=== PATIENT | female | born 1970 | race Caucasian/White ===

== ENCOUNTER 2017-09-28 10:03 | Emergency (ER) | payer OTHER | END 2017-09-28 12:17 | disposition home or self-care (01) | LOC: M ED 10:03 | DX: Z76.0 Encounter for issue of repeat prescription (principal); M17.11 Unilateral primary osteoarthritis, right knee; M17.12 Unilateral primary osteoarthritis, left knee; Z79.899 Other long term (current) drug therapy; Z88.0 Allergy status to penicillin; Z88.5 Allergy status to narcotic agent | CPT/HCPCS: 99283 ==

== ENCOUNTER → 2017-11-06 | Outpatient (REF) | payer OTHER ==
[2017-11-06 19:00] LABS: ESTIMATED AVERAGE GLUCOSE 108 MG/DL (60-110); HEMOGLOBIN A1c 5.4 %; TOTAL 25(OH) VITAMIN D 15.6 NG/ML (30.0-100.0)
[2017-11-06 19:05] LABS: ALBUMIN 3.6 GM/DL (3.2-5.2); ALBUMIN/GLOBULIN RATIO 0.95 (1.00-1.93); ALKALINE PHOSPHATASE 79 U/L (45-117); ALT/SGPT 27 U/L (12-78); ANION GAP 9 MEQ/L (8-16); AST/SGOT 14 U/L (7-37); BILIRUBIN,TOTAL 0.5 MG/DL (0.2-1.0); BLOOD UREA NITROGEN 11 MG/DL (7-18); CALCIUM LEVEL 8.1 MG/DL (8.5-10.1); CARBON DIOXIDE LEVEL 25 MEQ/L (21-32); CHLORIDE LEVEL 103 MEQ/L (98-107); CHOLESTEROL LEVEL 214 MG/DL (<200); CHOLESTEROL RISK RATIO 4.976 (<5); CREATININE FOR GFR 0.64 MG/DL (0.55-1.30); GLOMERULAR FILTRATION RATE > 60.0 (>58); GLUCOSE, FASTING 99 MG/DL (70-100); HDL CHOLESTEROL 43 MG/DL (>40); LDL CHOLESTEROL 125.2 MG/DL (<100); NON-HDL-C 171 MG/DL; SODIUM LEVEL 137 MEQ/L (136-145); TOTAL PROTEIN 7.4 GM/DL (6.4-8.2); TRIGLYCERIDES LEVEL 229 MG/DL (<150)
== END ==
LOC: M LAB REF 17:16
DX: E78.5 Hyperlipidemia, unspecified (principal); Z13.9 Encounter for screening, unspecified
CPT/HCPCS: 84443

== ENCOUNTER → 2017-11-13 | Outpatient (REF) | payer OTHER ==
[2017-11-13 20:11] LABS: LUTEINIZING HORMONE 2.5 mIU/mL
[2017-11-17 08:16] LABS: ESTROGENS TOTAL 107 pg/mL (.)
== END ==
LOC: M LAB REF 18:56
DX: Z13.9 Encounter for screening, unspecified (principal)

== ENCOUNTER → 2018-04-12 | Outpatient (CLI) | payer OTHER | LOC: M PAIN 14:30 | DX: M25.561 Pain in right knee (principal); M25.562 Pain in left knee; M17.0 Bilateral primary osteoarthritis of knee; G89.29 Other chronic pain; E66.01 Morbid (severe) obesity due to excess calories; Z68.43 Body mass index [BMI] 50.0-59.9, adult; Z79.899 Other long term (current) drug therapy; Z88.0 Allergy status to penicillin; Z88.1 Allergy status to other antibiotic agents; Z88.5 Allergy status to narcotic agent; Z87.891 Personal history of nicotine dependence | CPT/HCPCS: G0463 ==

== ENCOUNTER 2018-04-29 11:44 | Emergency (ER) | payer OTHER | END 2018-04-29 12:59 | disposition home or self-care (01) | LOC: M ED 11:44 | DX: M19.90 Unspecified osteoarthritis, unspecified site (principal); M79.606 Pain in leg, unspecified; M06.9 Rheumatoid arthritis, unspecified; F17.200 Nicotine dependence, unspecified, uncomplicated; Z88.8 Allergy status to other drugs, medicaments and biological substances; Z79.899 Other long term (current) drug therapy | CPT/HCPCS: 73590 ==

== ENCOUNTER → 2018-05-17 | Outpatient (CLI) | payer OTHER ==
[~2018-05-17] MED LIST: CBD OIL; GABA-1171 PO; MOBI4TAB PO; OXYC1TAB23 PO; SUPE1POW PO; TRAM50TA2 PO; TURM500C3 PO; ULTR50TA8 PO
--- NOTE | 2018-06-02 23:34 | ECWPNPC ---
PATIENT NAME: ALEXEI BARROS : 1970 GENDER: FEMALE VISIT DATE: 05/17/2018 DISCHARGE DATE: 05/17/18 1608 VISIT LOCKED DATE TIME: PHYSICIAN: TYRELL BARCENAS MD RESOURCE: TYRELL BARCENAS MD REASON FOR APPOINTMENT 1. F/U KNEE PAIN HISTORY OF PRESENT ILLNESS HISTORY OF PRESENT ILLNESS: PAIN THE PATIENT DESCRIBES THE PAIN... 48 YEAR OLD FEMALE PATIENT WITH A HISTORY OF CHRONIC KNEE PAIN. THE PATIENT DESCRIBES THE PAIN ACHING, BURNING, SHARP, SORE, TENDER, STABBING, SHOOTING, AND LASTING ALL DAY WITH A PAIN SCORE OF 10/10. THE PATIENT SAYS SHE HAS HAD THIS PAIN SINCE AROUND 2011 WHEN SHE FOUND OUT SHE HAS ARTHRITIS IN HER KNEES. THE PATIENT SAYS THAT SHE WAS TOLD THAT SHE IS TOO YOUNG FOR SURGERY AND WAS PRESCRIBED TRAMADOL FOR THE PAIN. THE PATIENT WAS USING VOLTAREN GEL, BUT REPORTS THAT IT DID NOT HELP WITH HER PAIN. THE PATIENT IS CURRENTLY USING IBUPROFEN AND BACLOFEN TO AID IN PAIN RELIEF. THE PATIENT SAYS SHE HAS BEEN USING VICODIN TEMPORARILY SINCE THE PAIN HAS BEEN SEVERE. THE PATIENT WENT TO THE EMERGENCY ROOM RECENTLY FOR A PULLED MUSCLE IN HER LEG. PATIENT DENIES UNEXPLAINABLE WEIGHT LOSS, FEVER, CHILLS, NEW CHANGES ON HER URINARY OR BOWEL CONTROL. FALL RISK SCREENING: SCREENING :NO FALLS IN THE PAST YEAR CURRENT MEDICATIONS TAKING IBUPROFEN 800 MG TABLET 1 TABLET WITH FOOD OR MILK NEEDED ORALLY THREE TIMES A DAY TAKING VITAMIN D-3 5000 UNIT TABLET 1 TABLET ORALLY EVERY OTHER DAY TAKING VICODIN _ 7.5/325 MGS 1 TAB ORAL THREE TIMES DAILY NEEDED TAKING BACLOFEN 10 MG TABLET 1 TABLET WITH FOOD OR MILK ORALLY TWICE A DAY NEEDED NOT-TAKING VOLTAREN 1 % GEL 1 STRIP TRANSDERMAL AT EACH KNEE THREE TIMES DAILY NEEDED FOR PAIN DISCONTINUED TRAMADOL HCL ER 300 MG TABLET EXTENDED RELEASE 24 HOUR 1 TABLET ORALLY ONCE A DAY DISCONTINUED VITAMIN D 74368 U TABLET 1 NULL ORALLY , NOTES: EVERY OTHER [facility] MEDICATION LIST REVIEWED AND RECONCILED WITH THE PATIENT PAST MEDICAL HISTORY ARTHRITIS BILATERAL KNEE ANXIETY AND DEPRESSION PULLED MUSCLE RIGHT LOWER LEG ALLERGIES IODINE: RASH: ALLERGY PENICILLIN (FOR ALLERGIES USE ONLY): ANAPHYLAXIS: ALLERGY DEMEROL: HEART RACED: ALLERGY LIDOCAINE: SEVERE HEART RACING FOR DAYS: ALLERGY SURGICAL HISTORY NO SURGICAL HISTORY DOCUMENTED. FAMILY HISTORY FATHER: , DIAGNOSED WITH DIABETES, OTHER MOTHER: , DIAGNOSED WITH CANCER SIBLINGS: ALIVE SON(S): ALIVE DAUGHTER(S): ALIVE 2 SON(S) , 4 DAUGHTER(S) . FATHER- ALCOHOLISMMOM-LUNG CASISTER HAS MS1 DAUGHTER HAS AUTO IMMUNE DISORDER. SOCIAL HISTORY GENERAL: TOBACCO USE ARE YOU A:FORMER SMOKER 21 YEARS AGO ALCOHOL SCREENING DID YOU HAVE A DRINK CONTAINING ALCOHOL IN THE PAST YEAR?NO POINTS0 INTERPRETATIONNEGATIVE RECREATIONAL DRUG USE DRUG USE?NO CAFFEINE CAFFEINE USE?NO RESTORATION RESTORATION NON DEMONIATIONAL LANGUAGE LANGUAGES SPOKEN:FRISIAN PRIMARY LANGUQGE BARBADIAN EDUCATION LEVEL OF EDUCATION:FINISHED COLLEGE LEARNING BARRIERS / SPECIAL NEEDS BARRIERS TO LEARNING?NO HEARING IMPAIRED?NO VISION IMPAIRED?YES :CORRECTIVE LENSES COGNITIVELY IMPAIRED?NO READINESS TO LEARN?YES LEARNING PREFERENCES?YES :TAPES/VIDEOS, DEMONSTRATION/VERBAL INSTRUCTION LEARNING CAPABILITIES PRESENT?YES EMOTIONAL BARRIERS?NO SPECIAL DEVICES?NO SINGER AND UNLOADER NEEDED?NO OCCUPATION: DO YOU FEEL SAFE IN YOUR ENVIRONMENT? YES. MARITAL STATUS: . OTHERS AT HOME: DO YOU FEEL SAFE IN YOUR ENVIRONMENT? 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 IMMUNIZATION PROGRAM DO YOU FEEL SAFE IN YOUR ENVIRONMENT? 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 PAIN CLINIC PFS, CLERGY, PUBLIC HEALTH REFERRALS PFS REFERRAL NEEDED?NO CLERGY REFERRAL NEEDED?NO PUBLIC HEALTH REFERRAL NEEDED?NO WAS THE PROVIDER NOTIFIED OF ANY PERTINENT INFO? N/A HAS THE PATIENT BEEN EDUCATED REGARDING HIS/HER PLAN OF CARE?YES HAS THE PATIENT BEEN EDUCATED REGARDING PAIN, THE RISK FOR PAIN, THE IMPORTANCE OF EFFECTIVE PAIN MANAGEMENT, AND THE PAIN ASSESSMENT PROCESS?YES ADVANCE DIRECTIVE ADVANCE DIRECTIVE DISCUSSED WITH PATIENT:NO 05/17/18 PT DOES NOT HAVE ANY ADVANCED DIRECTIVES AND SHE DECLINES INFORMATION ON HCP AT THIS TIME. AD 05/17/18 REVIEWED WITH PT. AD. HOSPITALIZATION/MAJOR DIAGNOSTIC PROCEDURE CHILDBIRTH X 6 REVIEW OF SYSTEMS REVIEWED BY: PROVIDER: TYRELL BARCENAS MD . CONSTITUTIONAL: ANY CHANGE IN YOUR MEDICAL CONDITION? YES, 2 1/2 WEEKS AGO--PULLED MUSCLE IN RIGHT LOWER LEG--NO KNOWN INJURY. WAS SEEN HERE IN THE ED. . CHILLS NO . FEVER NO . INFECTION: DO YOU HAVE NEW INFECTIONS? NO . DO YOU HAVE HISTORY OF MRSA? NO . MUSCULOSKELETAL: ANY NEW PATTERNS OF PAIN OR NUMBNESS? YES, PAIN HAS INCREASED IN RIGHT LOWER LEG SINCE HAVING THE MUSCLE TEAR. . GASTROENTEROLOGY: ANY NEW CHANGE IN BOWEL CONTROL? NO . GENITOURINARY: ANY NEW CHANGE IN BLADDER CONTROL? NO . IS THERE A CHANCE YOU COULD BE ? NO . HEMATOLOGY/LYMPH: DO YOU TAKE ANY BLOOD THINNERS? (FOR EXAMPLE- COUMADIN, PLAVIX, AGGRENOX, PLATEL, PRADAXA, OR XARELTO) NO . WHEN WAS YOUR LAST DOSE? DATE: TIME: . NEUROLOGY: HAVE YOU FALLEN IN THE PAST 6 MONTHS? NO . ANY NEW EXTREMITY NUMBNESS OR WEAKNESS? NO . CARDIOLOGY: DO YOU HAVE A PACEMAKER OR DEFIBRILLATOR? NO . RESPIRATORY: HAVE YOU BEEN SICK IN THE PAST WEEK? NO . FEVER NO . FLU LIKE SYMPTOMS? NO . COUGH NO . INTEGUMENTARY: DO YOU HAVE ANY RASHES OR OPEN SORES? NO . ALLERGIC/IMMUNO: ARE YOU ALLERGIC TO SHELLFISH OR IV DYE? NO . ANY NEW ALLERGIES? NO . PSYCHIATRIC: DO YOU HAVE THOUGHTS OF HURTING YOURSELF OR SOMEONE ELSE? NO . ARE YOU ABUSED, NEGLECTED, OR IN AN UNSAFE ENVIRONMENT? NO . ENDOCRINOLOGY: ARE YOU DIABETIC? NO . OTHER: DO YOU NEED ANY PRESCRIPTIONS? NO . IF YES, PLEASE LIST: ____ . ANY NEW PROBLEMS WITH YOUR MEDICATIONS? NO . WHEN DID YOU LAST EAT? ____ . WHEN DID YOU LAST DRINK? ____ . WHAT DID YOU LAST DRINK? ____ . NAME OF PERSON DRIVING YOU HOME? ____ . DO YOU HAVE ANY OTHER QUESTIONS OR CONCERNS NO HAD FLU VACCINE 04/2018 PT WOULD LIKE TO DISCUSS CBD OIL. HER COUNSELOR WOULD LIKE TO PUT HER ON AN ANTI-ANXIETY AND IS CAUSTIOUS DO TO MEDS PRESCRIBED HER__ANY RECOMMENDATIONS? . VITAL SIGNS WT 218 LBS, HT 55 IN, BMI 50.66 INDEX, BP 136/79 MM HG, HR 88 /MIN, RR 18 /MIN, TEMP 97.5 F, OXYGEN SAT % 97%, SAFE IN ENV? (Y/N) Y, NA INITIALS AW 1415, REVIEWED BY: AD. EXAMINATION GENERAL EXAMINATION: PATIENT IS ALERT O X 3 AND COOPERATIVE. TENDERNESS OVER BOTH KNEES. ASSESSMENTS OSTEOARTHRITIS OF BOTH KNEES, UNSPECIFIED OSTEOARTHRITIS TYPE - M17.0 (PRIMARY) TREATMENT OSTEOARTHRITIS OF BOTH KNEES, UNSPECIFIED OSTEOARTHRITIS TYPE CLINICAL NOTES: WE DISCUSSED SEVERAL ISSUES WITH MRS. BARROS'S PAIN MANAGEMENT CASE. I WOULD THE PATIENT TO START USING NUCYNTA TO SEE IF THAT HELPS RELIEVE HER PAIN. ISTOP _[id number] WAS REVIEWED. THE PATIENT WILL SIGN A NARCOTIC AGREEMENT AND DO A URINE TOXICOLOGY TODAY. I WILL GET THE PATIENT'S KNEE MRI'S FROM [facility], BUT I WILL ALSO ORDER NEW ONES DUE TO THE SEVERE PAIN AND IT HAS BEEN SEVERAL YEARS SINCE THE PATIENT'S LAST MRI. THE PATIENT WILL FOLLOW UP IN 3 WEEKS. INSTRUCTIONS WERE GIVEN, QUESTIONS WERE ANSWERED, PATIENT REPORTS UNDERSTANDING AND AGREES WITH THE PLAN. I, CAMI NAVA, DOCUMENTED THE ABOVE INFORMATION ACTING A SCRIBE FOR DR. BARCENAS. I HAVE REVIEWED THE ABOVE DOCUMENT, WRITTEN BY CAMI JEFFIBAraceli AND I VERIFY THAT IT IS ACCURATE. OTHERS START NUCYNTA TABLET, 50 MG, 1 TABLET NEEDED, ORALLY FOR PAIN, EVERY 6 HRS MDD3, 21 DAY(S), 55, REFILLS 0 PREVENTIVE MEDICINE PAIN CLINIC TEACHING: MEDICATIONS PRINTED MATERIAL GIVEN FOR NEW MEDICATION NUCYNTA AND DISCUSSED WITH PT. PROCEDURE CODES FA211 ESTABILISHED PATIENT [facility]AC[facility] CHARGE G8427 CURRENT MEDS W/DOSAGES DOCUMENTED G8730 PAIN ASSESS POS TOOL F/U PLAN DOC DISPOSITION & COMMUNICATION FOLLOW UP 3 WEEKS ELECTRONICALLY SIGNED BY TYRELL BARCENAS MD, MD ON 06/02/2018 AT 09:00 PM EST DISCLAIMER : THIS IS A VISIT SUMMARY EXTRACTED FROM THE [employer] CHART. IT IS NOT A COPY OF THE [employer] PROGRESS NOTE. MTDLiyah
== END ==
LOC: M PAIN 14:00
PROVIDERS: ATTEND Anesthesiology
DX: M17.0 Bilateral primary osteoarthritis of knee (principal); G89.29 Other chronic pain; F41.9 Anxiety disorder, unspecified; F32.9 Major depressive disorder, single episode, unspecified; E66.01 Morbid (severe) obesity due to excess calories; Z68.43 Body mass index [BMI] 50.0-59.9, adult; Z79.899 Other long term (current) drug therapy; Z88.0 Allergy status to penicillin; Z88.1 Allergy status to other antibiotic agents; Z88.5 Allergy status to narcotic agent; Z88.8 Allergy status to other drugs, medicaments and biological substances; Z87.891 Personal history of nicotine dependence

== ENCOUNTER → 2018-06-06 | Outpatient (CLI) | payer OTHER ==
--- NOTE | 2018-06-25 00:15 | ECWPNPC ---
PATIENT NAME: ALEXEI BARROS : 1970 GENDER: FEMALE VISIT DATE: 06/06/2018 DISCHARGE DATE: 06/06/18 1253 VISIT LOCKED DATE TIME: PHYSICIAN: TYRELL BARCENAS MD RESOURCE: TYRELL BARCENAS MD REASON FOR APPOINTMENT 1. KNEE PAIN PARKING NOW HISTORY OF PRESENT ILLNESS HISTORY OF PRESENT ILLNESS: PAIN THE PATIENT DESCRIBES THE PAIN... 48 YEAR OLD FEMALE PATIENT WITH A HISTORY OF CHRONIC KNEE PAIN. THE PATIENT DESCRIBES THE PAIN ACHING, BURNING, SORE, TENDER, SHARP, STABBING, SHOOTING, AND LASTING ALL DAY WITH A PAIN SCORE OF 5-9/10 DEPENDING ON PHYSICAL ACTIVITY. THE PATIENT IS CURRENTLY USING NUCYNTA TO AID IN PAIN RELIEF AND SAYS THAT THE USE OF THIS MEDICATION HELPS HER REMAIN MOBILE AND FUNCTIONAL. THE PATIENT SAYS THAT SHE HAS BEEN EXPERIENCING SOME CONSTIPATION SINCE STARTING THE NUCYNTA. PATIENT DENIES UNEXPLAINABLE WEIGHT LOSS, FEVER, CHILLS, NEW CHANGES ON HER URINARY CONTROL. FALL RISK SCREENING: SCREENING :NO FALLS IN THE PAST YEAR CURRENT MEDICATIONS TAKING NUCYNTA 50 MG TABLET 1 TABLET NEEDED ORALLY FOR PAIN EVERY 6 HRS MDD3 TAKING IBUPROFEN 800 MG TABLET 1 TABLET WITH FOOD OR MILK NEEDED ORALLY THREE TIMES A DAY TAKING VITAMIN D-3 5000 UNIT TABLET 1 TABLET ORALLY EVERY OTHER DAY TAKING BACLOFEN 10 MG TABLET 1 TABLET WITH FOOD OR MILK ORALLY TWICE A DAY NEEDED TAKING PRILOSEC 20 MG CAPSULE DELAYED RELEASE 1 CAPSULE ORALLY ONCE A DAY TAKING VOLTAREN 1 % GEL 1 STRIP TRANSDERMAL AT EACH KNEE THREE TIMES DAILY NEEDED FOR PAIN NOT-TAKING VICODIN _ 7.5/325 MGS 1 TAB ORAL THREE TIMES DAILY NEEDED MEDICATION LIST REVIEWED AND RECONCILED WITH THE PATIENT PAST MEDICAL HISTORY ARTHRITIS BILATERAL KNEE ANXIETY AND DEPRESSION PULLED MUSCLE RIGHT LOWER LEG ALLERGIES IODINE: RASH: ALLERGY PENICILLIN (FOR ALLERGIES USE ONLY): ANAPHYLAXIS: ALLERGY DEMEROL: HEART RACED: ALLERGY LIDOCAINE: SEVERE HEART RACING FOR DAYS: ALLERGY SURGICAL HISTORY NO SURGICAL HISTORY DOCUMENTED. FAMILY HISTORY FATHER: , DIAGNOSED WITH DIABETES, OTHER MOTHER: , DIAGNOSED WITH CANCER SIBLINGS: ALIVE SON(S): ALIVE DAUGHTER(S): ALIVE 2 SON(S) , 4 DAUGHTER(S) . FATHER- ALCOHOLISMMOM-LUNG CASISTER HAS MS1 DAUGHTER HAS AUTO IMMUNE DISORDER. SOCIAL HISTORY GENERAL: TOBACCO USE ARE YOU A:FORMER SMOKER 21 YEARS AGO ALCOHOL SCREENING DID YOU HAVE A DRINK CONTAINING ALCOHOL IN THE PAST YEAR?NO POINTS0 INTERPRETATIONNEGATIVE RECREATIONAL DRUG USE DRUG USE?NO CAFFEINE CAFFEINE USE?NO ORIENTAL ORTHODOX ORIENTAL ORTHODOX NON DEMONIATIONAL LANGUAGE LANGUAGES SPOKEN:SLOVENIAN PRIMARY LANGUQGE SWEDISH EDUCATION LEVEL OF EDUCATION:FINISHED COLLEGE LEARNING BARRIERS / SPECIAL NEEDS BARRIERS TO LEARNING?NO HEARING IMPAIRED?NO VISION IMPAIRED?YES :CORRECTIVE LENSES COGNITIVELY IMPAIRED?NO READINESS TO LEARN?YES LEARNING PREFERENCES?YES :TAPES/VIDEOS, DEMONSTRATION/VERBAL INSTRUCTION LEARNING CAPABILITIES PRESENT?YES EMOTIONAL BARRIERS?NO SPECIAL DEVICES?NO SPRING TACKER NEEDED?NO OCCUPATION: DO YOU FEEL SAFE IN YOUR ENVIRONMENT? YES. MARITAL STATUS: . OTHERS AT HOME: DO YOU FEEL SAFE IN YOUR ENVIRONMENT? 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 IMMUNIZATION PROGRAM DO YOU FEEL SAFE IN YOUR ENVIRONMENT? 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 PAIN CLINIC PFS, CLERGY, PUBLIC HEALTH REFERRALS PFS REFERRAL NEEDED?NO CLERGY REFERRAL NEEDED?NO PUBLIC HEALTH REFERRAL NEEDED?NO WAS THE PROVIDER NOTIFIED OF ANY PERTINENT INFO? N/A HAS THE PATIENT BEEN EDUCATED REGARDING HIS/HER PLAN OF CARE?YES HAS THE PATIENT BEEN EDUCATED REGARDING PAIN, THE RISK FOR PAIN, THE IMPORTANCE OF EFFECTIVE PAIN MANAGEMENT, AND THE PAIN ASSESSMENT PROCESS?YES ADVANCE DIRECTIVE ADVANCE DIRECTIVE DISCUSSED WITH PATIENT:NO 05/17/18 PT DOES NOT HAVE ANY ADVANCED DIRECTIVES AND SHE DECLINES INFORMATION ON HCP AT THIS TIME. AD 05/17/18 REVIEWED WITH PT. AD. HOSPITALIZATION/MAJOR DIAGNOSTIC PROCEDURE CHILDBIRTH X 6 REVIEW OF SYSTEMS REVIEWED BY: PROVIDER: TYRELL BARCENAS MD . CONSTITUTIONAL: ANY CHANGE IN YOUR MEDICAL CONDITION? NO . CHILLS NO . FEVER NO . INFECTION: DO YOU HAVE NEW INFECTIONS? NO . DO YOU HAVE HISTORY OF MRSA? NO . MUSCULOSKELETAL: ANY NEW PATTERNS OF PAIN OR NUMBNESS? NO . GASTROENTEROLOGY: ANY NEW CHANGE IN BOWEL CONTROL? NO . GENITOURINARY: ANY NEW CHANGE IN BLADDER CONTROL? NO . IS THERE A CHANCE YOU COULD BE ? NO . HEMATOLOGY/LYMPH: DO YOU TAKE ANY BLOOD THINNERS? (FOR EXAMPLE- COUMADIN, PLAVIX, AGGRENOX, PLATEL, PRADAXA, OR XARELTO) NO . WHEN WAS YOUR LAST DOSE? DATE: TIME: . NEUROLOGY: HAVE YOU FALLEN IN THE PAST 12 MONTHS? NO . ANY NEW EXTREMITY NUMBNESS OR WEAKNESS? NO . CARDIOLOGY: DO YOU HAVE A PACEMAKER OR DEFIBRILLATOR? NO . RESPIRATORY: HAVE YOU BEEN SICK IN THE PAST WEEK? NO . FEVER NO . FLU LIKE SYMPTOMS? NO . COUGH NO . INTEGUMENTARY: DO YOU HAVE ANY RASHES OR OPEN SORES? NO . ALLERGIC/IMMUNO: ARE YOU ALLERGIC TO IV DYE? NO . ANY NEW ALLERGIES? NO . PSYCHIATRIC: DO YOU HAVE THOUGHTS OF HURTING YOURSELF OR SOMEONE ELSE? NO . ARE YOU ABUSED, NEGLECTED, OR IN AN UNSAFE ENVIRONMENT? NO . ENDOCRINOLOGY: ARE YOU DIABETIC? NO . OTHER: DO YOU NEED ANY PRESCRIPTIONS? YES NUCYNTA . IF YES, PLEASE LIST: ____ . ANY NEW PROBLEMS WITH YOUR MEDICATIONS? NO . WHEN DID YOU LAST EAT? ____ . WHEN DID YOU LAST DRINK? ____ . WHAT DID YOU LAST DRINK? ____ . NAME OF PERSON DRIVING YOU HOME? ____ . DO YOU HAVE ANY OTHER QUESTIONS OR CONCERNS NO . VITAL SIGNS WT 218 LBS, HT 55 IN, BMI 50.66 INDEX, BP 141/71 MM HG, HR 104 /MIN, RR 18 /MIN, TEMP 97.2 F, OXYGEN SAT % 99%, NA INITIALS AW 1152, REVIEWED BY: KG. EXAMINATION GENERAL EXAMINATION: PATIENT IS ALERT O X 3 AND COOPERATIVE. ASSESSMENTS OSTEOARTHRITIS OF BOTH KNEES, UNSPECIFIED OSTEOARTHRITIS TYPE - M17.0 (PRIMARY) OTHER CHRONIC PAIN - G89.29 PAIN IN LEFT KNEE - M25.562 PAIN IN RIGHT KNEE - M25.561 TREATMENT OSTEOARTHRITIS OF BOTH KNEES, UNSPECIFIED OSTEOARTHRITIS TYPE CLINICAL NOTES: WE DISCUSSED SEVERAL ISSUES WITH MRS. BARROS'S PAIN MANAGEMENT CASE. THE PATIENT IS HAVING THE MRI OF BOTH KNEES NEXT WEEK AND I WILL REVIEW IT AT HER NEXT APPOINTMENT. THE PATIENT WILL CONTINUE USING THE NUCYNTA. ISTOP _[id number] WAS REVIEWED. THE PATIENT BROUGHT THE MEDICATION WITH HER TO TODAY'S VISIT IN THE ORIGINAL BOTTLE. URINE TOXICOLOGY DONE ON 05/17/2018 SHOWS CONCURRENT RESULTS. I WOULD LIKE THE PATIENT TO START USING MOVANTIK DUE TO THE OPIOID INDUCED CONSTIPATION SHE HAS BEEN EXPERIENCING. THE PATIENT WILL FOLLOW UP IN 3 WEEKS. INSTRUCTIONS WERE GIVEN, QUESTIONS WERE ANSWERED, PATIENT REPORTS UNDERSTANDING AND AGREES WITH THE PLAN. I, CAMI NAVA, DOCUMENTED THE ABOVE INFORMATION ACTING A SCRIBE FOR DR. BARCENAS. I HAVE REVIEWED THE ABOVE DOCUMENT, WRITTEN BY CAMI JEFFIBE AND I VERIFY THAT IT IS ACCURATE. OTHERS REFILL NUCYNTA TABLET, 50 MG, 1 TABLET NEEDED, ORALLY FOR PAIN, EVERY 6 HRS MDD3, 30 DAYS, 90, REFILLS 0 START MOVANTIK TABLET, 12.5 MG, 1 TABLET IN THE MORNING, ORALLY FOR CONSTIPATION, ONCE A DAY, 30 DAY(S), 30, REFILLS 1 PROCEDURE CODES FA211 ESTABILISHED PATIENT [facility] CHARGE G8427 CURRENT MEDS W/DOSAGES DOCUMENTED G8730 PAIN ASSESS POS TOOL F/U PLAN DOC DISPOSITION & COMMUNICATION FOLLOW UP 3 WEEKS (REASON: KNEE PAIN) ELECTRONICALLY SIGNED BY TYRELL BARCENAS MD, ON 06/24/2018 AT 06:20 PM EST DISCLAIMER : THIS IS A VISIT SUMMARY EXTRACTED FROM THE [employer] CHART. IT IS NOT A COPY OF THE [employer] PROGRESS NOTE. MTDD
== END ==
LOC: M PAIN 11:30
PROVIDERS: ATTEND Anesthesiology
DX: M17.0 Bilateral primary osteoarthritis of knee (principal); G89.29 Other chronic pain; F41.9 Anxiety disorder, unspecified; F32.9 Major depressive disorder, single episode, unspecified; E66.01 Morbid (severe) obesity due to excess calories; Z68.43 Body mass index [BMI] 50.0-59.9, adult; Z79.899 Other long term (current) drug therapy; Z88.0 Allergy status to penicillin; Z88.1 Allergy status to other antibiotic agents; Z88.5 Allergy status to narcotic agent; Z88.8 Allergy status to other drugs, medicaments and biological substances; Z87.891 Personal history of nicotine dependence

== ENCOUNTER → 2018-06-11 | Outpatient (CLI) | payer OTHER ==
--- NOTE | 2018-06-12 09:45 | REP ---
MRI BILATERAL KNEES: TECHNIQUE: Axial proton density fat saturation, sagittal proton density T2 STIR, water excitation, coronal proton density, proton density fat saturation. RIGHT KNEE: There is a complex tear of the anterior and posterior horns of the medial meniscus. There is fraying of the central aspect of the posterior horn of the lateral meniscus. The cruciate and collateral ligaments are intact. The extensor mechanism is intact. There is moderate diffuse chondromalacia of the patella with some fissuring of the cartilage of the medial patellar facet. There is moderate spurring of the lateral patellar facet and superior and inferior poles of the patella. There is subchondral marrow edema and cystic change involving the lateral patellar facet with fissuring of the cartilage at that location as well. There is relatively mild diffuse chondromalacia in the lateral joint compartment. There is moderately severe chondromalacia along the medial femoral condyle and tibial plateau with associated subchondral marrow edema at these locations. There is moderate spurring of the femoral condyles and tibial plateaus greatest medially. There is a moderate joint effusion. A small amount of fluid extends into the medial popliteal fossa. IMPRESSION: Extensive complex tear anterior and posterior horns medial meniscus. There is fraying centrally of the posterior horn of the lateral meniscus. Cruciate and collateral ligaments are intact. 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 There is fissuring of the cartilage in both the medial and lateral patellar facets with subchondral marrow edema and cystic change in the lateral patellar facet. There is subchondral marrow edema in the medial femoral condyle and tibial plateau. Moderate joint effusion. LEFT KNEE: There is a complex tear of the anterior and posterior horns of the medial meniscus. There is fraying centrally of the posterior horn of the lateral meniscus. Inferior aspect of the anterior cruciate ligament deviates laterally and appears at least partially torn. Posterior cruciate ligament is intact. The collateral ligaments are intact. Extensor mechanism is intact. There is moderate spurring of the lateral patellar facet as well as the superior and inferior poles of the patella. There is moderate diffuse chondromalacia of the patellar cartilage with subchondral cystic changes and marrow edema centrally extending into the lateral patellar facet. Moderate diffuse spurring is seen of the femoral condyles and tibial plateaus. There is mild diffuse chondromalacia in the lateral joint compartment. There is fairly severe chondromalacia of the medial femoral condyle and tibial plateau with subchondral marrow edema and cystic change at these locations. There is a moderate joint effusion. There are tiny loculated cysts posterior to the posterior cruciate ligament inferior aspect. These span 2 cm transversely with a maximum thickness of about 9 mm. IMPRESSION: Complex tears anterior and posterior horns medial meniscus. There is fraying centrally of the posterior horn of the lateral meniscus. Inferior aspect of the anterior cruciate ligament deviates laterally and appears at least partially torn. Significant diffuse chondromalacia, most severe in the medial joint compartment. There is subchondral marrow edema and cystic change in the patella as well as in the medial femoral condyle and tibial plateau. Moderate joint effusion. Tiny loculated cysts are seen posterior to the inferior aspect of the posterior cruciate ligament. Electronically Signed by Sigifredo Garcia MD 06/12/2018 12:44 P
== END ==
LOC: M RAD 16:33
PROVIDERS: ATTEND Anesthesiology
DX: S83.231A Complex tear of medial meniscus, current injury, right knee, initial encounter (principal); M94.261 Chondromalacia, right knee; M25.641 Stiffness of right hand, not elsewhere classified; S83.232A Complex tear of medial meniscus, current injury, left knee, initial encounter; M94.262 Chondromalacia, left knee; M25.462 Effusion, left knee; X58.XXXA Exposure to other specified factors, initial encounter; Y92.9 Unspecified place or not applicable

== ENCOUNTER → 2018-07-03 | Outpatient (REF) | payer OTHER ==
[2018-07-03 20:09] LABS: APPEARANCE, URINE CLEAR (CLEAR); BACTERIA, URINE AUTO NEGATIVE (NEGATIVE); BILIRUBIN, URINE AUTO NEGATIVE (NEGATIVE); BLOOD, URINE BLOOD 2+ (NEGATIVE); COLOR, URINE YELLOW (YELLOW); GLUCOSE, URINE (UA) AUTO NEGATIVE (NEGATIVE); KETONE, URINE AUTO NEGATIVE (NEGATIVE); LEUKOCYTE ESTERASE, URINE AUTO NEGATIVE (NEGATIVE); NITRITE, URINE AUTO NEGATIVE (NEGATIVE); PROTEIN, URINE AUTO NEGATIVE (NEGATIVE); RBC, URINE AUTO 13 /HPF (0-3); SPECIFIC GRAVITY URINE AUTO 1.013 (1.002-1.035); SQUAMOUS EPITHELIAL CELL UR AU 0 /HPF (0-6); UROBILINOGEN, URINE AUTO 0.2 mg/dL (0.0-2.0); WBC, URINE AUTO 0 /HPF (0-3)
== END ==
LOC: M LAB REF 17:24
PROVIDERS: ATTEND Nurse Practitioner Adult Health
DX: Z01.818 Encounter for other preprocedural examination (principal)

== ENCOUNTER → 2018-07-03 | Outpatient (REF) | payer OTHER ==
[2018-07-03 19:31] LABS: CHOLESTEROL RISK RATIO 4.837 (<5); RHEUMATOID FACTOR QUANT 55.7 IU/ML (<15.0); THYROID STIMULATING HORMONE 2.9 uIU/ML (0.358-3.740)
[2018-07-03 19:32] LABS: INR 0.93; PROTHROMBIN TIME 12.6 SECONDS (12.1-14.4)
[2018-07-03 19:33] LABS: TOTAL 25(OH) VITAMIN D 20.4 NG/ML (30.0-100.0)
[2018-07-03 20:19] LABS: HEMOGLOBIN A1c 6.1 %
[2018-07-05 15:05] LABS: ANTINUCLEAR ANTIBODIES DIRECT Negative (Negative)
== END ==
LOC: M LAB REF 17:06
PROVIDERS: ATTEND Nurse Practitioner Adult Health
DX: Z13.9 Encounter for screening, unspecified (principal)

== ENCOUNTER → 2018-08-10 | Outpatient (CLI) | payer OTHER ==
--- NOTE | 2018-08-10 16:10 | REP ---
Clinical: Left calf pain . Technique: Garcia scale and color Doppler evaluation using linear high frequency transducer. Findings: Ultrasound examination of the left lower extremity deep venous structures from the common femoral vein to the popliteal vein demonstrates normal compressibility flow and wave patterns in response to respiration and augmentation. There is no evidence for deep venous thrombosis. Impression: No evidence for deep venous thrombosis. Electronically Signed by Jerson Sood MD 08/10/2018 04:01 P
== END ==
LOC: M RAD 15:12
DX: M79.662 Pain in left lower leg (principal)

== ENCOUNTER → 2018-08-14 | Outpatient (CLI) | payer OTHER | LOC: M PAIN 13:45 | PROVIDERS: ATTEND Anesthesiology | DX: M25.569 Pain in unspecified knee (principal); Z53.29 Procedure and treatment not carried out because of patient's decision for other reasons ==

== ENCOUNTER → 2018-08-16 | Outpatient (REF) | payer OTHER ==
[2018-08-18 15:33] LABS: Lyme Disease IgG/IgM Antibodie <0.91 ISR (0.00-0.90); Lyme Disease IgM Ab Quantitati <0.80 index (0.00-0.79)
[2018-08-21 00:06] LABS: CYCLIC CITRULLINATED PEPTIDE 7 units (0-19)
== END ==
LOC: M LAB REF 18:34
PROVIDERS: ATTEND Nurse Practitioner Adult Health
DX: M06.9 Rheumatoid arthritis, unspecified (principal)

== ENCOUNTER → 2018-09-11 | Outpatient (RCR) | payer OTHER | LOC: M PT 09-03 14:35 | PROVIDERS: ATTEND Orthopaedic Surgery | DX: M17.12 Unilateral primary osteoarthritis, left knee (principal) ==

== ENCOUNTER 2018-10-09 09:15 | Outpatient (RCR) | payer OTHER | END 2018-10-12 | LOC: M PT 09:15 | PROVIDERS: ATTEND Orthopaedic Surgery | DX: M17.12 Unilateral primary osteoarthritis, left knee (principal) ==

== ENCOUNTER → 2018-11-01 | Outpatient (REF) | payer OTHER ==
[2018-11-01 19:25] LABS: BASO # 0.1 10^3/uL (0.0-0.2); BASO % 0.8 % (0.0-1.0); EOS # 0.1 10^3/uL (0.0-0.50); EOS % 0.8 % (0.0-3.0); HEMATOCRIT 43.9 % (36.0-47.0); HEMOGLOBIN 14.2 g/dl (12.0-15.5); LYMPH # 2.9 10^3/uL (1.5-4.5); LYMPH % 37.9 % (24.0-44.0); MEAN CORPUSCULAR HEMOGLOBIN 28.4 pg (27.0-33.0); MEAN CORPUSCULAR HGB CONC 32.3 g/dl (32.0-36.5); MEAN CORPUSCULAR VOLUME 87.8 fl (80.0-96.0); MONO # 0.7 10^3/uL (0.0-0.8); MONO % 9.7 % (0.0-5.0); NEUTROPHILS # 3.8 10^3/uL (1.8-7.7); NEUTROPHILS % 50.5 % (36.0-66.0); PLATELET COUNT, AUTOMATED 346 10^3/uL (150-450); WHITE BLOOD COUNT 7.6 10^3/uL (4.0-10.0)
[2018-11-01 19:28] LABS: ALBUMIN 3.9 GM/DL (3.2-5.2); ALT/SGPT 41 U/L (12-78); BILIRUBIN,TOTAL 0.4 MG/DL (0.2-1.0); BLOOD UREA NITROGEN 12 MG/DL (7-18); CALCIUM LEVEL 9.2 MG/DL (8.5-10.1); CARBON DIOXIDE LEVEL 26 MEQ/L (21-32); CHLORIDE LEVEL 103 MEQ/L (98-107); CPK CREATINE PHOSPHOKINASE 58 U/L (26-192); CREATININE FOR GFR 0.77 MG/DL (0.55-1.30); GLOMERULAR FILTRATION RATE > 60.0 (>51); GLUCOSE, FASTING 80 MG/DL (70-100); PHOSPHORUS LEVEL 3.9 MG/DL (2.5-4.9); POTASSIUM SERUM 4.2 MEQ/L (3.5-5.1); SODIUM LEVEL 137 MEQ/L (136-145); TOTAL PROTEIN 7.8 GM/DL (6.4-8.2)
[2018-11-01 19:36] LABS: TOTAL 25(OH) VITAMIN D 34.5 NG/ML (30.0-100.0)
== END ==
LOC: M LAB REF 18:36
PROVIDERS: ATTEND Nurse Practitioner Adult Health
DX: R25.2 Cramp and spasm (principal)

== ENCOUNTER → 2018-11-05 | Outpatient (CLI) | payer OTHER ==
--- NOTE | 2018-11-14 00:44 | ECWPNPC ---
PATIENT NAME: ALEXEI BARROS : 1970 GENDER: FEMALE VISIT DATE: 11/05/2018 DISCHARGE DATE: 11/05/18 1428 VISIT LOCKED DATE TIME: PHYSICIAN: TYRELL BARCENAS MD RESOURCE: TYRELL BARCENAS MD REASON FOR APPOINTMENT 1. KNEE PAIN HISTORY OF PRESENT ILLNESS HISTORY OF PRESENT ILLNESS: PAIN THE PATIENT DESCRIBES THE PAIN... 48 YEAR OLD FEMALE PATIENT WITH A HISTORY OF CHRONIC KNEE PAIN. THE PATIENT DESCRIBES THE PAIN ACHING, BURNING, STABBING, SHOOTING, SORE, TENDER, SHARP, AND DAILY WITH A PAIN SCORE OF 6-10/10 DEPENDING ON PHYSICAL ACTIVITY. THE PATIENT HAD A LEFT KNEE OPERATION RECENTLY DONE AND SHE REPORTS FEELING BETTER, BUT STILL EXPERIENCES CRAMPING AT NIGHTS. THE PATIENT SAYS SHE IS NOW EXPERIENCING PAIN IN HER RIGHT KNEE THAT IS BEGINNING TO AFFECT HER HIPS AND BACKS. THE PATIENT STATES SHE PLANS TO HAVE RIGHT KNEE SURGERY WELL. THE PATIENT SAYS SHE IS USING FLEXERIL THAT HELPS WITH PAIN AND SPASMS, HOWEVER IT MAKES HER VERY TIRED. THE PATIENT SAYS SHE IS ALSO USING VICODIN 7.5-325 MG 2-3 TIMES DAILY TO HELP WITH HER PAIN. PATIENT DENIES UNEXPLAINABLE WEIGHT LOSS, FEVER, CHILLS, NEW CHANGES ON HER URINARY OR BOWEL CONTROL. FALL RISK SCREENING: SCREENING :NO FALLS REPORTED IN THE LAST YEAR CURRENT MEDICATIONS TAKING IBUPROFEN 800 MG TABLET 1 TABLET WITH FOOD OR MILK NEEDED ORALLY THREE TIMES A DAY TAKING CYCLOBENZAPRINE HCL 10 MG TABLET 1 TABLET NEEDED ORALLY THREE TIMES A DAY, NOTES: UNSURE OF DOSE TAKING METOPROLOL TARTRATE 50 MG TABLET ER 1 TABLET WITH FOOD ORALLY DAILY TAKING PROTONIX 40 MG TABLET DELAYED RELEASE 1 TABLET ORALLY ONCE A DAY TAKING VICODIN _ 7.5/325 MGS 1 TAB ORAL EVERY 4 HOURS NEEDED TAKING VITAMIN D (ERGOCALCIFEROL) 78601 UNIT CAPSULE 1 CAPSULE ORALLY NOT-TAKING MOVANTIK 12.5 MG TABLET 1 TABLET IN THE MORNING ORALLY FOR CONSTIPATION ONCE A DAY NOT-TAKING SENNOSIDES 15 MG TABLET 1 TABLET AT BEDTIME NEEDED ORALLY FOR CONSTIPATION ONCE A DAY NOT-TAKING SENOKOT 8.6 MG TABLET 2 TABLETS AT BEDTIME NEEDED ORALLY FOR CONSTIPATION ONCE A DAY NOT-TAKING BACLOFEN 10 MG TABLET 1 TABLET WITH FOOD OR MILK ORALLY TWICE A DAY NEEDED NOT-TAKING PRILOSEC 20 MG CAPSULE DELAYED RELEASE 1 CAPSULE ORALLY ONCE A DAY NOT-TAKING VOLTAREN 1 % GEL 1 STRIP TRANSDERMAL AT EACH KNEE THREE TIMES DAILY NEEDED FOR PAIN NOT-TAKING NUCYNTA 50 MG TABLET 1 TABLET NEEDED ORALLY FOR PAIN EVERY 6 HRS MDD3 DISCONTINUED VITAMIN D-3 5000 UNIT TABLET 1 TABLET ORALLY EVERY OTHER DAY MEDICATION LIST REVIEWED AND RECONCILED WITH THE PATIENT PAST MEDICAL HISTORY ARTHRITIS BILATERAL KNEE ANXIETY AND DEPRESSION PULLED MUSCLE RIGHT LOWER LEG HIGH BLOOD PRESSURE / ELEVATED HEART RATE ALLERGIES IODINE: RASH - ALLERGY PENICILLIN (FOR ALLERGIES USE ONLY): ANAPHYLAXIS - ALLERGY DEMEROL: HEART RACED - ALLERGY LIDOCAINE: SEVERE HEART RACING FOR DAYS - ALLERGY SURGICAL HISTORY LEFT KNEE REPLACEMENT 07/24/18 FAMILY HISTORY FATHER: , DIAGNOSED WITH DIABETES, OTHER MOTHER: , CANCER SIBLINGS: ALIVE SON(S): ALIVE DAUGHTER(S): ALIVE 2 SON(S) , 4 DAUGHTER(S) . FATHER- ALCOHOLISMMOM-LUNG CASISTER HAS MS1 DAUGHTER HAS AUTO IMMUNE DISORDER. SOCIAL HISTORY GENERAL: TOBACCO USE ARE YOU A:FORMER SMOKER 21 YEARS AGO IMMUNIZATION PROGRAM DO YOU FEEL SAFE IN YOUR ENVIRONMENT? 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 OTHERS AT HOME: DO YOU FEEL SAFE IN YOUR ENVIRONMENT? 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 EDUCATION LEVEL OF EDUCATION:FINISHED COLLEGE LANGUAGE LANGUAGES SPOKEN:SAMMARINESE PRIMARY LANGUGE AFGHAN RECREATIONAL DRUG USE DRUG USE?NO LEARNING BARRIERS / SPECIAL NEEDS BARRIERS TO LEARNING?NO HEARING IMPAIRED?NO VISION IMPAIRED?YES :CORRECTIVE LENSES COGNITIVELY IMPAIRED?NO READINESS TO LEARN?YES LEARNING PREFERENCES?YES :TAPES/VIDEOS, DEMONSTRATION/VERBAL INSTRUCTION LEARNING CAPABILITIES PRESENT?YES EMOTIONAL BARRIERS?NO SPECIAL DEVICES?NO CANDY ATTENDANT NEEDED?NO PAIN CLINIC PFS, CLERGY, PUBLIC HEALTH REFERRALS PFS REFERRAL NEEDED?NO CLERGY REFERRAL NEEDED?NO PUBLIC HEALTH REFERRAL NEEDED?NO WAS THE PROVIDER NOTIFIED OF ANY PERTINENT INFO? N/A HAS THE PATIENT BEEN EDUCATED REGARDING HIS/HER PLAN OF CARE?YES HAS THE PATIENT BEEN EDUCATED REGARDING PAIN, THE RISK FOR PAIN, THE IMPORTANCE OF EFFECTIVE PAIN MANAGEMENT, AND THE PAIN ASSESSMENT PROCESS?YES LATEX QUESTIONNAIRE LATEX ALLERGY : HAVE YOU EVER DEVELOPED ANY TYPE OF REACTION AFTER HANDLING LATEX PRODUCTS SUCH RUBBER GLOVES, CONDOMS, DIAPHRAGMS, BALLOONS, SOCKS, OR UNDERWEAR?NO LATEX ALLERGY : HAVE YOU EVER DEVELOPED ANY TYPE OF REACTION DURING OR AFTER DENTAL APPOINTMENT, VAGINAL/RECTAL EXAMINATION, SURGICAL PROCEDURE, OR ANY OTHER EXPOSURE?NO LATEX RISK : HAVE YOU EVER HAD ANY DIFFICULTY BREATHING OR HIVES AFTER EATING OR HANDLING ANY FRUITS, OR VEGETABLES; SUCH KIWI, BANANAS, STONE FRUITS, OR CHESTNUTSNO LATEX RISK : DO YOU HAVE A PREVIOUS PERSONAL HISTORY OF MORE THAN NINE SURGERIES, SPINA BIFIDA, OR REPEATED CATHERTIZATIONS? NO LATEX RISK : ARE YOU FREQUENTLY EXPOSED TO LATEX PRODUCTS IN YOUR OCCUPATION?NO DATE ASKED : 08/14/2018 CAFFEINE CAFFEINE USE?NO ADVANCE DIRECTIVE ADVANCE DIRECTIVE DISCUSSED WITH PATIENT:YES PATIENT DECLINED HCP INFORMATION. ANABAPTIST ANABAPTIST NON DEMONIATIONAL MARITAL STATUS: . ALCOHOL SCREENING DID YOU HAVE A DRINK CONTAINING ALCOHOL IN THE PAST YEAR?NO POINTS0 INTERPRETATIONNEGATIVE OCCUPATION: DO YOU FEEL SAFE IN YOUR ENVIRONMENT? YES. 05/17/18 REVIEWED WITH PT. AD. HOSPITALIZATION/MAJOR DIAGNOSTIC PROCEDURE CHILDBIRTH X 6 SURGERY RELATED 07/24/18 REVIEW OF SYSTEMS REVIEWED BY: PROVIDER: TYRELL BARCENAS MD . CONSTITUTIONAL: ANY CHANGE IN YOUR MEDICAL CONDITION? NO . CHILLS NO . FEVER NO . INFECTION: DO YOU HAVE NEW INFECTIONS? NO . DO YOU HAVE HISTORY OF MRSA? NO . MUSCULOSKELETAL: ANY NEW PATTERNS OF PAIN OR NUMBNESS? YES, LEFT LEG PAIN AROUND KNEE . GASTROENTEROLOGY: ANY NEW CHANGE IN BOWEL CONTROL? NO . GENITOURINARY: ANY NEW CHANGE IN BLADDER CONTROL? NO . IS THERE A CHANCE YOU COULD BE ? NO . HEMATOLOGY/LYMPH: DO YOU TAKE ANY BLOOD THINNERS? (FOR EXAMPLE- COUMADIN, PLAVIX, AGGRENOX, PLATEL, PRADAXA, OR XARELTO) NO . WHEN WAS YOUR LAST DOSE? DATE: TIME: . NEUROLOGY: HAVE YOU FALLEN IN THE PAST 12 MONTHS? NO . ANY NEW EXTREMITY NUMBNESS OR WEAKNESS? NO . CARDIOLOGY: DO YOU HAVE A PACEMAKER OR DEFIBRILLATOR? NO . RESPIRATORY: HAVE YOU BEEN SICK IN THE PAST WEEK? NO . FEVER NO . FLU LIKE SYMPTOMS? NO . COUGH NO . INTEGUMENTARY: DO YOU HAVE ANY RASHES OR OPEN SORES? NO . ALLERGIC/IMMUNO: ARE YOU ALLERGIC TO IV DYE? NO . ANY NEW ALLERGIES? NO . PSYCHIATRIC: DO YOU HAVE THOUGHTS OF HURTING YOURSELF OR SOMEONE ELSE? NO . ARE YOU ABUSED, NEGLECTED, OR IN AN UNSAFE ENVIRONMENT? NO . ENDOCRINOLOGY: ARE YOU DIABETIC? NO . OTHER: DO YOU NEED ANY PRESCRIPTIONS? YES, DISCUSS WITH DR . IF YES, PLEASE LIST: ____ . ANY NEW PROBLEMS WITH YOUR MEDICATIONS? YES, ON NEW MEDS SINCE SURGERY. PAIN MANAGEMENT NEEDS TO PRESCRIBE PAIN MEDS . WHEN DID YOU LAST EAT? ____ . WHEN DID YOU LAST DRINK? ____ . WHAT DID YOU LAST DRINK? ____ . NAME OF PERSON DRIVING YOU HOME? ____ . DO YOU HAVE ANY OTHER QUESTIONS OR CONCERNS YES ,PT WOULD LIKE AN INJECTION IN RIGHT LEG . VITAL SIGNS WT 236.2 LBS, HT 55 IN, BMI 54.89 INDEX, BP 133/85 MM HG, HR 99 /MIN, RR 18 /MIN, TEMP 98%, OXYGEN SAT % 98%, NA INITIALS SC 13:21, REVIEWED BY: MEGHAN. EXAMINATION GENERAL EXAMINATION: PATIENT IS ALERT O X 3 AND COOPERATIVE. TENDERNESS OVER THE MEDIAL ASPECT OF THE RIGHT KNEE. MRI OF THE BILATERAL KNEES DONE ON 06/11/2018 SHOWS SEVERAL CHANGES OCCURRING IN BOTH KNEES SUCH , SUBCHONDRAL EDEMA, TEARS OVER MENISCUS, AND EFFUSION. 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 BARROS'S PAIN MANAGEMENT CASE. DUE TO THE KNEE SWELLING AND PAIN, I WOULD LIKE TO MOVE FORWARD WITH A RIGHT KNEE INJECTION AFTER APPROVED BY HER ORTHOPEDIC SURGEON. THE PATIENT WILL CONTINUE WITH HYDROCODONE 7.5-325 MG THAT WAS PRESCRIBED BY HER PRIMARY CARE PHYSICIAN, WHICH I REFILLED FOR HER AT TODAY'S VISIT. I WILL SEEK A NARCOTIC DOCTOR TO DOCTOR AGREEMENT FROM THE PATIENT'S PRIMARY CARE PROVIDER, PRATIMA BECK, TO CONTINUE PRESCRIBING THIS MEDICATION IN THE FUTURE. I WILL START THE PATIENT ON TIZANIDINE 2 MG 1-2 TABLETS PER NIGHT, 50 TOTAL FOR THE MONTH, TO HELP WITH SPASTICITY AND PAIN. UTOX DONE ON 05/19/2018 SHOWS CONCURRENT RESULTS. ISTOP __# [id number] WAS REVIEWED. THE PATIENT WILL FOLLOW UP IN 4 WEEKS. INSTRUCTIONS WERE GIVEN, QUESTIONS WERE ANSWERED, PATIENT REPORTS UNDERSTANDING AND AGREES WITH THE PLAN. I, IRENE HALE, DOCUMENTED THE ABOVE INFORMATION ACTING A SCRIBE FOR DR. BARCENAS. I HAVE REVIEWED THE ABOVE DOCUMENT, WRITTEN BY IRENE JEFFIBAraceli AND I VERIFY THAT IT IS ACCURATE. . OTHERS START TIZANIDINE HCL TABLET, 2 MG, 1 TABLET NEEDED, ORALLY FOR SPASMS AND PAIN, BEFORE BEDTIME MAY REPEAT IN 4 HRS MDD2, 30 DAYS, 50, REFILLS 1 START HYDROCODONE-ACETAMINOPHEN TABLET, 7.5-325 MG, 1 TABLET NEEDED, ORALLY, EVERY 8 HRS PRN FOR PAIN MDD3, 30 DAYS, 90, REFILLS 0 PROCEDURE CODES FA211 ESTABILISHED PATIENT [facility] CHARGE G8427 CURRENT MEDS W/DOSAGES DOCUMENTED G8730 PAIN ASSESS POS TOOL F/U PLAN DOC DISPOSITION & COMMUNICATION FOLLOW UP 4 WEEKS (REASON: RIGHT KNEE INJECTION) ELECTRONICALLY SIGNED BY TYRELL BARCENAS MD, ON 11/13/2018 AT 03:41 PM EDT DISCLAIMER : THIS IS A VISIT SUMMARY EXTRACTED FROM THE [employer] CHART. IT IS NOT A COPY OF THE [employer] PROGRESS NOTE. LOWELL
== END ==
LOC: M PAIN 13:00
PROVIDERS: ATTEND Anesthesiology
DX: G89.29 Other chronic pain (principal); M25.561 Pain in right knee; M25.562 Pain in left knee; M94.261 Chondromalacia, right knee; F41.9 Anxiety disorder, unspecified; F32.9 Major depressive disorder, single episode, unspecified; Z96.652 Presence of left artificial knee joint; Z87.891 Personal history of nicotine dependence; Z79.899 Other long term (current) drug therapy; Z88.0 Allergy status to penicillin; Z88.5 Allergy status to narcotic agent; Z88.8 Allergy status to other drugs, medicaments and biological substances

== ENCOUNTER 2018-11-06 13:00 | Outpatient (RCR) | payer OTHER | END 2018-11-11 | LOC: M PT 13:00 | PROVIDERS: ATTEND Orthopaedic Surgery | DX: M17.12 Unilateral primary osteoarthritis, left knee (principal) ==

== ENCOUNTER 2018-11-13 12:20 | Outpatient (RCR) | payer OTHER | END 2018-11-13 13:45 | disposition home or self-care (01) | LOC: M PT 12:20 | PROVIDERS: ATTEND Orthopaedic Surgery | DX: Z47.1 Aftercare following joint replacement surgery (principal); Z96.652 Presence of left artificial knee joint ==

== ENCOUNTER 2018-12-06 13:45 | Outpatient (RCR) | payer OTHER | END 2018-12-12 | LOC: M PT 13:45 | PROVIDERS: ATTEND Orthopaedic Surgery | DX: Z47.89 Encounter for other orthopedic aftercare (principal); M17.11 Unilateral primary osteoarthritis, right knee ==

== ENCOUNTER → 2018-12-11 | Outpatient (REF) | payer OTHER ==
[2018-12-11 19:48] LABS: BASO % 0.4 % (0.0-1.0); EOS # 0.1 10^3/uL (0.0-0.50); EOS % 0.7 % (0.0-3.0); HEMATOCRIT 42.7 % (36.0-47.0); HEMOGLOBIN 13.6 g/dl (12.0-15.5); LYMPH # 2.7 10^3/uL (1.5-4.5); LYMPH % 30.2 % (24.0-44.0); MEAN CORPUSCULAR HEMOGLOBIN 28.3 pg (27.0-33.0); MEAN CORPUSCULAR HGB CONC 31.9 g/dl (32.0-36.5); MONO # 0.8 10^3/uL (0.0-0.8); MONO % 9.1 % (0.0-5.0); NEUTROPHILS # 5.3 10^3/uL (1.8-7.7); NEUTROPHILS % 59.4 % (36.0-66.0); PLATELET COUNT, AUTOMATED 311 10^3/uL (150-450)
[2018-12-11 19:55] LABS: ALBUMIN 3.9 GM/DL (3.2-5.2); ALT/SGPT 34 U/L (12-78); BILIRUBIN,TOTAL 0.3 MG/DL (0.2-1.0); BLOOD UREA NITROGEN 15 MG/DL (7-18); CARBON DIOXIDE LEVEL 27 MEQ/L (21-32); CHLORIDE LEVEL 105 MEQ/L (98-107); CREATININE FOR GFR 1.01 MG/DL (0.55-1.30); GLOMERULAR FILTRATION RATE > 60.0 (>51); GLUCOSE, FASTING 89 MG/DL (70-100); POTASSIUM SERUM 4.3 MEQ/L (3.5-5.1); SODIUM LEVEL 139 MEQ/L (136-145); TOTAL PROTEIN 7.8 GM/DL (6.4-8.2)
[2018-12-11 20:06] LABS: APPEARANCE, URINE CLEAR (CLEAR); BACTERIA, URINE AUTO NEGATIVE (NEGATIVE); BILIRUBIN, URINE AUTO NEGATIVE (NEGATIVE); BLOOD, URINE BLOOD 2+ (NEGATIVE); COLOR, URINE YELLOW (YELLOW); GLUCOSE, URINE (UA) AUTO NEGATIVE (NEGATIVE); KETONE, URINE AUTO NEGATIVE (NEGATIVE); LEUKOCYTE ESTERASE, URINE AUTO NEGATIVE (NEGATIVE); NITRITE, URINE AUTO NEGATIVE (NEGATIVE); PROTEIN, URINE AUTO NEGATIVE (NEGATIVE); RBC, URINE AUTO 6 /HPF (0-3); SPECIFIC GRAVITY URINE AUTO 1.013 (1.002-1.035); SQUAMOUS EPITHELIAL CELL UR AU 0 /HPF (0-6); UROBILINOGEN, URINE AUTO 0.2 mg/dL (0.0-2.0); WBC, URINE AUTO 0 /HPF (0-3)
[2018-12-11 20:07] LABS: INR 0.93; PROTHROMBIN TIME 12.2 SECONDS (11.8-14.0)
== END ==
LOC: M LAB REF 19:00
PROVIDERS: ATTEND Nurse Practitioner Adult Health
DX: Z01.818 Encounter for other preprocedural examination (principal)

== ENCOUNTER 2018-12-13 14:02 | Outpatient (RCR) | payer OTHER | END 2019-01-12 | LOC: M PT 14:02 | PROVIDERS: ATTEND Orthopaedic Surgery | DX: Z47.1 Aftercare following joint replacement surgery (principal); Z96.652 Presence of left artificial knee joint ==

== ENCOUNTER → 2018-12-21 | Outpatient (CLI) | payer OTHER ==
--- NOTE | 2019-01-02 00:13 | ECWPNPC ---
PATIENT NAME: ALEXEI BARROS : 1970 GENDER: FEMALE VISIT DATE: 12/21/2018 DISCHARGE DATE: 12/21/18 1130 VISIT LOCKED DATE TIME: PHYSICIAN: TYRELL BARCENAS MD RESOURCE: TYRELL BARCENAS MD REASON FOR APPOINTMENT 1. BILATERAL KNEE PAIN HISTORY OF PRESENT ILLNESS HISTORY OF PRESENT ILLNESS: PAIN THE PATIENT DESCRIBES THE PAIN... 48 YEAR OLD FEMALE PATIENT WITH A HISTORY OF CHRONIC KNEE PAIN. THE PATIENT DESCRIBES THE PAIN ACHING, BURNING, SORE, TENDER, SHARP, STABBING AND SHOOTING THROUGHOUT THE DAY WITH A PAIN SCORE OF 5-10/10 DEPENDING ON PHYSICAL ACTIVITY. THE PATIENT HAS A HISTORY OF LEFT KNEE REPLACEMENT SURGERY WHICH HAS HELPED, BUT STATES SHE STILL EXPERIENCES CRAMPING AT NIGHT. THE PATIENT SAYS SHE IS CONSIDERING GETTING RIGHT KNEE SURGERY SOON WELL. THE PATIENT SAYS SHE IS USING TIZANIDINE AND HYDROCODONE AT NIGHT TO HELP WITH THE KNEE PAIN. THE PATIENT STATES SHE IS DOING PHYSICAL THERAPY BUT HAS DISCOMFORT WITH DAILY ACTIVITIES SUCH CLEANING, COOKING, AND WALKING. PATIENT DENIES UNEXPLAINABLE WEIGHT LOSS, FEVER, CHILLS, NEW CHANGES ON HER URINARY OR BOWEL CONTROL. FALL RISK SCREENING: SCREENING :NO FALLS REPORTED IN THE LAST YEAR CURRENT MEDICATIONS TAKING TIZANIDINE HCL 2 MG TABLET 1 TABLET NEEDED ORALLY FOR SPASMS AND PAIN BEFORE BEDTIME MAY REPEAT IN 4 HRS MDD2 TAKING METOPROLOL TARTRATE 50 MG TABLET ER 1 TABLET WITH FOOD ORALLY DAILY TAKING PROTONIX 20 MG TABLET DELAYED RELEASE 1 TABLET ORALLY ONCE A DAY TAKING VICODIN _ 7.5/325 MGS 1 TAB ORAL EVERY 4 HOURS NEEDED TAKING LEXAPRO 10 MG TABLET 1 TABLET ORALLY ONCE A DAY TAKING SINGULAIR 5 MG TABLET CHEWABLE 1 TABLETS ORALLY ONCE A DAY DISCONTINUED IBUPROFEN 800 MG TABLET 1 TABLET WITH FOOD OR MILK NEEDED ORALLY THREE TIMES A DAY DISCONTINUED CYCLOBENZAPRINE HCL 10 MG TABLET 1 TABLET NEEDED ORALLY THREE TIMES A DAY, NOTES: UNSURE OF DOSE DISCONTINUED VITAMIN D (ERGOCALCIFEROL) 05697 UNIT CAPSULE 1 CAPSULE ORALLY DISCONTINUED HYDROCODONE-ACETAMINOPHEN 7.5-325 MG TABLET 1 TABLET NEEDED ORALLY EVERY 8 HRS PRN FOR PAIN MDD3 DISCONTINUED MOVANTIK 12.5 MG TABLET 1 TABLET IN THE MORNING ORALLY FOR CONSTIPATION ONCE A DAY DISCONTINUED SENNOSIDES 15 MG TABLET 1 TABLET AT BEDTIME NEEDED ORALLY FOR CONSTIPATION ONCE A DAY DISCONTINUED SENOKOT 8.6 MG TABLET 2 TABLETS AT BEDTIME NEEDED ORALLY FOR CONSTIPATION ONCE A DAY DISCONTINUED BACLOFEN 10 MG TABLET 1 TABLET WITH FOOD OR MILK ORALLY TWICE A DAY NEEDED DISCONTINUED PRILOSEC 20 MG CAPSULE DELAYED RELEASE 1 CAPSULE ORALLY ONCE A DAY DISCONTINUED VOLTAREN 1 % GEL 1 STRIP TRANSDERMAL AT EACH KNEE THREE TIMES DAILY NEEDED FOR PAIN DISCONTINUED NUCYNTA 50 MG TABLET 1 TABLET NEEDED ORALLY FOR PAIN EVERY 6 HRS MDD3 MEDICATION LIST REVIEWED AND RECONCILED WITH THE PATIENT PAST MEDICAL HISTORY ARTHRITIS BILATERAL KNEE ANXIETY AND DEPRESSION PULLED MUSCLE RIGHT LOWER LEG HIGH BLOOD PRESSURE / ELEVATED HEART RATE PTSD ALLERGIES IODINE: RASH - ALLERGY PENICILLIN (FOR ALLERGIES USE ONLY): ANAPHYLAXIS - ALLERGY DEMEROL: HEART RACED - ALLERGY LIDOCAINE: SEVERE HEART RACING FOR DAYS - ALLERGY SURGICAL HISTORY LEFT KNEE REPLACEMENT 07/24/18 FAMILY HISTORY FATHER: , DIAGNOSED WITH DIABETES, OTHER MOTHER: , CANCER SIBLINGS: ALIVE SON(S): ALIVE DAUGHTER(S): ALIVE 2 SON(S) , 4 DAUGHTER(S) . FATHER- ALCOHOLISMMOM-LUNG CASISTER HAS MS1 DAUGHTER HAS AUTO IMMUNE DISORDER. SOCIAL HISTORY GENERAL: TOBACCO USE ARE YOU A:FORMER SMOKER 21 YEARS AGO IMMUNIZATION PROGRAM DO YOU FEEL SAFE IN YOUR ENVIRONMENT? 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 OTHERS AT HOME: DO YOU FEEL SAFE IN YOUR ENVIRONMENT? 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 EDUCATION LEVEL OF EDUCATION:FINISHED COLLEGE DIET: DISABLED. LANGUAGE LANGUAGES SPOKEN:MONEGASQUE PRIMARY LANGUGE ROMANIAN RECREATIONAL DRUG USE DRUG USE?NO EXERCISE: BIKES. LEARNING BARRIERS / SPECIAL NEEDS BARRIERS TO LEARNING?NO HEARING IMPAIRED?NO VISION IMPAIRED?YES :CORRECTIVE LENSES COGNITIVELY IMPAIRED?NO READINESS TO LEARN?YES LEARNING PREFERENCES?YES :TAPES/VIDEOS, DEMONSTRATION/VERBAL INSTRUCTION LEARNING CAPABILITIES PRESENT?YES EMOTIONAL BARRIERS?NO SPECIAL DEVICES?NO CRYSTAL SYRUP MAKER NEEDED?NO PAIN CLINIC PFS, CLERGY, PUBLIC HEALTH REFERRALS PFS REFERRAL NEEDED?NO CLERGY REFERRAL NEEDED?NO PUBLIC HEALTH REFERRAL NEEDED?NO WAS THE PROVIDER NOTIFIED OF ANY PERTINENT INFO? N/A HAS THE PATIENT BEEN EDUCATED REGARDING HIS/HER PLAN OF CARE?YES HAS THE PATIENT BEEN EDUCATED REGARDING PAIN, THE RISK FOR PAIN, THE IMPORTANCE OF EFFECTIVE PAIN MANAGEMENT, AND THE PAIN ASSESSMENT PROCESS?NO LATEX QUESTIONNAIRE LATEX ALLERGY : HAVE YOU EVER DEVELOPED ANY TYPE OF REACTION AFTER HANDLING LATEX PRODUCTS SUCH RUBBER GLOVES, CONDOMS, DIAPHRAGMS, BALLOONS, SOCKS, OR UNDERWEAR?NO LATEX ALLERGY : HAVE YOU EVER DEVELOPED ANY TYPE OF REACTION DURING OR AFTER DENTAL APPOINTMENT, VAGINAL/RECTAL EXAMINATION, SURGICAL PROCEDURE, OR ANY OTHER EXPOSURE?NO LATEX RISK : HAVE YOU EVER HAD ANY DIFFICULTY BREATHING OR HIVES AFTER EATING OR HANDLING ANY FRUITS, OR VEGETABLES; SUCH KIWI, BANANAS, STONE FRUITS, OR CHESTNUTSNO LATEX RISK : DO YOU HAVE A PREVIOUS PERSONAL HISTORY OF MORE THAN NINE SURGERIES, SPINA BIFIDA, OR REPEATED CATHERIZATIONS? NO LATEX RISK : ARE YOU FREQUENTLY EXPOSED TO LATEX PRODUCTS IN YOUR OCCUPATION?NO DATE ASKED : 12/21/2018 CAFFEINE CAFFEINE USE?NO ADVANCE DIRECTIVE ADVANCE DIRECTIVE DISCUSSED WITH PATIENT:YES PATIENT DECLINED HCP INFORMATION. PENTECOSTAL PENTECOSTAL NON DEMONIATIONAL MARITAL STATUS: . ALCOHOL SCREENING DID YOU HAVE A DRINK CONTAINING ALCOHOL IN THE PAST YEAR?NO POINTS0 INTERPRETATIONNEGATIVE OCCUPATION: DO YOU FEEL SAFE IN YOUR ENVIRONMENT? YES. 05/17/18 REVIEWED WITH PT. AD. HOSPITALIZATION/MAJOR DIAGNOSTIC PROCEDURE CHILDBIRTH X 6 SURGERY RELATED 07/24/18 REVIEW OF SYSTEMS REVIEWED BY: PROVIDER: TYRELL BARCENAS MD . CONSTITUTIONAL: ANY CHANGE IN YOUR MEDICAL CONDITION? YES . CHILLS NO . FEVER NO . INFECTION: DO YOU HAVE NEW INFECTIONS? NO . DO YOU HAVE HISTORY OF MRSA? NO . MUSCULOSKELETAL: ANY NEW PATTERNS OF PAIN OR NUMBNESS? NO . GASTROENTEROLOGY: ANY NEW CHANGE IN BOWEL CONTROL? NO . GENITOURINARY: ANY NEW CHANGE IN BLADDER CONTROL? NO . IS THERE A CHANCE YOU COULD BE ? NO . HEMATOLOGY/LYMPH: DO YOU TAKE ANY BLOOD THINNERS? (FOR EXAMPLE- COUMADIN, PLAVIX, AGGRENOX, PLATEL, PRADAXA, OR XARELTO) NO . WHEN WAS YOUR LAST DOSE? DATE: TIME: . NEUROLOGY: HAVE YOU FALLEN IN THE PAST 12 MONTHS? NO . ANY NEW EXTREMITY NUMBNESS OR WEAKNESS? NO . CARDIOLOGY: DO YOU HAVE A PACEMAKER OR DEFIBRILLATOR? NO . RESPIRATORY: HAVE YOU BEEN SICK IN THE PAST WEEK? NO . FEVER NO . FLU LIKE SYMPTOMS? NO . COUGH NO . INTEGUMENTARY: DO YOU HAVE ANY RASHES OR OPEN SORES? NO . ALLERGIC/IMMUNO: ARE YOU ALLERGIC TO IV DYE? NO . ANY NEW ALLERGIES? NO . PSYCHIATRIC: DO YOU HAVE THOUGHTS OF HURTING YOURSELF OR SOMEONE ELSE? NO . ARE YOU ABUSED, NEGLECTED, OR IN AN UNSAFE ENVIRONMENT? NO . ENDOCRINOLOGY: ARE YOU DIABETIC? NO . OTHER: DO YOU NEED ANY PRESCRIPTIONS? NO . IF YES, PLEASE LIST: ____ . ANY NEW PROBLEMS WITH YOUR MEDICATIONS? NO . WHEN DID YOU LAST EAT? ____ . WHEN DID YOU LAST DRINK? ____ . WHAT DID YOU LAST DRINK? ____ . NAME OF PERSON DRIVING YOU HOME? ____ . DO YOU HAVE ANY OTHER QUESTIONS OR CONCERNS NO . VITAL SIGNS WT 236.8 LBS, HT 55 IN, BMI 55.03 INDEX, BP 131/75 MM HG, HR 70 /MIN, RR 18 /MIN, TEMP 96.4 F, OXYGEN SAT % 96%, SAFE IN ENV? (Y/N) YES, NA INITIALS SC 10:05, REVIEWED BY: VD. EXAMINATION GENERAL EXAMINATION: PATIENT IS ALERT O X 3 AND COOPERATIVE. LEFT LEG IS WEAKER AT EXTENSION AND FLEXION. TENDERNESS AND CREPITUS OVER THE MEDIAL ASPECT OF THE RIGHT KNEE. MRI OF THE BILATERAL KNEES DONE ON 06/11/2018 SHOWS SEVERAL CHANGES OCCURRING IN BOTH KNEES SUCH SUBCHONDRAL EDEMA, TEARS OVER MENISCUS AND EFFUSION. 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 CHEYANNE LEON'S PAIN MANAGEMENT CASE. DUE TO THE KNEE PAIN, I WOULD LIKE TO MOVE FORWARD WITH A RIGHT KNEE INJECTION WITH STEROIDS. THE PATIENT WILL CONTINUE WITH MEDICATION MANAGEMENT OF TIZANIDINE AND HYDROCODONE TO HELP WITH PAIN RELIEF, WHICH I REFILLED AT TODAY'S VISIT. PATIENT REMINDED TO BRING ALL MEDICATIONS TO FUTURE APPOINTMENTS. URINE TOXICOLOGY DONE ON 05/17/2018 SHOWS CONCURRENT RESULTS. ANOTHER UTOX WILL BE PERFORMED TODAY. ISTOP ___#[id number] WAS REVIEWED. THE ORTHOPEDIC SURGEON AGREED WITH THE PLAN TO GO AHEAD WITH KNEE INJECTIONS. THE PATIENT WILL FOLLOW UP WITH NURSE PRACTITIONER AFTER INJECTION. INSTRUCTIONS WERE GIVEN, QUESTIONS WERE ANSWERED, PATIENT REPORTS UNDERSTANDING AND AGREES WITH THE PLAN. I, JARRED WHALEY, DOCUMENTED THE ABOVE INFORMATION ACTING A SCRIBE FOR DR. BARCENAS. I HAVE REVIEWED THE ABOVE DOCUMENT, WRITTEN BY JARRED GIL AND I VERIFY THAT IT IS ACCURATE.. OTHERS REFILL TIZANIDINE HCL TABLET, 2 MG, 1 TABLET NEEDED, ORALLY FOR SPASMS AND PAIN, BEFORE BEDTIME MAY REPEAT IN 4 HRS MDD2, 30 DAYS, 50, REFILLS 1 START HYDROCODONE-ACETAMINOPHEN TABLET, 7.5-325 MG, 1 TABLET NEEDED, ORALLY, EVERY 6 HRS MDD3, 30 DAYS, 90, REFILLS 0 NOTES: 12/21/18 KNEE INJECTION INFORMATION REVIEWED WITH PT. PT. VERBALIZED AN UNDERSTANDING. HANNAH MONTEIRO. PROCEDURE CODES FA211 ESTABILISHED PATIENT [facility] CHARGE G8427 CURRENT MEDS W/DOSAGES DOCUMENTED G8730 PAIN ASSESS POS TOOL F/U PLAN DOC DISPOSITION & COMMUNICATION FOLLOW UP 3 WEEKS (REASON: BOOK RIGHT KNEE INJECTION/AUTH WAS APPROVED. F/U WITH NURSE MONITORING AFTER) ELECTRONICALLY SIGNED BY TYRELL BARCENAS MD, ON 01/01/2019 AT 12:28 PM EDT DISCLAIMER : THIS IS A VISIT SUMMARY EXTRACTED FROM THE [employer] CHART. IT IS NOT A COPY OF THE [employer] PROGRESS NOTE. MTDD
== END ==
LOC: M PAIN 09:45
PROVIDERS: ATTEND Anesthesiology
DX: M25.561 Pain in right knee (principal); M25.562 Pain in left knee; G89.29 Other chronic pain; M94.261 Chondromalacia, right knee; M17.0 Bilateral primary osteoarthritis of knee; Z86.59 Personal history of other mental and behavioral disorders; I10 Essential (primary) hypertension; Z96.652 Presence of left artificial knee joint; Z87.891 Personal history of nicotine dependence; Z88.0 Allergy status to penicillin; Z88.3 Allergy status to other anti-infective agents; Z88.4 Allergy status to anesthetic agent; Z88.6 Allergy status to analgesic agent; E66.01 Morbid (severe) obesity due to excess calories; Z68.43 Body mass index [BMI] 50.0-59.9, adult; Z79.899 Other long term (current) drug therapy

== ENCOUNTER → 2019-02-06 | Outpatient (CLI) | payer OTHER ==
[~2019-02-06] MED LIST changes: +BUPIVACAINE HCL 0.25% 30 ML VIAL As Ordered ONE; +ISOVUE-M 300 61% 15ML VIAL (Q9967) As Ordered ONE; +TRIAMCINOLONE ACETONIDE SUSP 40 MG/ML VIAL (J3301) As Ordered ONE; +diazePAM 5 MG TAB As Ordered ONE; +diphenhydrAMINE 25 MG CAP As Ordered ONE; +oxyCODONE 5MG TAB As Ordered ONE
--- NOTE | 2019-02-06 13:37 | REP ---
C-ARM VIEWS RIGHT KNEE: Four C-arm views right knee performed during injection by Dr. Corrales. Needle is seen overlying the suprapatellar region. Contrast is injected. 10 seconds fluoroscopy time utilized. Electronically Signed by Sigifredo Garcia MD 02/06/2019 03:21 P
--- NOTE | 2019-02-18 | ECWPNPC ---
PATIENT NAME: ALEXEI BARROS : 1970 GENDER: FEMALE VISIT DATE: 02/06/2019 DISCHARGE DATE: 02/06/19 1324 VISIT LOCKED DATE TIME: PHYSICIAN: TYRELL BARCENAS MD RESOURCE: TYRELL BARCENAS MD REASON FOR APPOINTMENT 1. RIGHT KNEE INJECTION HISTORY OF PRESENT ILLNESS HISTORY OF PRESENT ILLNESS: PAIN THE PATIENT DESCRIBES THE PAIN... FALL RISK SCREENING: SCREENING :NO FALLS REPORTED IN THE LAST YEAR CURRENT MEDICATIONS TAKING TIZANIDINE HCL 2 MG TABLET 1 TABLET NEEDED ORALLY FOR SPASMS AND PAIN BEFORE BEDTIME MAY REPEAT IN 4 HRS MDD2 TAKING METOPROLOL TARTRATE 50 MG TABLET ER 1 TABLET WITH FOOD ORALLY DAILY TAKING PROTONIX 20 MG TABLET DELAYED RELEASE 1 TABLET ORALLY ONCE A DAY TAKING LEXAPRO 20 MG TABLET 1 TABLET ORALLY ONCE A DAY TAKING SINGULAIR 5 MG TABLET CHEWABLE 1 TABLETS ORALLY ONCE A DAY TAKING HYDROCODONE-ACETAMINOPHEN 7.5-325 MG TABLET 1 TABLET NEEDED ORALLY EVERY 6 HRS MDD3, NOTES: 0830 DISCONTINUED VICODIN _ 7.5/325 MGS 1 TAB ORAL EVERY 4 HOURS NEEDED, NOTES: 0830 MEDICATION LIST REVIEWED AND RECONCILED WITH THE PATIENT PAST MEDICAL HISTORY ARTHRITIS BILATERAL KNEE ANXIETY AND DEPRESSION PULLED MUSCLE RIGHT LOWER LEG HIGH BLOOD PRESSURE / ELEVATED HEART RATE PTSD ALLERGIES IODINE: RASH - ALLERGY PENICILLIN (FOR ALLERGIES USE ONLY): ANAPHYLAXIS - ALLERGY DEMEROL: HEART RACED - ALLERGY LIDOCAINE: SEVERE HEART RACING FOR DAYS - ALLERGY SURGICAL HISTORY LEFT KNEE REPLACEMENT 07/24/18 FAMILY HISTORY FATHER: , DIAGNOSED WITH DIABETES, OTHER SPECIFIED CONDITIONS INFLUENCING HEALTH STATUS MOTHER: , OTHER MALIGNANT NEOPLASM OF UNSPECIFIED SITE SIBLINGS: ALIVE SON(S): ALIVE DAUGHTER(S): ALIVE 2 SON(S) , 4 DAUGHTER(S) . FATHER- ALCOHOLISMMOM-LUNG CASISTER HAS MS1 DAUGHTER HAS AUTO IMMUNE DISORDERDAUGHTER IS A CARRIER OF SANIYA'S DIEASE. SOCIAL HISTORY GENERAL: TOBACCO USE ARE YOU A:FORMER SMOKER 21 YEARS AGO IMMUNIZATION PROGRAM DO YOU FEEL SAFE IN YOUR ENVIRONMENT? 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 OTHERS AT HOME: DO YOU FEEL SAFE IN YOUR ENVIRONMENT? 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 EDUCATION LEVEL OF EDUCATION:FINISHED COLLEGE DIET: DISABLED. LANGUAGE LANGUAGES SPOKEN:ARABIC PRIMARY LANGUQGE URUGUAYAN RECREATIONAL DRUG USE DRUG USE?NO EXERCISE: BIKES. LEARNING BARRIERS / SPECIAL NEEDS BARRIERS TO LEARNING?NO HEARING IMPAIRED?NO VISION IMPAIRED?YES COGNITIVELY IMPAIRED?NO :CORRECTIVE LENSES READINESS TO LEARN?YES LEARNING PREFERENCES?YES :TAPES/VIDEOS, DEMONSTRATION/VERBAL INSTRUCTION LEARNING CAPABILITIES PRESENT?YES EMOTIONAL BARRIERS?NO SPECIAL DEVICES?NO SHIRT MAKER NEEDED?NO PAIN CLINIC PFS, CLERGY, PUBLIC HEALTH REFERRALS PFS REFERRAL NEEDED?NO CLERGY REFERRAL NEEDED?NO PUBLIC HEALTH REFERRAL NEEDED?NO WAS THE PROVIDER NOTIFIED OF ANY PERTINENT INFO? N/A HAS THE PATIENT BEEN EDUCATED REGARDING HIS/HER PLAN OF CARE?YES HAS THE PATIENT BEEN EDUCATED REGARDING PAIN, THE RISK FOR PAIN, THE IMPORTANCE OF EFFECTIVE PAIN MANAGEMENT, AND THE PAIN ASSESSMENT PROCESS?YES LATEX QUESTIONNAIRE LATEX ALLERGY : HAVE YOU EVER DEVELOPED ANY TYPE OF REACTION AFTER HANDLING LATEX PRODUCTS SUCH RUBBER GLOVES, CONDOMS, DIAPHRAGMS, BALLOONS, SOCKS, OR UNDERWEAR?NO LATEX ALLERGY : HAVE YOU EVER DEVELOPED ANY TYPE OF REACTION DURING OR AFTER DENTAL APPOINTMENT, VAGINAL/RECTAL EXAMINATION, SURGICAL PROCEDURE, OR ANY OTHER EXPOSURE?NO LATEX RISK : HAVE YOU EVER HAD ANY DIFFICULTY BREATHING OR HIVES AFTER EATING OR HANDLING ANY FRUITS, OR VEGETABLES; SUCH KIWI, BANANAS, STONE FRUITS, OR CHESTNUTSNO LATEX RISK : DO YOU HAVE A PREVIOUS PERSONAL HISTORY OF MORE THAN NINE SURGERIES, SPINA BIFIDA, OR REPEATED CATHERIZATIONS? NO LATEX RISK : ARE YOU FREQUENTLY EXPOSED TO LATEX PRODUCTS IN YOUR OCCUPATION?NO DATE ASKED : 02/06/2019 CAFFEINE CAFFEINE USE?NO ADVANCE DIRECTIVE ADVANCE DIRECTIVE DISCUSSED WITH PATIENT:YES PATIENT DECLINED HCP INFORMATION. NONDENOMINATIONAL NONDENOMINATIONAL NON DEMONIATIONAL MARITAL STATUS: . ALCOHOL SCREENING DID YOU HAVE A DRINK CONTAINING ALCOHOL IN THE PAST YEAR?NO POINTS0 INTERPRETATIONNEGATIVE OCCUPATION: DO YOU FEEL SAFE IN YOUR ENVIRONMENT? YES. 05/17/18 REVIEWED WITH PT. AD. HOSPITALIZATION/MAJOR DIAGNOSTIC PROCEDURE CHILDBIRTH X 6 SURGERY RELATED 07/24/18 REVIEW OF SYSTEMS REVIEWED BY: PROVIDER: . CONSTITUTIONAL: ANY CHANGE IN YOUR MEDICAL CONDITION? NO . CHILLS NO . FEVER NO . INFECTION: DO YOU HAVE NEW INFECTIONS? NO . DO YOU HAVE HISTORY OF MRSA? NO . MUSCULOSKELETAL: ANY NEW PATTERNS OF PAIN OR NUMBNESS? NO . GASTROENTEROLOGY: ANY NEW CHANGE IN BOWEL CONTROL? NO . GENITOURINARY: ANY NEW CHANGE IN BLADDER CONTROL? NO . IS THERE A CHANCE YOU COULD BE ? NO . HEMATOLOGY/LYMPH: DO YOU TAKE ANY BLOOD THINNERS? (FOR EXAMPLE- COUMADIN, PLAVIX, AGGRENOX, PLATEL, PRADAXA, OR XARELTO) NO . WHEN WAS YOUR LAST DOSE? DATE: TIME: . NEUROLOGY: HAVE YOU FALLEN IN THE PAST 12 MONTHS? NO . ANY NEW EXTREMITY NUMBNESS OR WEAKNESS? NO . CARDIOLOGY: DO YOU HAVE A PACEMAKER OR DEFIBRILLATOR? NO . RESPIRATORY: HAVE YOU BEEN SICK IN THE PAST WEEK? NO . FEVER NO . FLU LIKE SYMPTOMS? NO . COUGH NO . INTEGUMENTARY: DO YOU HAVE ANY RASHES OR OPEN SORES? NO . ALLERGIC/IMMUNO: ARE YOU ALLERGIC TO IV DYE? NO . ANY NEW ALLERGIES? NO . PSYCHIATRIC: DO YOU HAVE THOUGHTS OF HURTING YOURSELF OR SOMEONE ELSE? NO . ARE YOU ABUSED, NEGLECTED, OR IN AN UNSAFE ENVIRONMENT? NO . ENDOCRINOLOGY: ARE YOU DIABETIC? NO . OTHER: DO YOU NEED ANY PRESCRIPTIONS? NO . IF YES, PLEASE LIST: ____ . ANY NEW PROBLEMS WITH YOUR MEDICATIONS? NO . WHEN DID YOU LAST EAT? ____02/05/19 . WHEN DID YOU LAST DRINK? ____829 . WHAT DID YOU LAST DRINK? ____WATER . NAME OF PERSON DRIVING YOU HOME? ____LASHAWN CROWDERVALDEMAR . DO YOU HAVE ANY OTHER QUESTIONS OR CONCERNS NO . VITAL SIGNS WT 242.4 LBS, HT 55 IN, BMI 56.33 INDEX, BP 145/82 MM HG, HR 69 /MIN, RR 18 /MIN, TEMP 97.8 F, OXYGEN SAT % 99%, SAFE IN ENV? (Y/N) YES, NA INITIALS GA 10:38, REVIEWED BY: KALLIE. ASSESSMENTS OSTEOARTHRITIS OF RIGHT KNEE, UNSPECIFIED OSTEOARTHRITIS TYPE - M17.11 (PRIMARY) PAIN IN RIGHT KNEE - M25.561 TREATMENT PAIN IN RIGHT KNEE [facility] FLUORO GUIDANCE (PAIN)[id number] PROCEDURES PRE-PROCEDURE DIAGNOSIS: RIGHT KNEE OSTEOARTHRITISPOST-PROCEDURE DIAGNOSIS: RIGHT KNEE OSTEOARTHRITISPROCEDURE: INJECTION OF STEROIDS AT THE RIGHT KNEE WITH FLUOROSCOPIC GUIDANCESURGEON: TYRELL BARCENAS MDANESTHESIA: LOCALCOMPLICATIONS: NONEPRE-PROCEDURE NOTE: THE PATIENT IS SUFFERING OF SEVERE RIGHT KNEE PAIN. THE PATIENT HAS BEEN USING MULTIPLE MEDICATIONS TO CONTROL THIS PAIN. I HAVE DISCUSSED ALTERNATIVES WITH HER. THE PATIENT INDICATES THAT SHE CANNOT FUNCTION WITH THIS PAIN. AFTER DISCUSSING ALTERNATIVES SHE WANTS TO MOVE FORWARD WITH A RIGHT KNEE INJECTION OF STEROIDS. I WENT THROUGH THE RISKS ALTERNATIVES AND BENEFITS ASSOCIATED WITH THIS PROCEDURE AND THE PATIENT EXPRESSED THAT SHE WOULD LIKE TO PROCEED. DUE TO THE PATIENT BODY HABITUS AND FOR CERTAINTY THE PROCEDURE WAS DONE UNDER FLUOROSCOPIC GUIDANCE. PROCEDURE NOTE: THE PATIENT WAS TAKEN TO THE PROCEDURE ROOM AND PLACED IN THE SUPINE POSITION. THE RIGHT KNEE WAS CLEANED WITH BETHADINE SOLUTION AND DRAPED ASEPTICALLY. THE PROCEDURE WAS DONE WITH FLUOROSCOPIC GUIDANCE. ENTRY POINT WAS SELECTED AT THE SUPERIOR AND LATERAL MARGIN OF RIGHT KNEE. UNDER FLUOROSCOPIC GUIDANCE A 22 GAUGE SPINAL NEEDLE WAS ADVANCE SMOOTHLY UNTIL THE LATERAL THIRD OF THE KNEE JOINT WAS REACHED SEEN WITH AN AP VIEW. AFTER PROPER POSITION OF THE NEEDLE WAS REACHED ISOVUE DYE 30% .25CC WAS INJECTED SLOWLY SHOWING ADEQUATE SPREAD OF THE DYE OVER THE RESPECTIVE KNEE JOINT. THEN A SOLUTION OF 4 CC OF BUPIVACAINE 0.125% AND KENALOG 20 MG WAS INJECTED IN EACH JOINT. INJECTION WAS DONE SMOOTHLY AND WITHOUT RESISTANCE. THERE WAS NO EVIDENCE OF PARESTHESIA OR BLOOD. FLUOROSCOPY TIME WAS 10 SECONDS. THE PATIENT WAS SEND TO THE RECOVERY ROOM FOR OBSERVATION. POST-PROCEDURE NOTE: I DISCUSSED ALTERNATIVES WITH THE PATIENT. I WILL SEE HER IN A FOLLOW UP IN THE NEXT FEW WEEKS. THERE WERE NO COMPLICATIONS DURING THE PROCEDURE. INSTRUCTIONS WERE GIVEN, QUESTIONS WERE ANSWERED AND THE PATIENT REPORTS UNDERSTANDING. I, IRENE HALE, DOCUMENTED THE ABOVE INFORMATION ACTING A SCRIBE FOR DR. BARCENAS. I HAVE REVIEWED THE ABOVE DOCUMENT, WRITTEN BY IRENE HALE SCRIBAraceli AND I VERIFY THAT IT IS ACCURATE. PROCEDURE CODES 54322 DRAIN/INJ JOINT/BURSA W/O US, MODIFIERS: RT 6045F RADXPS IN END [id number] PXD [id number] NEEDLE LOCALIZATION BY XRAY, MODIFIERS: 26 DISPOSITION & COMMUNICATION FOLLOW UP 3 WEEKS ELECTRONICALLY SIGNED BY TYRELL BARCENAS MD, MD ON 02/17/2019 AT 12:06 PM EDT DISCLAIMER : THIS IS A VISIT SUMMARY EXTRACTED FROM THE [employer] CHART. IT IS NOT A COPY OF THE [employer] PROGRESS NOTE. MTDD
== END ==
LOC: M PAIN 10:30
PROVIDERS: ATTEND Anesthesiology
DX: M17.11 Unilateral primary osteoarthritis, right knee (principal); M25.561 Pain in right knee; F41.9 Anxiety disorder, unspecified; F32.9 Major depressive disorder, single episode, unspecified; F43.10 Post-traumatic stress disorder, unspecified; R03.0 Elevated blood-pressure reading, without diagnosis of hypertension; Z96.652 Presence of left artificial knee joint; Z87.891 Personal history of nicotine dependence; Z79.891 Long term (current) use of opiate analgesic; Z79.899 Other long term (current) drug therapy; Z88.0 Allergy status to penicillin; Z88.4 Allergy status to anesthetic agent; Z88.8 Allergy status to other drugs, medicaments and biological substances
CPT/HCPCS: 20610; 77002; J3301; Q9967

== ENCOUNTER → 2019-04-05 | Outpatient (CLI) | payer OTHER ==
[~2019-04-05] MED LIST changes: -BUPIVACAINE HCL 0.25% 30 ML VIAL As Ordered ONE; -ISOVUE-M 300 61% 15ML VIAL (Q9967) As Ordered ONE; -TRIAMCINOLONE ACETONIDE SUSP 40 MG/ML VIAL (J3301) As Ordered ONE; -diazePAM 5 MG TAB As Ordered ONE; -diphenhydrAMINE 25 MG CAP As Ordered ONE; -oxyCODONE 5MG TAB As Ordered ONE
--- NOTE | 2019-04-09 02:59 | ECWPNPC ---
PATIENT NAME: ALEXEI BARROS : 1970 GENDER: FEMALE VISIT DATE: 04/05/2019 DISCHARGE DATE: 04/05/19 1503 VISIT LOCKED DATE TIME: PHYSICIAN: KEVIN KOTHARI RESOURCE: KEVIN KOTHARI REASON FOR APPOINTMENT 1. POST KNEE INJ HISTORY OF PRESENT ILLNESS HISTORY OF PRESENT ILLNESS: PAIN THE PATIENT DESCRIBES THE PAIN... 49-YEAR-OLD FEMALE IN FOR POST INJECTION FOLLOW-UP. SHE FEELS THE PROCEDURE WAS INEFFECTIVE. SHE RATES HER PAIN CURRENTLY AT A 5 OUT OF 10 AND DESCRIBES IT ACHING, STABBING, AND SORE. SHE DOES FEELS THE MEDICATIONS ARE HELPFUL AND DENIES MED SIDE EFFECTS THIS TIME. FALL RISK SCREENING: SCREENING :NO FALLS REPORTED IN THE LAST YEAR CURRENT MEDICATIONS TAKING TIZANIDINE HCL 2 MG TABLET 1 TABLET NEEDED ORALLY FOR SPASMS AND PAIN BEFORE BEDTIME MAY REPEAT IN 4 HRS MDD2 TAKING METOPROLOL TARTRATE 50 MG TABLET ER 1 TABLET WITH FOOD ORALLY DAILY TAKING PROTONIX 20 MG TABLET DELAYED RELEASE 1 TABLET ORALLY ONCE A DAY, NOTES: ONLY NEEDS TAKING LEXAPRO 20 MG TABLET 1 TABLET ORALLY ONCE A DAY TAKING SINGULAIR 5 MG TABLET CHEWABLE 1 TABLETS ORALLY ONCE A DAY TAKING HYDROCODONE-ACETAMINOPHEN 7.5-325 MG TABLET 1 TABLET NEEDED ORALLY EVERY 6 HRS MDD3, NOTES: 0830 TAKING WELLBUTRIN 100 MG TABLET ORALLY NOT-TAKING BUSPIRONE HCL MEDICATION LIST REVIEWED AND RECONCILED WITH THE PATIENT PAST MEDICAL HISTORY ARTHRITIS BILATERAL KNEE ANXIETY AND DEPRESSION PULLED MUSCLE RIGHT LOWER LEG HIGH BLOOD PRESSURE / ELEVATED HEART RATE PTSD ALLERGIES IODINE: RASH - ALLERGY PENICILLIN (FOR ALLERGIES USE ONLY): ANAPHYLAXIS - ALLERGY DEMEROL: HEART RACED - ALLERGY LIDOCAINE: SEVERE HEART RACING FOR DAYS - ALLERGY SURGICAL HISTORY LEFT KNEE REPLACEMENT 07/24/18 FAMILY HISTORY FATHER: , DIAGNOSED WITH DIABETES, OTHER SPECIFIED CONDITIONS INFLUENCING HEALTH STATUS MOTHER: , OTHER MALIGNANT NEOPLASM OF UNSPECIFIED SITE SIBLINGS: ALIVE SON(S): ALIVE DAUGHTER(S): ALIVE 2 SON(S) , 4 DAUGHTER(S) . FATHER- ALCOHOLISMMOM-LUNG CASISTER HAS MS1 DAUGHTER HAS AUTO IMMUNE DISORDERDAUGHTER IS A CARRIER OF SANIYA'S DIEASE. HOSPITALIZATION/MAJOR DIAGNOSTIC PROCEDURE CHILDBIRTH X 6 SURGERY RELATED 07/24/18 REVIEW OF SYSTEMS REVIEWED BY: PROVIDER: BINU KOTHARI GEAR MACHINE OPERATOR-C . CONSTITUTIONAL: ANY CHANGE IN YOUR MEDICAL CONDITION? NO . CHILLS NO . FEVER NO . INFECTION: DO YOU HAVE NEW INFECTIONS? NO . DO YOU HAVE HISTORY OF MRSA? NO . MUSCULOSKELETAL: ANY NEW PATTERNS OF PAIN OR NUMBNESS? NO . GASTROENTEROLOGY: ANY NEW CHANGE IN BOWEL CONTROL? NO . GENITOURINARY: ANY NEW CHANGE IN BLADDER CONTROL? NO . IS THERE A CHANCE YOU COULD BE ? NO . HEMATOLOGY/LYMPH: DO YOU TAKE ANY BLOOD THINNERS? (FOR EXAMPLE- COUMADIN, PLAVIX, AGGRENOX, PLATEL, PRADAXA, OR XARELTO) NO . WHEN WAS YOUR LAST DOSE? DATE: TIME: . NEUROLOGY: HAVE YOU FALLEN IN THE PAST 12 MONTHS? NO . ANY NEW EXTREMITY NUMBNESS OR WEAKNESS? NO . CARDIOLOGY: DO YOU HAVE A PACEMAKER OR DEFIBRILLATOR? NO . RESPIRATORY: HAVE YOU BEEN SICK IN THE PAST WEEK? NO . FEVER NO . FLU LIKE SYMPTOMS? NO . COUGH NO . INTEGUMENTARY: DO YOU HAVE ANY RASHES OR OPEN SORES? NO . ALLERGIC/IMMUNO: ARE YOU ALLERGIC TO IV DYE? NO . ANY NEW ALLERGIES? NO . PSYCHIATRIC: DO YOU HAVE THOUGHTS OF HURTING YOURSELF OR SOMEONE ELSE? NO . ARE YOU ABUSED, NEGLECTED, OR IN AN UNSAFE ENVIRONMENT? NO . ENDOCRINOLOGY: ARE YOU DIABETIC? NO . OTHER: DO YOU NEED ANY PRESCRIPTIONS? TIZANDINE AND VICODIN . IF YES, PLEASE LIST: ____ . ANY NEW PROBLEMS WITH YOUR MEDICATIONS? NO . WHEN DID YOU LAST EAT? ____ . WHEN DID YOU LAST DRINK? ____ . WHAT DID YOU LAST DRINK? ____ . NAME OF PERSON DRIVING YOU HOME? ____ . DO YOU HAVE ANY OTHER QUESTIONS OR CONCERNS NO . VITAL SIGNS WT 235.0 LBS, HT 55 IN, BMI 54.61 INDEX, BP 141/68 MM HG, HR 71 /MIN, RR 18 /MIN, TEMP 96.0 F, OXYGEN SAT % 99%, NA INITIALS AW 1447. EXAMINATION GENERAL EXAMINATION: GENERALNO ACUTE DISTRESS, WELL NOURISHED AND HYDRATED. PSYCHAPPROPRIATE MOOD AND AFFECT . LUNGS:CLEAR TO AUSCULTATION BILATERALLY, NO WHEEZES, RHONCHI, RALES. HEART:NO MURMURS, REGULAR RATE AND RHYTHM. ASSESSMENTS PAIN IN RIGHT KNEE - M25.561 (PRIMARY) TREATMENT PAIN IN RIGHT KNEE REFILL TIZANIDINE HCL TABLET, 4 MG, 1 TABLET NEEDED, ORALLY, BEFORE BEDTIME, 30 DAYS, 30, REFILLS 1 REFILL HYDROCODONE-ACETAMINOPHEN TABLET, 7.5-325 MG, 1 TABLET NEEDED, ORALLY, EVERY 6 HRS MDD3, 30 DAYS, 90, NOTES: 0830 CLINICAL NOTES: 49-YEAR-OLD FEMALE IN FOR POST RIGHT KNEE INJECTION FOLLOW-UP. GIVEN PRESENTING SYMPTOMS AND RESULTS OF PHYSICAL EXAMINATION RECOMMENDED CONTINUATION OF CURRENT MEDICATION REGIMEN WITH FOLLOW-UP IN 2 MONTHS. PATIENT HAS EXPRESSED UNDERSTANDING OF AND WAS IN AGREEMENT WITH TREATMENT PLAN. GIVEN TIME TO ASK QUESTIONS AND EXPRESS CONCERNS., ISTOP REGISTRY REVIEWED AND DEMONSTRATES COMPLLIANCE. (REF # [id number] ) BRINGS IN MEDICATIONS WHICH IS APPROPRIATE FOR WHAT WAS DISPENSED. RECENT URINE TOXICOLOGY REVIEWED. NO UNAUTHORIZED MEDICATIONS. NO ILLICIT SUBSTANCES AND PRESCRIBED MEDICATIONS WERE PRESENT. PROCEDURE CODES FA211 ESTABILISHED PATIENT [facility] CHARGE DISPOSITION & COMMUNICATION FOLLOW UP 2 MONTHS (REASON: KNEE PAIN) ELECTRONICALLY SIGNED BY BLAINE GRANGER ON 04/08/2019 AT 09:13 AM EST DISCLAIMER : THIS IS A VISIT SUMMARY EXTRACTED FROM THE [email or web address] CHART. IT IS NOT A COPY OF THE [employer] PROGRESS NOTE. LOWELL
== END ==
LOC: M PAIN 14:45
PROVIDERS: ATTEND Family Medicine
DX: M25.561 Pain in right knee (principal)

== ENCOUNTER → 2019-08-13 | Outpatient (CLI) | payer OTHER ==
--- NOTE | 2019-08-14 23:10 | ECWPNPC ---
PATIENT NAME: ALEXEI BARROS : 1970 GENDER: FEMALE VISIT DATE: 08/13/2019 DISCHARGE DATE: 08/13/19 1110 VISIT LOCKED DATE TIME: PHYSICIAN: KEVIN KOTHARI RESOURCE: KEVIN KOTHARI REASON FOR APPOINTMENT 1. MEDICATION-PATIENT RUNNING 5-7 MINUTES LATE HISTORY OF PRESENT ILLNESS HISTORY OF PRESENT ILLNESS: PAIN THE PATIENT DESCRIBES THE PAINDURING THE LAST MONTH SEVERITY - PAIN SCORE OF5/10 LOCATIONS LEFT KNEE QUALITYACHING , BURNING, SHARP, STABBING, TENDER, SORE DURATIONCONTINUOUS, CONSTANT, ALL DAY PAIN IS INCREASED BY:ACTIVITIES, PROLONGED STANDING PAIN IS DECREASED BY: LAY DOWN AND STRAIGHTEN KNEE OUT 49-YEAR-OLD FEMALE IN FOR CHRONIC PAIN FOLLOW-UP. SHE RATES HER PAIN CURRENTLY AT A 5 OUT OF 10 AND DESCRIBES IT ACHING, BURNING, SHARP, STABBING, TENDER, AND SORE. SHE FEELS MEDICATIONS ARE WORKING WELL AND DENIES MED SIDE EFFECTS AT THIS TIME. SHE WOULD LIKE TO DISCUSS REPEAT INJECTIONS. FALL RISK SCREENING: SCREENING :NO FALLS REPORTED IN THE LAST YEAR CURRENT MEDICATIONS TAKING METOPROLOL TARTRATE 50 MG TABLET ER 1 TABLET WITH FOOD ORALLY DAILY TAKING PROTONIX 20 MG TABLET DELAYED RELEASE 1 TABLET ORALLY ONCE A DAY, NOTES: ONLY NEEDS TAKING LEXAPRO 20 MG TABLET 1 TABLET ORALLY ONCE A DAY TAKING SINGULAIR 5 MG TABLET CHEWABLE 1 TABLETS ORALLY ONCE A DAY TAKING TIZANIDINE HCL 4 MG TABLET 1 TABLET NEEDED ORALLY BEFORE BEDTIME TAKING NORCO 7.5-325 MG TABLET 1 TABLET NEEDED ORALLY Q8H PRN MDD3 TAKING WELLBUTRIN SR 150 MG TABLET EXTENDED RELEASE 12 HOUR 1 TABLET IN THE MORNING ORALLY BID NOT-TAKING WELLBUTRIN 100 MG TABLET ORALLY , NOTES: DOSAGE CHANGE NOT-TAKING HYDROCODONE-ACETAMINOPHEN 7.5-325 MG TABLET 1 TABLET NEEDED ORALLY EVERY 6 HRS MDD3, NOTES: 0830 DUPLICATE NOT-TAKING BUSPIRONE HCL MEDICATION LIST REVIEWED AND RECONCILED WITH THE PATIENT PAST MEDICAL HISTORY ARTHRITIS BILATERAL KNEE ANXIETY AND DEPRESSION PULLED MUSCLE RIGHT LOWER LEG HIGH BLOOD PRESSURE / ELEVATED HEART RATE PTSD ALLERGIES IODINE: RASH - ALLERGY PENICILLIN (FOR ALLERGIES USE ONLY): ANAPHYLAXIS - ALLERGY DEMEROL: HEART RACED - ALLERGY LIDOCAINE: SEVERE HEART RACING FOR DAYS - ALLERGY SURGICAL HISTORY LEFT KNEE REPLACEMENT 07/24/18 FAMILY HISTORY FATHER: , DIAGNOSED WITH DIABETES, OTHER SPECIFIED CONDITIONS INFLUENCING HEALTH STATUS MOTHER: , OTHER MALIGNANT NEOPLASM OF UNSPECIFIED SITE SIBLINGS: ALIVE SON(S): ALIVE DAUGHTER(S): ALIVE 2 SON(S) , 4 DAUGHTER(S) . FATHER- ALCOHOLISMMOM-LUNG CASISTER HAS MS1 DAUGHTER HAS AUTO IMMUNE DISORDERDAUGHTER IS A CARRIER OF SANIYA'S DIEASE. SOCIAL HISTORY GENERAL: TOBACCO USE ARE YOU A:FORMER SMOKER 21 YEARS AGO IMMUNIZATION PROGRAM DO YOU FEEL SAFE IN YOUR ENVIRONMENT? 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 OTHERS AT HOME: DO YOU FEEL SAFE IN YOUR ENVIRONMENT? 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 EDUCATION LEVEL OF EDUCATION:FINISHED COLLEGE DIET: DISABLED. LANGUAGE LANGUAGES SPOKEN:TAMAZIGHT PRIMARY LANGUQGE FILIPINO RECREATIONAL DRUG USE DRUG USE?NO EXERCISE: BIKES. LEARNING BARRIERS / SPECIAL NEEDS BARRIERS TO LEARNING?NO HEARING IMPAIRED?NO VISION IMPAIRED?YES COGNITIVELY IMPAIRED?NO :CORRECTIVE LENSES READINESS TO LEARN?YES LEARNING PREFERENCES?YES :TAPES/VIDEOS, DEMONSTRATION/VERBAL INSTRUCTION LEARNING CAPABILITIES PRESENT?YES EMOTIONAL BARRIERS?NO SPECIAL DEVICES?NO STRUCTURAL BIOLOGIST NEEDED?NO PAIN CLINIC PFS, CLERGY, PUBLIC HEALTH REFERRALS PFS REFERRAL NEEDED?NO CLERGY REFERRAL NEEDED?NO PUBLIC HEALTH REFERRAL NEEDED?NO WAS THE PROVIDER NOTIFIED OF ANY PERTINENT INFO? N/A HAS THE PATIENT BEEN EDUCATED REGARDING HIS/HER PLAN OF CARE?YES HAS THE PATIENT BEEN EDUCATED REGARDING PAIN, THE RISK FOR PAIN, THE IMPORTANCE OF EFFECTIVE PAIN MANAGEMENT, AND THE PAIN ASSESSMENT PROCESS?YES LATEX QUESTIONNAIRE LATEX ALLERGY : HAVE YOU EVER DEVELOPED ANY TYPE OF REACTION AFTER HANDLING LATEX PRODUCTS SUCH RUBBER GLOVES, CONDOMS, DIAPHRAGMS, BALLOONS, SOCKS, OR UNDERWEAR?NO LATEX ALLERGY : HAVE YOU EVER DEVELOPED ANY TYPE OF REACTION DURING OR AFTER DENTAL APPOINTMENT, VAGINAL/RECTAL EXAMINATION, SURGICAL PROCEDURE, OR ANY OTHER EXPOSURE?NO DATE ASKED : 02/06/2019 LATEX RISK : HAVE YOU EVER HAD ANY DIFFICULTY BREATHING OR HIVES AFTER EATING OR HANDLING ANY FRUITS, OR VEGETABLES; SUCH KIWI, BANANAS, STONE FRUITS, OR CHESTNUTSNO LATEX RISK : DO YOU HAVE A PREVIOUS PERSONAL HISTORY OF MORE THAN NINE SURGERIES, SPINA BIFIDA, OR REPEATED CATHERIZATIONS? NO LATEX RISK : ARE YOU FREQUENTLY EXPOSED TO LATEX PRODUCTS IN YOUR OCCUPATION?NO CAFFEINE CAFFEINE USE?NO ADVANCE DIRECTIVE ADVANCE DIRECTIVE DISCUSSED WITH PATIENT:YES PATIENT DECLINED HCP INFORMATION. CHEONDOISM CHEONDOISM NON DEMONIATIONAL MARITAL STATUS: . ALCOHOL SCREENING DID YOU HAVE A DRINK CONTAINING ALCOHOL IN THE PAST YEAR?NO POINTS0 INTERPRETATIONNEGATIVE OCCUPATION: DO YOU FEEL SAFE IN YOUR ENVIRONMENT? YES. 05/17/18 REVIEWED WITH PT. AD. HOSPITALIZATION/MAJOR DIAGNOSTIC PROCEDURE CHILDBIRTH X 6 SURGERY RELATED 07/24/18 REVIEW OF SYSTEMS REVIEWED BY: PROVIDER: BINU VALLADARES-Isai . CONSTITUTIONAL: ANY CHANGE IN YOUR MEDICAL CONDITION? NO . CHILLS NO . FEVER NO . INFECTION: DO YOU HAVE NEW INFECTIONS? NO . DO YOU HAVE HISTORY OF MRSA? NO . MUSCULOSKELETAL: ANY NEW PATTERNS OF PAIN OR NUMBNESS? YES, BOTH SHOULDERS FEELS TIRED WITH MOST ACTIVITIES . GASTROENTEROLOGY: ANY NEW CHANGE IN BOWEL CONTROL? NO . GENITOURINARY: ANY NEW CHANGE IN BLADDER CONTROL? NO . IS THERE A CHANCE YOU COULD BE ? NO . HEMATOLOGY/LYMPH: DO YOU TAKE ANY BLOOD THINNERS? (FOR EXAMPLE- COUMADIN, PLAVIX, AGGRENOX, PLATEL, PRADAXA, OR XARELTO) NO . WHEN WAS YOUR LAST DOSE? DATE: TIME: . NEUROLOGY: HAVE YOU FALLEN IN THE PAST 12 MONTHS? NO . ANY NEW EXTREMITY NUMBNESS OR WEAKNESS? NO . CARDIOLOGY: DO YOU HAVE A PACEMAKER OR DEFIBRILLATOR? NO . RESPIRATORY: HAVE YOU BEEN SICK IN THE PAST WEEK? NO . FEVER NO . FLU LIKE SYMPTOMS? NO . COUGH NO . INTEGUMENTARY: DO YOU HAVE ANY RASHES OR OPEN SORES? NO . ALLERGIC/IMMUNO: ARE YOU ALLERGIC TO IV DYE? NO . ANY NEW ALLERGIES? NO . PSYCHIATRIC: DO YOU HAVE THOUGHTS OF HURTING YOURSELF OR SOMEONE ELSE? NO . ARE YOU ABUSED, NEGLECTED, OR IN AN UNSAFE ENVIRONMENT? NO . ENDOCRINOLOGY: ARE YOU DIABETIC? NO . OTHER: DO YOU NEED ANY PRESCRIPTIONS? YES, TIZANIDINE AND NORCO . IF YES, PLEASE LIST: ____ . ANY NEW PROBLEMS WITH YOUR MEDICATIONS? NO . WHEN DID YOU LAST EAT? ____ . WHEN DID YOU LAST DRINK? ____ . WHAT DID YOU LAST DRINK? ____ . NAME OF PERSON DRIVING YOU HOME? ____ . DO YOU HAVE ANY OTHER QUESTIONS OR CONCERNS NO . VITAL SIGNS WT 254.0 LBS, HT 55 IN, BMI 59.03 INDEX, BP 129/75 MM HG, HR 82 /MIN, RR 18 /MIN, TEMP 97.0 F, OXYGEN SAT % 98%, NA INITIALS AW 1010. EXAMINATION GENERAL EXAMINATION: GENERALNO ACUTE DISTRESS, WELL NOURISHED AND HYDRATED. PSYCHAPPROPRIATE MOOD AND AFFECT . LUNGS:CLEAR TO AUSCULTATION BILATERALLY, NO WHEEZES, RHONCHI, RALES. HEART:NO MURMURS, REGULAR RATE AND RHYTHM. ASSESSMENTS PAIN IN LEFT KNEE - M25.562 (PRIMARY) CHRONIC USE OF OPIATE DRUG FOR THERAPEUTIC PURPOSE - Z79.891 TREATMENT PAIN IN LEFT KNEE REFILL TIZANIDINE HCL TABLET, 4 MG, 1 TABLET NEEDED, ORALLY, BEFORE BEDTIME, 30 DAYS, 30, REFILLS 1 REFILL NORCO TABLET, 7.5-325 MG, 1 TABLET NEEDED, ORALLY, Q8H PRN MDD3, 30 DAYS, 90, REFILLS 0 CLINICAL NOTES: 49-YEAR-OLD FEMALE IN FOR CHRONIC PAIN FOLLOW-UP. GIVEN PRESENTING SYMPTOMS AND RESULTS OF PHYSICAL EXAMINATION RECOMMENDED CONTINUATION OF CURRENT MEDICATION REGIMEN WITH FOLLOW-UP IN 3 MONTHS. THE IMPORTANCE OF THREE-MONTH FOLLOW-UP WAS DISCUSSED WITH PATIENT AND SHE WAS INFORMED THAT SHE WOULD NEED TO MAKE HER 3 MONTH FOLLOW-UPS IF NOT THIS MANAGER GOLF COULD NOT CONTINUE TO PRESCRIBE HER NARCOTICS. PATIENT HAS EXPRESSED UNDERSTANDING OF AND WAS IN AGREEMENT WITH TREATMENT PLAN. GIVEN TIME TO ASK QUESTIONS AND EXPRESS CONCERNS., [employer] REGISTRY REVIEWED AND DEMONSTRATES COMPLLIANCE. (REF # [id number] ) BRINGS IN MEDICATIONS WHICH IS APPROPRIATE FOR WHAT WAS DISPENSED. RECENT URINE TOXICOLOGY REVIEWED. NO UNAUTHORIZED MEDICATIONS. NO ILLICIT SUBSTANCES AND PRESCRIBED MEDICATIONS WERE PRESENT. PROCEDURE CODES FA211 ESTABILISHED PATIENT [facility] CHARGE DISPOSITION & COMMUNICATION FOLLOW UP 3 MONTHS (REASON: LEFT KNEE PAIN) ELECTRONICALLY SIGNED BY BLAINE GRANGER ON 08/14/2019 AT 09:16 AM EDT DISCLAIMER : THIS IS A VISIT SUMMARY EXTRACTED FROM THE [employer] CHART. IT IS NOT A COPY OF THE [employer] PROGRESS NOTE. LOWELL
== END ==
LOC: M PAIN 10:00
PROVIDERS: ATTEND Family Medicine
DX: M25.562 Pain in left knee (principal); G89.29 Other chronic pain; Z86.59 Personal history of other mental and behavioral disorders; I10 Essential (primary) hypertension; Z96.652 Presence of left artificial knee joint; Z87.891 Personal history of nicotine dependence; Z88.0 Allergy status to penicillin; Z88.3 Allergy status to other anti-infective agents; Z88.4 Allergy status to anesthetic agent; Z88.5 Allergy status to narcotic agent; E66.01 Morbid (severe) obesity due to excess calories; Z68.43 Body mass index [BMI] 50.0-59.9, adult; Z79.899 Other long term (current) drug therapy

== ENCOUNTER → 2019-09-26 | Outpatient (CLI) | payer OTHER ==
--- NOTE | 2019-09-27 23:10 | ECWPNPC ---
PATIENT NAME: ALEXEI BARROS : 1970 GENDER: FEMALE VISIT DATE: 09/26/2019 DISCHARGE DATE: 09/26/19 1343 VISIT LOCKED DATE TIME: PHYSICIAN: KEVIN KOTHARI RESOURCE: KEVIN KOTHARI REASON FOR APPOINTMENT 1. INCREASED PAIN HISTORY OF PRESENT ILLNESS HISTORY OF PRESENT ILLNESS: PAIN THE PATIENT DESCRIBES THE PAIN... 49-YEAR-OLD FEMALE IN WITH COMPLAINTS OF INCREASED RIGHT KNEE PAIN. SHE RATES HER PAIN CURRENTLY AT A 10 OUT OF 10 AND DESCRIBES IT ACHING, BURNING, AND STABBING. SHE DENIES HISTORY OF RECENT TRAUMA. FALL RISK SCREENING: SCREENING :NO FALLS REPORTED IN THE LAST YEAR CURRENT MEDICATIONS TAKING METOPROLOL TARTRATE 50 MG TABLET ER 1 TABLET WITH FOOD ORALLY DAILY TAKING PROTONIX 20 MG TABLET DELAYED RELEASE 1 TABLET ORALLY ONCE A DAY, NOTES: ONLY NEEDS TAKING LEXAPRO 10 MG TABLET 1 TABLET ORALLY ONCE A DAY TAKING SINGULAIR 10 MG TABLET 1 TABLETS ORALLY ONCE A DAY TAKING WELLBUTRIN SR 150 MG TABLET EXTENDED RELEASE 12 HOUR 1 TABLET IN THE MORNING ORALLY BID TAKING NORCO 7.5-325 MG TABLET 1 TABLET NEEDED ORALLY Q8H PRN MDD3 TAKING TIZANIDINE HCL 4 MG TABLET 1 TABLET NEEDED ORALLY BEFORE BEDTIME TAKING VYVANSE 20 MG CAPSULE 1 CAPSULE IN THE MORNING ORALLY ONCE A DAY NOT-TAKING WELLBUTRIN 100 MG TABLET ORALLY , NOTES: DOSAGE CHANGE NOT-TAKING HYDROCODONE-ACETAMINOPHEN 7.5-325 MG TABLET 1 TABLET NEEDED ORALLY EVERY 6 HRS MDD3, NOTES: 0830 DUPLICATE NOT-TAKING BUSPIRONE HCL MEDICATION LIST REVIEWED AND RECONCILED WITH THE PATIENT PAST MEDICAL HISTORY ARTHRITIS BILATERAL KNEE ANXIETY AND DEPRESSION PULLED MUSCLE RIGHT LOWER LEG HIGH BLOOD PRESSURE / ELEVATED HEART RATE PTSD ALLERGIES IODINE: RASH - ALLERGY PENICILLIN (FOR ALLERGIES USE ONLY): ANAPHYLAXIS - ALLERGY DEMEROL: HEART RACED - ALLERGY LIDOCAINE: SEVERE HEART RACING FOR DAYS - ALLERGY SURGICAL HISTORY LEFT KNEE REPLACEMENT 07/24/18 FAMILY HISTORY FATHER: , DIAGNOSED WITH DIABETES, OTHER SPECIFIED CONDITIONS INFLUENCING HEALTH STATUS MOTHER: , OTHER MALIGNANT NEOPLASM OF UNSPECIFIED SITE SIBLINGS: ALIVE SON(S): ALIVE DAUGHTER(S): ALIVE 2 SON(S) , 4 DAUGHTER(S) . FATHER- ALCOHOLISMMOM-LUNG CASISTER HAS MS1 DAUGHTER HAS AUTO IMMUNE DISORDERDAUGHTER IS A CARRIER OF SANIYA'S DIEASE. SOCIAL HISTORY GENERAL: TOBACCO USE ARE YOU A:FORMER SMOKER 21 YEARS AGO LATEX QUESTIONNAIRE LATEX ALLERGY : HAVE YOU EVER DEVELOPED ANY TYPE OF REACTION AFTER HANDLING LATEX PRODUCTS SUCH RUBBER GLOVES, CONDOMS, DIAPHRAGMS, BALLOONS, SOCKS, OR UNDERWEAR?NO LATEX ALLERGY : HAVE YOU EVER DEVELOPED ANY TYPE OF REACTION DURING OR AFTER DENTAL APPOINTMENT, VAGINAL/RECTAL EXAMINATION, SURGICAL PROCEDURE, OR ANY OTHER EXPOSURE?NO DATE ASKED : 02/06/2019 LATEX RISK : HAVE YOU EVER HAD ANY DIFFICULTY BREATHING OR HIVES AFTER EATING OR HANDLING ANY FRUITS, OR VEGETABLES; SUCH KIWI, BANANAS, STONE FRUITS, OR CHESTNUTSNO LATEX RISK : DO YOU HAVE A PREVIOUS PERSONAL HISTORY OF MORE THAN NINE SURGERIES, SPINA BIFIDA, OR REPEATED CATHERIZATIONS? NO LATEX RISK : ARE YOU FREQUENTLY EXPOSED TO LATEX PRODUCTS IN YOUR OCCUPATION?NO ALCOHOL SCREENING DID YOU HAVE A DRINK CONTAINING ALCOHOL IN THE PAST YEAR?NO POINTS0 INTERPRETATIONNEGATIVE RECREATIONAL DRUG USE DRUG USE?NO CAFFEINE CAFFEINE USE?NO YAZIDI YAZIDI NON DEMONIATIONAL LANGUAGE LANGUAGES SPOKEN:[employer] [facility] BENINESE EDUCATION LEVEL OF EDUCATION:FINISHED COLLEGE LEARNING BARRIERS / SPECIAL NEEDS BARRIERS TO LEARNING?NO HEARING IMPAIRED?NO VISION IMPAIRED?YES COGNITIVELY IMPAIRED?NO :CORRECTIVE LENSES READINESS TO LEARN?YES LEARNING PREFERENCES?YES :TAPES/VIDEOS, DEMONSTRATION/VERBAL INSTRUCTION LEARNING CAPABILITIES PRESENT?YES EMOTIONAL BARRIERS?NO SPECIAL DEVICES?NO SPECIAL FORCES SPECIALIST NEEDED?NO OCCUPATION: DO YOU FEEL SAFE IN YOUR ENVIRONMENT? YES. DIET: DISABLED. EXERCISE: BIKES. MARITAL STATUS: . OTHERS AT HOME: DO YOU FEEL SAFE IN YOUR ENVIRONMENT? 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 IMMUNIZATION PROGRAM DO YOU FEEL SAFE IN YOUR ENVIRONMENT? 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 NEW PATIENT PAIN DIARY TODAY'S VISIT 09/26/2019 PATIENT DESCRIBES PAIN :ACHING, BURNING, HAVE IT ALL THE TIME, STABBING FROM 0-10, WHAT LEVEL IS YOUR PAIN TODAY?10 PRECIPITATING FACTORS WAKES FROM SLEEP, CAN'T STRAIGHTEN IT OUT ALLEVIATING FACTORS ICE, PAIN CLINIC PFS, CLERGY, PUBLIC HEALTH REFERRALS PFS REFERRAL NEEDED?NO CLERGY REFERRAL NEEDED?NO PUBLIC HEALTH REFERRAL NEEDED?NO WAS THE PROVIDER NOTIFIED OF ANY PERTINENT INFO? N/A HAS THE PATIENT BEEN EDUCATED REGARDING HIS/HER PLAN OF CARE?YES HAS THE PATIENT BEEN EDUCATED REGARDING PAIN, THE RISK FOR PAIN, THE IMPORTANCE OF EFFECTIVE PAIN MANAGEMENT, AND THE PAIN ASSESSMENT PROCESS?YES ADVANCE DIRECTIVE ADVANCE DIRECTIVE DISCUSSED WITH PATIENT:YES PATIENT DECLINED HCP INFORMATION. HOSPITALIZATION/MAJOR DIAGNOSTIC PROCEDURE CHILDBIRTH X 6 SURGERY RELATED 07/24/18 REVIEW OF SYSTEMS REVIEWED BY: PROVIDER: BINU KOTHARI SUPERINTENDENT CEMETERY-Isai . CONSTITUTIONAL: ANY CHANGE IN YOUR MEDICAL CONDITION? NO . CHILLS NO . FEVER NO . INFECTION: DO YOU HAVE NEW INFECTIONS? NO . DO YOU HAVE HISTORY OF MRSA? NO . MUSCULOSKELETAL: ANY NEW PATTERNS OF PAIN OR NUMBNESS? YES PT REPORTS INCREASED PAIN IN RIGHT KNEE, HAPPENING OVER THE PAST 4-5 DAYS. NO PRECIPITATING EVENT. . GASTROENTEROLOGY: ANY NEW CHANGE IN BOWEL CONTROL? NO . GENITOURINARY: ANY NEW CHANGE IN BLADDER CONTROL? NO . IS THERE A CHANCE YOU COULD BE ? NO . HEMATOLOGY/LYMPH: DO YOU TAKE ANY BLOOD THINNERS? (FOR EXAMPLE- COUMADIN, PLAVIX, AGGRENOX, PLATEL, PRADAXA, OR XARELTO) NO . WHEN WAS YOUR LAST DOSE? DATE: TIME: . NEUROLOGY: HAVE YOU FALLEN IN THE PAST 12 MONTHS? NO . ANY NEW EXTREMITY NUMBNESS OR WEAKNESS? NO . CARDIOLOGY: DO YOU HAVE A PACEMAKER OR DEFIBRILLATOR? NO . RESPIRATORY: HAVE YOU BEEN SICK IN THE PAST WEEK? NO . FEVER NO . FLU LIKE SYMPTOMS? NO . COUGH NO . INTEGUMENTARY: DO YOU HAVE ANY RASHES OR OPEN SORES? NO . ALLERGIC/IMMUNO: ARE YOU ALLERGIC TO IV DYE? NO . ANY NEW ALLERGIES? NO . PSYCHIATRIC: DO YOU HAVE THOUGHTS OF HURTING YOURSELF OR SOMEONE ELSE? NO . ARE YOU ABUSED, NEGLECTED, OR IN AN UNSAFE ENVIRONMENT? NO . ENDOCRINOLOGY: ARE YOU DIABETIC? NO . OTHER: DO YOU NEED ANY PRESCRIPTIONS? NO . IF YES, PLEASE LIST: ____ . ANY NEW PROBLEMS WITH YOUR MEDICATIONS? NO . WHEN DID YOU LAST EAT? ____ . WHEN DID YOU LAST DRINK? ____ . WHAT DID YOU LAST DRINK? ____ . NAME OF PERSON DRIVING YOU HOME? ____ . DO YOU HAVE ANY OTHER QUESTIONS OR CONCERNS NO . VITAL SIGNS WT 254.0 LBS, HT 55 IN, BMI 59.03 INDEX, BP 141/77 MM HG, HR 84 /MIN, RR 18 /MIN, TEMP 97.0 F, OXYGEN SAT % 98%, NA INITIALS AW 1306. EXAMINATION GENERAL EXAMINATION: GENERALNO ACUTE DISTRESS, WELL NOURISHED AND HYDRATED. PSYCHAPPROPRIATE MOOD AND AFFECT . LUNGS:CLEAR TO AUSCULTATION BILATERALLY, NO WHEEZES, RHONCHI, RALES. HEART:NO MURMURS, REGULAR RATE AND RHYTHM. MUSCULOSKELETAL:INCREASED PAIN WITH FLEXION AND EXTENSION OF RIGHT KNEE, PATIENT ENDORSES EXQUISITE TENDERNESS TO MEDIAL ASPECT OF RIGHT KNEE SURROUNDING SKIN SHOWS NO ERYTHEMA, ECCHYMOSIS, INCREASED WARMTH, AND/OR SKIN ERUPTIONS NOTED. . ASSESSMENTS PAIN IN RIGHT KNEE - M25.561 (PRIMARY) TREATMENT PAIN IN RIGHT KNEE START MELOXICAM TABLET, 15 MG, 1 TABLET, ORALLY, ONCE A DAY, 30 DAY(S), 30 SMC MRI KNEE WITHOUT [id number] CLINICAL NOTES: 49-YEAR-OLD FEMALE IN WITH COMPLAINT OF INCREASED RIGHT KNEE PAIN. GIVEN PRESENTING SYMPTOMS AND RESULTS OF PHYSICAL EXAMINATION RECOMMENDED MRI OF THE RIGHT KNEE WITH FOLLOW-UP AFTER IMAGING. FURTHER RECOMMENDED MELOXICAM 15MG DAILY NEEDED FOR PAIN. PATIENT ENCOURAGED NOT TO TAKE OTHER NSAIDS WHILE ON MELOXICAM AND TO ALSO TAKE IT WITH FOOD. PATIENT HAS EXPRESSED UNDERSTANDING OF AND WAS IN AGREEMENT WITH TREATMENT PLAN. GIVEN TIME TO ASK QUESTIONS AND EXPRESS CONCERNS. , ISTOP REGISTRY REVIEWED AND DEMONSTRATES COMPLLIANCE. (REF # [id number] ) BRINGS IN MEDICATIONS WHICH IS APPROPRIATE FOR WHAT WAS DISPENSED. RECENT URINE TOXICOLOGY REVIEWED. NO UNAUTHORIZED MEDICATIONS. NO ILLICIT SUBSTANCES AND PRESCRIBED MEDICATIONS WERE PRESENT. PREVENTIVE MEDICINE PAIN CLINIC TEACHING: MEDICATIONS MEDICATION TEACHING FOR MELOXICAM PRINTED AND REVIEWED WITH PATIENT. . PROCEDURE CODES FA211 ESTABILISHED PATIENT [facility] CHARGE DISPOSITION & COMMUNICATION FOLLOW UP POST IMAGING (REASON: RIGHT KNEE MRI ) ELECTRONICALLY SIGNED BY BLAINE GRANGER ON 09/27/2019 AT 08:40 AM EDT DISCLAIMER : THIS IS A VISIT SUMMARY EXTRACTED FROM THE XL Video CHART. IT IS NOT A COPY OF THE [employer] Video PROGRESS NOTE. MTDD
== END ==
LOC: M PAIN 13:00
PROVIDERS: ATTEND Family Medicine
DX: M25.561 Pain in right knee (principal); Z86.59 Personal history of other mental and behavioral disorders; I10 Essential (primary) hypertension; Z96.652 Presence of left artificial knee joint; Z87.891 Personal history of nicotine dependence; Z88.0 Allergy status to penicillin; Z88.3 Allergy status to other anti-infective agents; Z88.4 Allergy status to anesthetic agent; Z88.5 Allergy status to narcotic agent; E66.01 Morbid (severe) obesity due to excess calories; Z68.43 Body mass index [BMI] 50.0-59.9, adult; Z79.899 Other long term (current) drug therapy

== ENCOUNTER → 2019-11-26 | Outpatient (CLI) | payer OTHER ==
--- NOTE | 2019-11-27 04:44 | REP ---
MRI RIGHT KNEE: TECHNIQUE: Axial proton density fat saturation, sagittal proton density T2 STIR, water excitation, coronal proton density, proton density fat saturation. COMPARISON: 06/11/2018 Once again, there are complex tears of the anterior and posterior horns of the medial meniscus. These have increased in severity compared to the prior study. There is again fraying noted of the central aspect of the posterior horn of the lateral meniscus, as seen on prior study. Cruciate and collateral ligaments are intact. Extensor mechanism is intact. There is moderate diffuse spurring again noted. There is moderate diffuse chondromalacia of the patella with some fissuring in the medial patellar facet, unchanged. There is mild subchondral cystic change centrally in the patella. There is moderate chondromalacia of the adjacent anterior intercondylar notch. Mild chondromalacia throughout the lateral compartment appears stable. Moderately severe diffuse chondromalacia along the medial femoral condyle and tibial plateau appears similar to the prior study with subchondral marrow edema again seen in the medial femoral condyle and tibial plateau. There is a mild joint effusion. The amount of joint fluid has mildly decreased since the prior study. A small amount of fluid is again seen extending into the medial popliteal fossa, as on prior study. IMPRESSION: Complex tear anterior and posterior horns medial meniscus appears to have increased in severity somewhat compared to the prior study of 06/11/2018. There is fraying again seen of the central aspect of the posterior horn of the lateral meniscus. Chondromalacia and areas of subchondral marrow edema appear stable. Small joint effusion appears to have mildly decreased since the prior study. Electronically Signed by Sigifredo Garcia MD 11/27/2019 11:09 P
== END ==
LOC: M RAD 16:00
PROVIDERS: ATTEND Family Medicine
DX: M94.261 Chondromalacia, right knee (principal); S83.231S Complex tear of medial meniscus, current injury, right knee, sequela; X58.XXXS Exposure to other specified factors, sequela; Y92.9 Unspecified place or not applicable

== ENCOUNTER → 2020-01-02 | Outpatient (POV) | payer OTHER | LOC: M PAIN 09:00 | PROVIDERS: ATTEND Family Medicine | DX: M25.569 Pain in unspecified knee (principal) ==

== ENCOUNTER → 2020-01-30 | Outpatient (CLI) | payer SELFPAY | LOC: M LABSMTC 14:10 | PROVIDERS: ATTEND Pediatrics | DX: Z20.828 Contact with and (suspected) exposure to other viral communicable diseases (principal) ==

== ENCOUNTER → 2020-02-20 | Outpatient (CLI) | payer OTHER ==
--- NOTE | 2020-02-21 12:57 | ECWPNPC ---
PATIENT NAME: ALEXEI BARROS : 1970 GENDER: FEMALE VISIT DATE: 02/20/2020 DISCHARGE DATE: 02/20/20 1422 VISIT LOCKED DATE TIME: PHYSICIAN: KEVIN KOTHARI RESOURCE: KEVIN KOTHARI REASON FOR APPOINTMENT 1. KRIS KNEES HISTORY OF PRESENT ILLNESS DEPRESSION SCREENING: PHQ-2 (2015 EDITION) LITTLE INTEREST OR PLEASURE IN DOING THINGS?NOT AT ALL FEELING DOWN, DEPRESSED, OR HOPELESS?NOT AT ALL TOTAL SCORE0 50-YEAR-OLD FEMALE IN FOR CHRONIC PAIN FOLLOW-UP. SHE RATES HER PAIN CURRENTLY AT A 5 OUT OF 10 AND DESCRIBES IT ACHING, BURNING, SHARP, STABBING, TENDER, THROBBING, AND SHOOTING. SHE FEELS THE MEDICATIONS ARE HELPFUL AND DENIES MED SIDE EFFECTS AT THIS TIME. SHE DOES ADMIT TO INCREASED PAIN WITH ACTIVITY. GENERAL: -. FALL RISK SCREENING: SCREENING :NO FALLS REPORTED IN THE LAST YEAR PAIN SCREENING: PATIENT HAS A COMPLAINT OF ACUTE OR CHRONIC PAIN :YES LOCATION OF PAIN:KNEES INTENSITY OF PAIN (SCALE OF 1 TO 10):5 WHAT DOES YOUR PAIN FEEL LIKE:ACHING, BURNING, SHARP, STABBING, TENDER, THROBBING, SHOOTING DURATION:INTERMITTENT PAIN IS INCREASED BY:ACTIVITIES PAIN IS DECREASED BY:USE OF PAIN MEDICATIONS NORCO, AND IBUPROFEN HELPS TO REDUCE PAIN NURSING NOTE: -. PAIN CENTER INTAKE QUESTIONS: DO YOU HAVE A HISTORY OF MRSA? :NO DO YOU TAKE A BLOOD THINNERS? :NO DO YOU HAVE ANY BLEEDING DISORDERS? :NO ANY NEW NUMBNESS OR WEAKNESS IN YOUR LEGS OR ARMS? :YES PATIENT HAS NEW WEAKNESS IN ARMS AND HANDS. PATIENT STATES HER HANDS WILL TINGLE. PATIENT HAS AN APPOINTMENT WITH HER PRIMARY FOR THIS MATTER. ANY PACEMAKER,DEFIBRILLATOR, OR DORSAL COLUMN STIMULATOR? :NO DO YOU HAVE ANY RASHES OR OPEN SORES? :NO ARE YOU ALLERGIC TO IV DYE? :NO ARE YOU DIABETIC? :NO ANY NEW PROBLEMS WITH YOUR MEDICATIONS? :YES PATIENT TOOK THE MELOXICAM MEDICATION A FEW TIMES. PATIENT STATES IT WAS NOT WORKING FOR HER AND GAVE HER A STOMACH ACHE. PATIENT SAYS THE IBPROFEN WAS WORKING A LOT MORE FOR HER. HAVE YOU RECEIVED A VACCINE IN THE PAST 30 DAYS? :NO DO YOU PLAN TO RECEIVE A VACCINE IN THE NEXT 21 DAYS? :NO DO YOU NEED ANY PRESCRIPTION? :NO DO YOU TAKE ANY IMMUNOSUPPRESSIVE MEDICATIONS? :NO IS THERE A CHANCE YOU COULD BE ? :NO ARE YOU BREAST FEEDING? :NO CURRENT MEDICATIONS TAKING METOPROLOL TARTRATE 50 MG TABLET ER 1 TABLET WITH FOOD ORALLY DAILY TAKING PROTONIX 20 MG TABLET DELAYED RELEASE 1 TABLET ORALLY ONCE A DAY, NOTES: ONLY NEEDS TAKING LEXAPRO 10 MG TABLET 1 TABLET ORALLY ONCE A DAY TAKING SINGULAIR 10 MG TABLET 1 TABLETS ORALLY ONCE A DAY TAKING WELLBUTRIN SR 150 MG TABLET EXTENDED RELEASE 12 HOUR 1 TABLET IN THE MORNING ORALLY BID TAKING TIZANIDINE HCL 4 MG TABLET 1 TABLET NEEDED ORALLY BEFORE BEDTIME TAKING NORCO 10MG TABLET ER 1 ORALLY TWICE A DAY TAKING IBUPROFEN 800MG 1 TAB ORAL THREE TIMES A DAY NOT-TAKING VYVANSE 20 MG CAPSULE 1 CAPSULE IN THE MORNING ORALLY ONCE A DAY NOT-TAKING MELOXICAM 15 MG TABLET 1 TABLET ORALLY ONCE A DAY NOT-TAKING NORCO 7.5-325 MG TABLET 1 TABLET NEEDED ORALLY Q8H PRN MDD3 NOT-TAKING WELLBUTRIN 100 MG TABLET ORALLY , NOTES: DOSAGE CHANGE NOT-TAKING HYDROCODONE-ACETAMINOPHEN 7.5-325 MG TABLET 1 TABLET NEEDED ORALLY EVERY 6 HRS MDD3, NOTES: 0830 DUPLICATE NOT-TAKING BUSPIRONE HCL MEDICATION LIST REVIEWED AND RECONCILED WITH THE PATIENT PAST MEDICAL HISTORY ARTHRITIS BILATERAL KNEE ANXIETY AND DEPRESSION PULLED MUSCLE RIGHT LOWER LEG HIGH BLOOD PRESSURE / ELEVATED HEART RATE PTSD ALLERGIES IODINE: RASH - ALLERGY PENICILLIN (FOR ALLERGIES USE ONLY): ANAPHYLAXIS - ALLERGY DEMEROL: HEART RACED - ALLERGY LIDOCAINE: SEVERE HEART RACING FOR DAYS - ALLERGY SURGICAL HISTORY LEFT KNEE REPLACEMENT 07/24/18 FAMILY HISTORY FATHER: , DIAGNOSED WITH DIABETES, OTHER SPECIFIED CONDITIONS INFLUENCING HEALTH STATUS MOTHER: , OTHER MALIGNANT NEOPLASM OF UNSPECIFIED SITE SIBLINGS: ALIVE SON(S): ALIVE DAUGHTER(S): ALIVE 2 SON(S) , 4 DAUGHTER(S) . FATHER- ALCOHOLISMMOM-LUNG CASISTER HAS MS1 DAUGHTER HAS AUTO IMMUNE DISORDERDAUGHTER IS A CARRIER OF SANIYA'S DIEASE. SOCIAL HISTORY GENERAL: TOBACCO USE ARE YOU A:FORMER SMOKER 21 YEARS AGO LATEX QUESTIONNAIRE LATEX ALLERGY : HAVE YOU EVER DEVELOPED ANY TYPE OF REACTION AFTER HANDLING LATEX PRODUCTS SUCH RUBBER GLOVES, CONDOMS, DIAPHRAGMS, BALLOONS, SOCKS, OR UNDERWEAR?NO LATEX ALLERGY : HAVE YOU EVER DEVELOPED ANY TYPE OF REACTION DURING OR AFTER DENTAL APPOINTMENT, VAGINAL/RECTAL EXAMINATION, SURGICAL PROCEDURE, OR ANY OTHER EXPOSURE?NO LATEX RISK : HAVE YOU EVER HAD ANY DIFFICULTY BREATHING OR HIVES AFTER EATING OR HANDLING ANY FRUITS, OR VEGETABLES; SUCH KIWI, BANANAS, STONE FRUITS, OR CHESTNUTSNO LATEX RISK : DO YOU HAVE A PREVIOUS PERSONAL HISTORY OF MORE THAN NINE SURGERIES, SPINA BIFIDA, OR REPEATED CATHERIZATIONS? NO LATEX RISK : ARE YOU FREQUENTLY EXPOSED TO LATEX PRODUCTS IN YOUR OCCUPATION?NO DATE ASKED : 02/20/2020 ALCOHOL SCREENING DID YOU HAVE A DRINK CONTAINING ALCOHOL IN THE PAST YEAR?NO POINTS0 INTERPRETATIONNEGATIVE RECREATIONAL DRUG USE DRUG USE?NO CAFFEINE CAFFEINE USE?NO RESTORATIONISM RESTORATIONISM NON DEMONIATIONAL LANGUAGE LANGUAGES SPOKEN:LEBANESE PRIMARY LANGUQGE BULGARIAN EDUCATION LEVEL OF EDUCATION:FINISHED COLLEGE LEARNING BARRIERS / SPECIAL NEEDS BARRIERS TO LEARNING?NO HEARING IMPAIRED?NO VISION IMPAIRED?YES COGNITIVELY IMPAIRED?NO :CORRECTIVE LENSES READINESS TO LEARN?YES LEARNING PREFERENCES?YES :TAPES/VIDEOS, DEMONSTRATION/VERBAL INSTRUCTION LEARNING CAPABILITIES PRESENT?YES EMOTIONAL BARRIERS?NO SPECIAL DEVICES?NO PRINTING PLATE CLERK NEEDED?NO OCCUPATION: DO YOU FEEL SAFE IN YOUR ENVIRONMENT? YES. DIET: DISABLED. EXERCISE: BIKES. MARITAL STATUS: . OTHERS AT HOME: DO YOU FEEL SAFE IN YOUR ENVIRONMENT? 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 IMMUNIZATION PROGRAM DO YOU FEEL SAFE IN YOUR ENVIRONMENT? 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 NEW PATIENT PAIN DIARY TODAY'S VISIT 09/26/2019 PATIENT DESCRIBES PAIN :ACHING, BURNING, HAVE IT ALL THE TIME, STABBING FROM 0-10, WHAT LEVEL IS YOUR PAIN TODAY?10 PRECIPITATING FACTORS WAKES FROM SLEEP, CAN'T STRAIGHTEN IT OUT ALLEVIATING FACTORS ICE, PAIN CLINIC PFS, CLERGY, PUBLIC HEALTH REFERRALS PFS REFERRAL NEEDED?NO CLERGY REFERRAL NEEDED?NO PUBLIC HEALTH REFERRAL NEEDED?NO WAS THE PROVIDER NOTIFIED OF ANY PERTINENT INFO? N/A HAS THE PATIENT BEEN EDUCATED REGARDING HIS/HER PLAN OF CARE?YES HAS THE PATIENT BEEN EDUCATED REGARDING PAIN, THE RISK FOR PAIN, THE IMPORTANCE OF EFFECTIVE PAIN MANAGEMENT, AND THE PAIN ASSESSMENT PROCESS?YES ADVANCE DIRECTIVE ADVANCE DIRECTIVE DISCUSSED WITH PATIENT:YES PATIENT DECLINED HCP INFORMATION. HOSPITALIZATION/MAJOR DIAGNOSTIC PROCEDURE CHILDBIRTH X 6 SURGERY RELATED 07/24/18 REVIEW OF SYSTEMS CONSTITUTIONAL: ANY RECENT FEVER NO . CHILLS NO . WEIGHT CHANGE OF UNKNOWN REASONS NO . GASTROENTEROLOGY: NEW UNEXPLAINABLE CHANGES IN BOWEL CONTROL NO . CONSTIPATION NO . GENITOURINARY: ANY NEW CHANGE IN BLADDER CONTROL? NO . NEUROLOGY: NEW ONSET DIZZINESS OR NEUROLOGICAL CHANGES NOT MENTIONED NO . NEW NUMBNESS OR PAIN PATTERNS NOT MENTIONED AND PERTINENT TO TODAY'S VISIT NO . CARDIOLOGY: NEW CHEST PRESSURE NO . NEW CHEST PAIN NO . RESPIRATORY: UNEXPLAINABLE COUGH NO . NEW SHORTNESS OF BREATH NO . VITAL SIGNS WT 268.2 LBS, HT 55 IN, BMI 62.33 INDEX, BP 145/69 MM HG, HR 78 /MIN, RR 18 /MIN, TEMP 97.1 F, OXYGEN SAT % 97%, NA INITIALS AW 1329. EXAMINATION GENERAL EXAMINATION: GENERALNO ACUTE DISTRESS, WELL NOURISHED AND HYDRATED. PSYCHAPPROPRIATE MOOD AND AFFECT . LUNGS:CLEAR TO AUSCULTATION BILATERALLY, NO WHEEZES, RHONCHI, RALES. HEART:NO MURMURS, REGULAR RATE AND RHYTHM. ASSESSMENTS OSTEOARTHRITIS OF BOTH KNEES, UNSPECIFIED OSTEOARTHRITIS TYPE - M17.0 (PRIMARY) TREATMENT OSTEOARTHRITIS OF BOTH KNEES, UNSPECIFIED OSTEOARTHRITIS TYPE CLINICAL NOTES: 50-YEAR-OLD FEMALE IN FOR CHRONIC PAIN FOLLOW-UP. GIVEN PRESENTING SYMPTOMS RECOMMEND FOLLOW-UP WITH DR. BARCENAS TO DISCUSS COOL RF PROCEDURE FOR KNEES. PATIENT HAS EXPRESSED UNDERSTANDING OF AND WAS IN AGREEMENT WITH TREATMENT PLAN. GIVEN TIME TO ASK QUESTIONS AND EXPRESS CONCERNS. , ISTOP REGISTRY REVIEWED AND DEMONSTRATES COMPLLIANCE. (REF # [id number]) BRINGS IN MEDICATIONS WHICH IS APPROPRIATE FOR WHAT WAS DISPENSED. RECENT URINE TOXICOLOGY REVIEWED. NO UNAUTHORIZED MEDICATIONS. NO ILLICIT SUBSTANCES AND PRESCRIBED MEDICATIONS WERE PRESENT. PROCEDURE CODES FA211 ESTABILISHED PATIENT [facility] CHARGE DISPOSITION & COMMUNICATION FOLLOW UP WITH DR. BARCENAS (REASON: BILATERAL KNEE PAIN) ELECTRONICALLY SIGNED BY BLAINE GRANGER ON 02/21/2020 AT 12:53 PM EDT DISCLAIMER : THIS IS A VISIT SUMMARY EXTRACTED FROM THE [employer] CHART. IT IS NOT A COPY OF THE [employer] PROGRESS NOTE. [place]ELL
--- NOTE | 2020-02-21 12:58 | ECWPNPC ---
PATIENT NAME: ALEXEI BARROS : 1970 GENDER: FEMALE VISIT DATE: 02/20/2020 DISCHARGE DATE: 02/20/20 1422 VISIT LOCKED DATE TIME: PHYSICIAN: KEVIN KOTHARI RESOURCE: KEVIN KOTHARI REASON FOR APPOINTMENT 1. KRIS KNEES HISTORY OF PRESENT ILLNESS DEPRESSION SCREENING: PHQ-2 (2015 EDITION) LITTLE INTEREST OR PLEASURE IN DOING THINGS?NOT AT ALL FEELING DOWN, DEPRESSED, OR HOPELESS?NOT AT ALL TOTAL SCORE0 50-YEAR-OLD FEMALE IN FOR CHRONIC PAIN FOLLOW-UP. SHE RATES HER PAIN CURRENTLY AT A 5 OUT OF 10 AND DESCRIBES IT ACHING, BURNING, SHARP, STABBING, TENDER, THROBBING, AND SHOOTING. SHE FEELS THE MEDICATIONS ARE HELPFUL AND DENIES MED SIDE EFFECTS AT THIS TIME. SHE DOES ADMIT TO INCREASED PAIN WITH ACTIVITY. GENERAL: -. FALL RISK SCREENING: SCREENING :NO FALLS REPORTED IN THE LAST YEAR PAIN SCREENING: PATIENT HAS A COMPLAINT OF ACUTE OR CHRONIC PAIN :YES LOCATION OF PAIN:KNEES INTENSITY OF PAIN (SCALE OF 1 TO 10):5 WHAT DOES YOUR PAIN FEEL LIKE:ACHING, BURNING, SHARP, STABBING, TENDER, THROBBING, SHOOTING DURATION:INTERMITTENT PAIN IS INCREASED BY:ACTIVITIES PAIN IS DECREASED BY:USE OF PAIN MEDICATIONS NORCO, AND IBUPROFEN HELPS TO REDUCE PAIN NURSING NOTE: -. PAIN CENTER INTAKE QUESTIONS: DO YOU HAVE A HISTORY OF MRSA? :NO DO YOU TAKE A BLOOD THINNERS? :NO DO YOU HAVE ANY BLEEDING DISORDERS? :NO ANY NEW NUMBNESS OR WEAKNESS IN YOUR LEGS OR ARMS? :YES PATIENT HAS NEW WEAKNESS IN ARMS AND HANDS. PATIENT STATES HER HANDS WILL TINGLE. PATIENT HAS AN APPOINTMENT WITH HER PRIMARY FOR THIS MATTER. ANY PACEMAKER,DEFIBRILLATOR, OR DORSAL COLUMN STIMULATOR? :NO DO YOU HAVE ANY RASHES OR OPEN SORES? :NO ARE YOU ALLERGIC TO IV DYE? :NO ARE YOU DIABETIC? :NO ANY NEW PROBLEMS WITH YOUR MEDICATIONS? :YES PATIENT TOOK THE MELOXICAM MEDICATION A FEW TIMES. PATIENT STATES IT WAS NOT WORKING FOR HER AND GAVE HER A STOMACH ACHE. PATIENT SAYS THE IBPROFEN WAS WORKING A LOT MORE FOR HER. HAVE YOU RECEIVED A VACCINE IN THE PAST 30 DAYS? :NO DO YOU PLAN TO RECEIVE A VACCINE IN THE NEXT 21 DAYS? :NO DO YOU NEED ANY PRESCRIPTION? :NO DO YOU TAKE ANY IMMUNOSUPPRESSIVE MEDICATIONS? :NO IS THERE A CHANCE YOU COULD BE ? :NO ARE YOU BREAST FEEDING? :NO CURRENT MEDICATIONS TAKING METOPROLOL TARTRATE 50 MG TABLET ER 1 TABLET WITH FOOD ORALLY DAILY TAKING PROTONIX 20 MG TABLET DELAYED RELEASE 1 TABLET ORALLY ONCE A DAY, NOTES: ONLY NEEDS TAKING LEXAPRO 10 MG TABLET 1 TABLET ORALLY ONCE A DAY TAKING SINGULAIR 10 MG TABLET 1 TABLETS ORALLY ONCE A DAY TAKING WELLBUTRIN SR 150 MG TABLET EXTENDED RELEASE 12 HOUR 1 TABLET IN THE MORNING ORALLY BID TAKING TIZANIDINE HCL 4 MG TABLET 1 TABLET NEEDED ORALLY BEFORE BEDTIME TAKING NORCO 10MG TABLET ER 1 ORALLY TWICE A DAY TAKING IBUPROFEN 800MG 1 TAB ORAL THREE TIMES A DAY NOT-TAKING VYVANSE 20 MG CAPSULE 1 CAPSULE IN THE MORNING ORALLY ONCE A DAY NOT-TAKING MELOXICAM 15 MG TABLET 1 TABLET ORALLY ONCE A DAY NOT-TAKING NORCO 7.5-325 MG TABLET 1 TABLET NEEDED ORALLY Q8H PRN MDD3 NOT-TAKING WELLBUTRIN 100 MG TABLET ORALLY , NOTES: DOSAGE CHANGE NOT-TAKING HYDROCODONE-ACETAMINOPHEN 7.5-325 MG TABLET 1 TABLET NEEDED ORALLY EVERY 6 HRS MDD3, NOTES: 0830 DUPLICATE NOT-TAKING BUSPIRONE HCL MEDICATION LIST REVIEWED AND RECONCILED WITH THE PATIENT PAST MEDICAL HISTORY ARTHRITIS BILATERAL KNEE ANXIETY AND DEPRESSION PULLED MUSCLE RIGHT LOWER LEG HIGH BLOOD PRESSURE / ELEVATED HEART RATE PTSD ALLERGIES IODINE: RASH - ALLERGY PENICILLIN (FOR ALLERGIES USE ONLY): ANAPHYLAXIS - ALLERGY DEMEROL: HEART RACED - ALLERGY LIDOCAINE: SEVERE HEART RACING FOR DAYS - ALLERGY SURGICAL HISTORY LEFT KNEE REPLACEMENT 07/24/18 FAMILY HISTORY FATHER: , DIAGNOSED WITH DIABETES, OTHER SPECIFIED CONDITIONS INFLUENCING HEALTH STATUS MOTHER: , OTHER MALIGNANT NEOPLASM OF UNSPECIFIED SITE SIBLINGS: ALIVE SON(S): ALIVE DAUGHTER(S): ALIVE 2 SON(S) , 4 DAUGHTER(S) . FATHER- ALCOHOLISMMOM-LUNG CASISTER HAS MS1 DAUGHTER HAS AUTO IMMUNE DISORDERDAUGHTER IS A CARRIER OF SANIYA'S DIEASE. SOCIAL HISTORY GENERAL: TOBACCO USE ARE YOU A:FORMER SMOKER 21 YEARS AGO LATEX QUESTIONNAIRE LATEX ALLERGY : HAVE YOU EVER DEVELOPED ANY TYPE OF REACTION AFTER HANDLING LATEX PRODUCTS SUCH RUBBER GLOVES, CONDOMS, DIAPHRAGMS, BALLOONS, SOCKS, OR UNDERWEAR?NO LATEX ALLERGY : HAVE YOU EVER DEVELOPED ANY TYPE OF REACTION DURING OR AFTER DENTAL APPOINTMENT, VAGINAL/RECTAL EXAMINATION, SURGICAL PROCEDURE, OR ANY OTHER EXPOSURE?NO LATEX RISK : HAVE YOU EVER HAD ANY DIFFICULTY BREATHING OR HIVES AFTER EATING OR HANDLING ANY FRUITS, OR VEGETABLES; SUCH KIWI, BANANAS, STONE FRUITS, OR CHESTNUTSNO LATEX RISK : DO YOU HAVE A PREVIOUS PERSONAL HISTORY OF MORE THAN NINE SURGERIES, SPINA BIFIDA, OR REPEATED CATHERIZATIONS? NO LATEX RISK : ARE YOU FREQUENTLY EXPOSED TO LATEX PRODUCTS IN YOUR OCCUPATION?NO DATE ASKED : 02/20/2020 ALCOHOL SCREENING DID YOU HAVE A DRINK CONTAINING ALCOHOL IN THE PAST YEAR?NO POINTS0 INTERPRETATIONNEGATIVE RECREATIONAL DRUG USE DRUG USE?NO CAFFEINE CAFFEINE USE?NO YAZDANISM YAZDANISM NON DEMONIATIONAL LANGUAGE LANGUAGES SPOKEN:CITIZEN OF [place] PRIMARY LANGUQGE [place]BIAN EDUCATION LEVEL OF EDUCATION:FINISHED COLLEGE LEARNING BARRIERS / SPECIAL NEEDS BARRIERS TO LEARNING?NO HEARING IMPAIRED?NO VISION IMPAIRED?YES COGNITIVELY IMPAIRED?NO :CORRECTIVE LENSES READINESS TO LEARN?YES LEARNING PREFERENCES?YES :TAPES/VIDEOS, DEMONSTRATION/VERBAL INSTRUCTION LEARNING CAPABILITIES PRESENT?YES EMOTIONAL BARRIERS?NO SPECIAL DEVICES?NO VRT MECHANIC NEEDED?NO OCCUPATION: DO YOU FEEL SAFE IN YOUR ENVIRONMENT? YES. DIET: DISABLED. EXERCISE: BIKES. MARITAL STATUS: . OTHERS AT HOME: DO YOU FEEL SAFE IN YOUR ENVIRONMENT? 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 IMMUNIZATION PROGRAM DO YOU FEEL SAFE IN YOUR ENVIRONMENT? 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 NEW PATIENT PAIN DIARY TODAY'S VISIT 09/26/2019 PATIENT DESCRIBES PAIN :ACHING, BURNING, HAVE IT ALL THE TIME, STABBING FROM 0-10, WHAT LEVEL IS YOUR PAIN TODAY?10 PRECIPITATING FACTORS WAKES FROM SLEEP, CAN'T STRAIGHTEN IT OUT ALLEVIATING FACTORS ICE, PAIN CLINIC PFS, CLERGY, PUBLIC HEALTH REFERRALS PFS REFERRAL NEEDED?NO CLERGY REFERRAL NEEDED?NO PUBLIC HEALTH REFERRAL NEEDED?NO WAS THE PROVIDER NOTIFIED OF ANY PERTINENT INFO? N/A HAS THE PATIENT BEEN EDUCATED REGARDING HIS/HER PLAN OF CARE?YES HAS THE PATIENT BEEN EDUCATED REGARDING PAIN, THE RISK FOR PAIN, THE IMPORTANCE OF EFFECTIVE PAIN MANAGEMENT, AND THE PAIN ASSESSMENT PROCESS?YES ADVANCE DIRECTIVE ADVANCE DIRECTIVE DISCUSSED WITH PATIENT:YES PATIENT DECLINED HCP INFORMATION. HOSPITALIZATION/MAJOR DIAGNOSTIC PROCEDURE CHILDBIRTH X 6 SURGERY RELATED 07/24/18 REVIEW OF SYSTEMS CONSTITUTIONAL: ANY RECENT FEVER NO . CHILLS NO . WEIGHT CHANGE OF UNKNOWN REASONS NO . GASTROENTEROLOGY: NEW UNEXPLAINABLE CHANGES IN BOWEL CONTROL NO . CONSTIPATION NO . GENITOURINARY: ANY NEW CHANGE IN BLADDER CONTROL? NO . NEUROLOGY: NEW ONSET DIZZINESS OR NEUROLOGICAL CHANGES NOT MENTIONED NO . NEW NUMBNESS OR PAIN PATTERNS NOT MENTIONED AND PERTINENT TO TODAY'S VISIT NO . CARDIOLOGY: NEW CHEST PRESSURE NO . NEW CHEST PAIN NO . RESPIRATORY: UNEXPLAINABLE COUGH NO . NEW SHORTNESS OF BREATH NO . VITAL SIGNS WT 268.2 LBS, HT 55 IN, BMI 62.33 INDEX, BP 145/69 MM HG, HR 78 /MIN, RR 18 /MIN, TEMP 97.1 F, OXYGEN SAT % 97%, NA INITIALS AW 1329. EXAMINATION GENERAL EXAMINATION: GENERALNO ACUTE DISTRESS, WELL NOURISHED AND HYDRATED. PSYCHAPPROPRIATE MOOD AND AFFECT . LUNGS:CLEAR TO AUSCULTATION BILATERALLY, NO WHEEZES, RHONCHI, RALES. HEART:NO MURMURS, REGULAR RATE AND RHYTHM. ASSESSMENTS OSTEOARTHRITIS OF BOTH KNEES, UNSPECIFIED OSTEOARTHRITIS TYPE - M17.0 (PRIMARY) TREATMENT OSTEOARTHRITIS OF BOTH KNEES, UNSPECIFIED OSTEOARTHRITIS TYPE CLINICAL NOTES: 50-YEAR-OLD FEMALE IN FOR CHRONIC PAIN FOLLOW-UP. GIVEN PRESENTING SYMPTOMS RECOMMEND FOLLOW-UP WITH DR. BARCENAS TO DISCUSS COOL RF PROCEDURE FOR KNEES. PATIENT HAS EXPRESSED UNDERSTANDING OF AND WAS IN AGREEMENT WITH TREATMENT PLAN. GIVEN TIME TO ASK QUESTIONS AND EXPRESS CONCERNS. , ISTOP REGISTRY REVIEWED AND DEMONSTRATES COMPLLIANCE. (REF # [id number]) BRINGS IN MEDICATIONS WHICH IS APPROPRIATE FOR WHAT WAS DISPENSED. RECENT URINE TOXICOLOGY REVIEWED. NO UNAUTHORIZED MEDICATIONS. NO ILLICIT SUBSTANCES AND PRESCRIBED MEDICATIONS WERE PRESENT. PROCEDURE CODES FA211 ESTABILISHED PATIENT [facility] CHARGE DISPOSITION & COMMUNICATION FOLLOW UP WITH DR. BARCENAS (REASON: BILATERAL KNEE PAIN) ELECTRONICALLY SIGNED BY BLAINE GRANGER ON 02/21/2020 AT 12:53 PM EDT DISCLAIMER : THIS IS A VISIT SUMMARY EXTRACTED FROM THE [employer] CHART. IT IS NOT A COPY OF THE [employer] PROGRESS NOTE. LOWELL
== END ==
LOC: M PAIN 13:30
PROVIDERS: ATTEND Family Medicine
DX: M17.0 Bilateral primary osteoarthritis of knee (principal); G89.29 Other chronic pain; Z86.59 Personal history of other mental and behavioral disorders; Z96.652 Presence of left artificial knee joint; Z87.891 Personal history of nicotine dependence; Z88.0 Allergy status to penicillin; Z88.3 Allergy status to other anti-infective agents; Z88.4 Allergy status to anesthetic agent; Z88.5 Allergy status to narcotic agent; E66.01 Morbid (severe) obesity due to excess calories; Z68.44 Body mass index [BMI] 60.0-69.9, adult; Z79.891 Long term (current) use of opiate analgesic; Z79.899 Other long term (current) drug therapy

== ENCOUNTER → 2020-03-30 | Outpatient (CLI) | payer OTHER ==
--- NOTE | 2020-04-01 06:27 | ECWPNPC ---
PATIENT NAME: ALEXEI BARROS : 1970 GENDER: FEMALE VISIT DATE: 03/30/2020 DISCHARGE DATE: 03/30/20 1605 VISIT LOCKED DATE TIME: PHYSICIAN: TYRELL BARCENAS MD RESOURCE: TYRELL BARCENAS MD REASON FOR APPOINTMENT 1. BILATERAL KNEE PAIN- SEE ONIEL LEIVA HISTORY OF PRESENT ILLNESS GENERAL: 50-YEAR-OLD FEMALE PATIENT WITH A HISTORY OF CHRONIC RIGHT KNEE PAIN. THE PATIENT DESCRIBES THE PAIN ACHING, STABBING, SHOOTING AND THROBBING WITH A PAIN SCORE RANGING FROM 7-10/10 DEPENDING ON PHYSICAL ACTIVITY. THE PATIENT IS WAITING FOR RIGHT KNEE SURGERY. SHE HAS HAD INJECTION THERAPY IN THE RIGHT KNEE IN THE PAST. PATIENT DENIES UNEXPLAINABLE WEIGHT LOSS, FEVER, CHILLS, NEW CHANGES ON URINARY OR BOWEL CONTROL. -. FALL RISK SCREENING: SCREENING :NO FALLS REPORTED IN THE LAST YEAR PAIN SCREENING: PATIENT HAS A COMPLAINT OF ACUTE OR CHRONIC PAIN :YES LOCATION OF PAIN:KNEES RIGHT KNEE INTENSITY OF PAIN (SCALE OF 1 TO 10):6 AVERAGE 10+ WHAT DOES YOUR PAIN FEEL LIKE:ACHING, BURNING, CONTINOUS, SHARP, STABBING, TENDER, SORE, SHOOTING DURATION:CONTINOUS, CONSTANT, AWAKENS FROM SLEEP PAIN IS INCREASED BY: EVERYTHING, STANDING BEING THE WORSE, WEATHER PAIN IS DECREASED BY: ICE, REST(SOMETIMES) NURSING NOTE: -. PAIN CENTER INTAKE QUESTIONS: DO YOU HAVE A HISTORY OF MRSA? :NO DO YOU TAKE A BLOOD THINNERS? :NO DO YOU HAVE ANY BLEEDING DISORDERS? :NO ANY NEW NUMBNESS OR WEAKNESS IN YOUR LEGS OR ARMS? :NO ANY PACEMAKER,DEFIBRILLATOR, OR DORSAL COLUMN STIMULATOR? :NO DO YOU HAVE ANY RASHES OR OPEN SORES? :NO ARE YOU ALLERGIC TO IV DYE? :NO ARE YOU DIABETIC? :NO ANY NEW PROBLEMS WITH YOUR MEDICATIONS? :NO HAVE YOU RECEIVED A VACCINE IN THE PAST 30 DAYS? :NO DO YOU PLAN TO RECEIVE A VACCINE IN THE NEXT 21 DAYS? :NO DO YOU NEED ANY PRESCRIPTION? :YES TIZANIDINE, HYDROCODONE ER DO YOU TAKE ANY IMMUNOSUPPRESSIVE MEDICATIONS? :NO IS THERE A CHANCE YOU COULD BE ? :NO ARE YOU BREAST FEEDING? :NO CURRENT MEDICATIONS TAKING METOPROLOL TARTRATE 50 MG TABLET ER 1 TABLET WITH FOOD ORALLY DAILY TAKING PROTONIX 20 MG TABLET DELAYED RELEASE 1 TABLET ORALLY TWICE DAILY TAKING LEXAPRO 10 MG TABLET 1 TABLET ORALLY ONCE A DAY TAKING SINGULAIR 10 MG TABLET 1 TABLETS ORALLY ONCE A DAY TAKING WELLBUTRIN SR 150 MG TABLET EXTENDED RELEASE 12 HOUR 1 TABLET IN THE MORNING ORALLY BID TAKING TIZANIDINE HCL 4 MG TABLET 1 TABLET NEEDED ORALLY BEFORE BEDTIME TAKING HYDROCODONE BITARTRATE ER 10 MG CAPSULE ER 12 HOUR ABUSE-DETERRENT 1 CAPSULE ORALLY EVERY 12 HRS TAKING IBUPROFEN 800MG 1 TAB ORAL THREE TIMES A DAY TAKING BIOFLEX - TABLET 3 TABS ORALLY DAILY TAKING VITAMIN B-12 3000 MCG/ML LIQUID DIRECTED SUBLINGUAL NOT-TAKING NORCO 10MG TABLET ER 1 ORALLY TWICE A DAY NOT-TAKING VYVANSE 20 MG CAPSULE 1 CAPSULE IN THE MORNING ORALLY ONCE A DAY NOT-TAKING MELOXICAM 15 MG TABLET 1 TABLET ORALLY ONCE A DAY NOT-TAKING NORCO 7.5-325 MG TABLET 1 TABLET NEEDED ORALLY Q8H PRN MDD3 NOT-TAKING WELLBUTRIN 100 MG TABLET ORALLY , NOTES: DOSAGE CHANGE NOT-TAKING HYDROCODONE-ACETAMINOPHEN 7.5-325 MG TABLET 1 TABLET NEEDED ORALLY EVERY 6 HRS MDD3, NOTES: 0830 DUPLICATE NOT-TAKING BUSPIRONE HCL MEDICATION LIST REVIEWED AND RECONCILED WITH THE PATIENT PAST MEDICAL HISTORY ARTHRITIS BILATERAL KNEE ANXIETY AND DEPRESSION PULLED MUSCLE RIGHT LOWER LEG HIGH BLOOD PRESSURE / ELEVATED HEART RATE PTSD CHRONIC PAIN ALLERGIES IODINE: RASH - ALLERGY PENICILLIN (FOR ALLERGIES USE ONLY): ANAPHYLAXIS - ALLERGY DEMEROL: HEART RACED - ALLERGY LIDOCAINE: SEVERE HEART RACING FOR DAYS - ALLERGY SURGICAL HISTORY LEFT KNEE REPLACEMENT 07/24/18 D&C FAMILY HISTORY FATHER: , DIAGNOSED WITH DIABETES, OTHER SPECIFIED CONDITIONS INFLUENCING HEALTH STATUS MOTHER: , OTHER MALIGNANT NEOPLASM OF UNSPECIFIED SITE SIBLINGS: ALIVE SON(S): ALIVE DAUGHTER(S): ALIVE 2 SON(S) , 4 DAUGHTER(S) . FATHER- ALCOHOLISMMOM-LUNG CASISTER HAS MS1 DAUGHTER HAS AUTO IMMUNE DISORDERDAUGHTER IS A CARRIER OF SANIYA'S DIEASE. SOCIAL HISTORY GENERAL: TOBACCO USE ARE YOU A:FORMER SMOKER 21 YEARS AGO LATEX QUESTIONNAIRE LATEX ALLERGY : HAVE YOU EVER DEVELOPED ANY TYPE OF REACTION AFTER HANDLING LATEX PRODUCTS SUCH RUBBER GLOVES, CONDOMS, DIAPHRAGMS, BALLOONS, SOCKS, OR UNDERWEAR?NO LATEX ALLERGY : HAVE YOU EVER DEVELOPED ANY TYPE OF REACTION DURING OR AFTER DENTAL APPOINTMENT, VAGINAL/RECTAL EXAMINATION, SURGICAL PROCEDURE, OR ANY OTHER EXPOSURE?NO LATEX RISK : HAVE YOU EVER HAD ANY DIFFICULTY BREATHING OR HIVES AFTER EATING OR HANDLING ANY FRUITS, OR VEGETABLES; SUCH KIWI, BANANAS, STONE FRUITS, OR CHESTNUTSNO LATEX RISK : DO YOU HAVE A PREVIOUS PERSONAL HISTORY OF MORE THAN NINE SURGERIES, SPINA BIFIDA, OR REPEATED CATHERIZATIONS? NO LATEX RISK : ARE YOU FREQUENTLY EXPOSED TO LATEX PRODUCTS IN YOUR OCCUPATION?NO DATE ASKED : 03/30/2020 ALCOHOL SCREENING DID YOU HAVE A DRINK CONTAINING ALCOHOL IN THE PAST YEAR?NO POINTS0 INTERPRETATIONNEGATIVE RECREATIONAL DRUG USE DRUG USE?NO CAFFEINE CAFFEINE USE?NO FAITH FAITH NON DEMONIATIONAL LANGUAGE LANGUAGES SPOKEN:SYRIAN PRIMARY LANGUQGE FRENCH EDUCATION LEVEL OF EDUCATION:FINISHED COLLEGE LEARNING BARRIERS / SPECIAL NEEDS BARRIERS TO LEARNING?NO HEARING IMPAIRED?NO VISION IMPAIRED?YES :CORRECTIVE LENSES COGNITIVELY IMPAIRED?NO READINESS TO LEARN?YES LEARNING PREFERENCES?YES :TAPES/VIDEOS, DEMONSTRATION/VERBAL INSTRUCTION LEARNING CAPABILITIES PRESENT?YES EMOTIONAL BARRIERS?NO SPECIAL DEVICES?NO FABRIC PATTERN GRADER NEEDED?NO DOMESTIC VIOLENCE DO YOU FEEL SAFE IN YOUR ENVIRONMENT?YES DIET: DISABLED. EXERCISE: BIKES. MARITAL STATUS: . OTHERS AT HOME: DO YOU FEEL SAFE IN YOUR ENVIRONMENT? 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 IMMUNIZATION PROGRAM DO YOU FEEL SAFE IN YOUR ENVIRONMENT? 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 PAIN CLINIC PFS, CLERGY, PUBLIC HEALTH REFERRALS PFS REFERRAL NEEDED?NO CLERGY REFERRAL NEEDED?NO PUBLIC HEALTH REFERRAL NEEDED?NO WAS THE PROVIDER NOTIFIED OF ANY PERTINENT INFO? N/A HAS THE PATIENT BEEN EDUCATED REGARDING HIS/HER PLAN OF CARE?YES HAS THE PATIENT BEEN EDUCATED REGARDING PAIN, THE RISK FOR PAIN, THE IMPORTANCE OF EFFECTIVE PAIN MANAGEMENT, AND THE PAIN ASSESSMENT PROCESS?YES ADVANCE DIRECTIVE ADVANCE DIRECTIVE DISCUSSED WITH PATIENT:YES 03/30/2020 PT DOES NOT HAVE ANY ADVANCED DIRECTIVES AND SHE DECLINED HCP INFORMATION AT THIS TIME. AD HOSPITALIZATION/MAJOR DIAGNOSTIC PROCEDURE CHILDBIRTH X 6 SURGERY RELATED 07/24/18 REVIEW OF SYSTEMS CONSTITUTIONAL: ANY RECENT FEVER NO . CHILLS NO . WEIGHT CHANGE OF UNKNOWN REASONS NO . GASTROENTEROLOGY: NEW UNEXPLAINABLE CHANGES IN BOWEL CONTROL NO . CONSTIPATION NO . GENITOURINARY: ANY NEW CHANGE IN BLADDER CONTROL? NO . NEUROLOGY: NEW ONSET DIZZINESS OR NEUROLOGICAL CHANGES NOT MENTIONED NO . NEW NUMBNESS OR PAIN PATTERNS NOT MENTIONED AND PERTINENT TO TODAY'S VISIT NO . CARDIOLOGY: NEW CHEST PRESSURE NO . NEW CHEST PAIN NO . RESPIRATORY: UNEXPLAINABLE COUGH NO . NEW SHORTNESS OF BREATH NO . VITAL SIGNS WT 272 LBS, HT 55 IN, BMI 63.21 INDEX, BP 149/74 MM HG, HR 75 /MIN, RR 18 /MIN, TEMP 96.8 F, OXYGEN SAT % 96%, SAFE IN ENV? (Y/N) Y, NA INITIALS CA 15:15, REVIEWED BY: Jose WARREN RN [id number]. EXAMINATION GENERAL EXAMINATION: THE PATIENT IS ALERT, ORIENTED TIMES THREE AND COOPERATIVE. HEART SHOWS REGULAR RHYTHM, NO MURMURS AND NO GALLOPS. LUNGS ARE CLEAR TO AUSCULTATION. THE PATIENT HAS PAIN MOSTLY OVER THE MEDIAL ASPECT OF THE RIGHT KNEE. THE RIGHT LEG IS WEAKER THAN THE LEFT ON FLEXION AND EXTENSION. THERE IS SOME TENDERNESS OVER THE RIGHT KNEE ESPECIALLY OVER THE MEDIAL ASPECT. MRI OF THE RIGHT KNEE DATED 11/26/2019 SHOWS SOME CHONDROMALACIA, EFFUSION AND SOME TEARS. 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 BARROS. I AM GOING TO REQUEST AUTHORIZATION FOR A RIGHT KNEE DIAGNOSTIC NERVE BLOCK NUMBER 1. I WOULD LIKE TO SEND A NOTE TO THE PATIENT'S SURGEON SO HE KNOW WHAT I AM DOING AND MAKE SURE THAT IT IS OKAY WITH HIM THAT I CONSIDER RADIOFREQUENCY BEFORE THE KNEE SURGERY. I WILL REFILL THE PATIENT'S HYDROCODONE AND HER TIZANIDINE AND I WILL INCREASE IT TO 2 A DAY. ISTOP NUMBER [id number] CHECKED. I REMINDED THE PATIENT NOT TO DRINK ALCOHOL WITH NARCOTICS. I DISCUSSED WITH THE PATIENT TO KEEP HER MEDICATIONS IN A SAFE PLACE. I DISCUSSED WITH HER THE POSSIBILITY OF RESPIRATORY DEPRESSION. THE PATIENT UNDERSTANDS AND AGREES WITH THE PLAN. I, SHAKA GANDARA, DOCUMENTED THE ABOVE INFORMATION ACTING A SCRIBE FOR DR. BARCENAS. I HAVE REVIEWED THE ABOVE DOCUMENT, WRITTEN BY SHAKA GANDARA, JEWELRY ESTIMATOR, AND I VERIFY THAT IT IS ACCURATE. PREVENTIVE MEDICINE PAIN CLINIC TEACHING: PROCEDURE TEACHING PT DECLINED INFORMATION ON RADIOFREQUENCY STATING DR. BARCENAS EXPLAINED IT WELL FOR HER AND SHE DIDN'T HAVE ANY QUESTIONS ON IT. PRINTED PRE-PROCEDURE INSTRUCTIONS GIVEN TO AND REVIEWED WITH PT AND SHE VERBALIZED UNDERSTANDING. AD. PROCEDURE CODES FA211 ESTABILISHED PATIENT [facility] CHARGE [id number] OFFICE/OUTPATIENT VISIT EST DISPOSITION & COMMUNICATION FOLLOW UP REQUEST AUTH FOR RIGHT KNEE DIAGNOSTIC NERVE BLOCK #1 (REASON: REQUEST AUTH FOR RIGHT KNEE DIAGNOSTIC NERVE BLOCK #1) ELECTRONICALLY SIGNED BY TYRELL BARCENAS MD, MD ON 03/31/2020 AT 11:39 AM EST DISCLAIMER : THIS IS A VISIT SUMMARY EXTRACTED FROM THE [employer] CHART. IT IS NOT A COPY OF THE [employer] PROGRESS NOTE. LOWELL
== END ==
LOC: M PAIN 15:00
PROVIDERS: ATTEND Anesthesiology
DX: M94.261 Chondromalacia, right knee (principal); M25.561 Pain in right knee; M17.0 Bilateral primary osteoarthritis of knee; F41.9 Anxiety disorder, unspecified; F32.9 Major depressive disorder, single episode, unspecified; F43.10 Post-traumatic stress disorder, unspecified; G89.29 Other chronic pain; Z79.899 Other long term (current) drug therapy; Z88.0 Allergy status to penicillin; Z88.4 Allergy status to anesthetic agent; Z88.5 Allergy status to narcotic agent; Z88.8 Allergy status to other drugs, medicaments and biological substances

== ENCOUNTER → 2020-08-20 | Outpatient (CLI) | payer OTHER ==
--- NOTE | 2020-08-22 05:28 | ECWPNPC ---
PATIENT NAME: ALEXEI BARROS : 1970 GENDER: FEMALE VISIT DATE: 08/20/2020 DISCHARGE DATE: 08/20/20 1503 VISIT LOCKED DATE TIME: PHYSICIAN: KEVIN KOTHARI RESOURCE: KEVIN KOTHARI REASON FOR APPOINTMENT 1. F/U HISTORY OF PRESENT ILLNESS DEPRESSION SCREENING: PHQ-2 (2015 EDITION) LITTLE INTEREST OR PLEASURE IN DOING THINGS?NOT AT ALL FEELING DOWN, DEPRESSED, OR HOPELESS?SEVERAL DAYS TOTAL SCORE1 50-YEAR-OLD FEMALE IN FOR CHRONIC PAIN FOLLOW-UP. PATIENT FEELS HER MEDICATIONS ARE HELPFUL AND DENIES MED SIDE EFFECTS AT THIS TIME. SHE RATES HER PAIN CURRENTLY AT A 4/10 AND DESCRIBES IT ACHING, BURNING, SHARP, STABBING, THROBBING, SORE, AND SHOOTING. GENERAL: -. FALL RISK SCREENING: SCREENING : NO FALLS REPORTED IN THE LAST YEAR. PAIN SCREENING: PATIENT HAS A COMPLAINT OF ACUTE OR CHRONIC PAIN :YES LOCATION OF PAIN:LOW BACK, KNEES INTENSITY OF PAIN (SCALE OF 1 TO 10):4 WHAT DOES YOUR PAIN FEEL LIKE:ACHING, BURNING, SHARP, STABBING, THROBBING, SORE, SHOOTING DURATION:CONTINOUS, CONSTANT PAIN IS INCREASED BY:ACTIVITIES PAIN IS DECREASED BY:USE OF PAIN MEDICATIONS NURSING NOTE: -. PAIN CENTER INTAKE QUESTIONS: DO YOU HAVE A HISTORY OF MRSA? :NO DO YOU TAKE A BLOOD THINNERS? :NO DO YOU HAVE ANY BLEEDING DISORDERS? :NO ANY NEW NUMBNESS OR WEAKNESS IN YOUR LEGS OR ARMS? :NO ANY PACEMAKER,DEFIBRILLATOR, OR DORSAL COLUMN STIMULATOR? :NO DO YOU HAVE ANY RASHES OR OPEN SORES? :NO ARE YOU ALLERGIC TO IV DYE? :NO ARE YOU DIABETIC? :NO ANY NEW PROBLEMS WITH YOUR MEDICATIONS? :NO HAVE YOU RECEIVED A VACCINE IN THE PAST 30 DAYS? :NO DO YOU PLAN TO RECEIVE A VACCINE IN THE NEXT 21 DAYS? :NO DO YOU NEED ANY PRESCRIPTION? :YES NEEDS PAPER SCRIPT FOR HYDROCODONE DO YOU TAKE ANY IMMUNOSUPPRESSIVE MEDICATIONS? :NO DO YOU HAVE ANY KIDNEY OR LIVER DISEASE? :NO IS THERE A CHANCE YOU COULD BE ? :NO ARE YOU BREAST FEEDING? :NO CURRENT MEDICATIONS TAKING METOPROLOL TARTRATE 50 MG TABLET ER 1 TABLET WITH FOOD ORALLY DAILY TAKING PROTONIX 20 MG TABLET DELAYED RELEASE 1 TABLET ORALLY TWICE DAILY TAKING LEXAPRO 10 MG TABLET 1 TABLET ORALLY ONCE A DAY TAKING SINGULAIR 10 MG TABLET 1 TABLETS ORALLY ONCE A DAY TAKING WELLBUTRIN SR 150 MG TABLET EXTENDED RELEASE 12 HOUR 1 TABLET IN THE MORNING ORALLY BID TAKING IBUPROFEN 800MG 1 TAB ORAL THREE TIMES A DAY TAKING BIOFLEX - TABLET 3 TABS ORALLY DAILY TAKING VITAMIN B-12 3000 MCG/ML LIQUID DIRECTED SUBLINGUAL TAKING TIZANIDINE HCL 4 MG TABLET 1 TABLET NEEDED ORALLY BEFORE BEDTIME MAY REPEAT IN 5 HRS MDD2 TAKING NORCO 7.5-325 MG TABLET 1 TABLET NEEDED ORALLY Q8H PRN MDD3 TAKING HYDROCODONE-ACETAMINOPHEN 7.5-325 MG TABLET 1 TABLET NEEDED ORALLY EVERY 6 HRS MDD3, NOTES: 0830 DUPLICATE NOT-TAKING NORCO 10MG TABLET ER 1 ORALLY TWICE A DAY NOT-TAKING VYVANSE 20 MG CAPSULE 1 CAPSULE IN THE MORNING ORALLY ONCE A DAY NOT-TAKING MELOXICAM 15 MG TABLET 1 TABLET ORALLY ONCE A DAY NOT-TAKING WELLBUTRIN 100 MG TABLET ORALLY , NOTES: DOSAGE CHANGE NOT-TAKING BUSPIRONE HCL MEDICATION LIST REVIEWED AND RECONCILED WITH THE PATIENT PAST MEDICAL HISTORY ARTHRITIS BILATERAL KNEE ANXIETY AND DEPRESSION PULLED MUSCLE RIGHT LOWER LEG HIGH BLOOD PRESSURE / ELEVATED HEART RATE PTSD CHRONIC PAIN ALLERGIES IODINE: RASH - ALLERGY PENICILLIN (FOR ALLERGIES USE ONLY): ANAPHYLAXIS - ALLERGY DEMEROL: HEART RACED - ALLERGY LIDOCAINE: SEVERE HEART RACING FOR DAYS - ALLERGY SOCIAL HISTORY GENERAL: TOBACCO USE ARE YOU A:FORMER SMOKER 21 YEARS AGO LATEX QUESTIONNAIRE LATEX ALLERGY : HAVE YOU EVER DEVELOPED ANY TYPE OF REACTION AFTER HANDLING LATEX PRODUCTS SUCH RUBBER GLOVES, CONDOMS, DIAPHRAGMS, BALLOONS, SOCKS, OR UNDERWEAR?NO LATEX ALLERGY : HAVE YOU EVER DEVELOPED ANY TYPE OF REACTION DURING OR AFTER DENTAL APPOINTMENT, VAGINAL/RECTAL EXAMINATION, SURGICAL PROCEDURE, OR ANY OTHER EXPOSURE?NO DATE ASKED : 03/30/2020 LATEX RISK : HAVE YOU EVER HAD ANY DIFFICULTY BREATHING OR HIVES AFTER EATING OR HANDLING ANY FRUITS, OR VEGETABLES; SUCH KIWI, BANANAS, STONE FRUITS, OR CHESTNUTSNO LATEX RISK : DO YOU HAVE A PREVIOUS PERSONAL HISTORY OF MORE THAN NINE SURGERIES, SPINA BIFIDA, OR REPEATED CATHERIZATIONS? NO LATEX RISK : ARE YOU FREQUENTLY EXPOSED TO LATEX PRODUCTS IN YOUR OCCUPATION?NO ALCOHOL SCREENING DID YOU HAVE A DRINK CONTAINING ALCOHOL IN THE PAST YEAR?NO POINTS0 INTERPRETATIONNEGATIVE RECREATIONAL DRUG USE DRUG USE?NO CAFFEINE CAFFEINE USE?NO RESTORATION RESTORATION NON DEMONIATIONAL LANGUAGE LANGUAGES SPOKEN:HUNGARIAN PRIMARY LANGUQGE WELSH EDUCATION LEVEL OF EDUCATION:FINISHED COLLEGE LEARNING BARRIERS / SPECIAL NEEDS BARRIERS TO LEARNING?NO HEARING IMPAIRED?NO VISION IMPAIRED?YES COGNITIVELY IMPAIRED?NO :CORRECTIVE LENSES READINESS TO LEARN?YES LEARNING PREFERENCES?YES :TAPES/VIDEOS, DEMONSTRATION/VERBAL INSTRUCTION LEARNING CAPABILITIES PRESENT?YES EMOTIONAL BARRIERS?NO SPECIAL DEVICES?NO REPORTING ANALYST NEEDED?NO DOMESTIC VIOLENCE DO YOU FEEL SAFE IN YOUR ENVIRONMENT?YES DIET: DISABLED. EXERCISE: BIKES. MARITAL STATUS: . OTHERS AT HOME: DO YOU FEEL SAFE IN YOUR ENVIRONMENT? 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 IMMUNIZATION PROGRAM DO YOU FEEL SAFE IN YOUR ENVIRONMENT? 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 - PFS REFERRAL NEEDED?NO CLERGY REFERRAL NEEDED?NO PUBLIC HEALTH REFERRAL NEEDED?NO WAS THE PROVIDER NOTIFIED OF ANY PERTINENT INFO? N/A HAS THE PATIENT BEEN EDUCATED REGARDING HIS/HER PLAN OF CARE?YES HAS THE PATIENT BEEN EDUCATED REGARDING PAIN, THE RISK FOR PAIN, THE IMPORTANCE OF EFFECTIVE PAIN MANAGEMENT, AND THE PAIN ASSESSMENT PROCESS?YES ADVANCE DIRECTIVE ADVANCE DIRECTIVE DISCUSSED WITH PATIENT:YES 03/30/2020 PT DOES NOT HAVE ANY ADVANCED DIRECTIVES AND SHE DECLINED HCP INFORMATION AT THIS TIME. AD REVIEW OF SYSTEMS CONSTITUTIONAL: ANY RECENT FEVER NO . CHILLS NO . WEIGHT CHANGE OF UNKNOWN REASONS NO . GASTROENTEROLOGY: NEW UNEXPLAINABLE CHANGES IN BOWEL CONTROL NO . CONSTIPATION NO . GENITOURINARY: ANY NEW CHANGE IN BLADDER CONTROL? NO . NEUROLOGY: NEW ONSET DIZZINESS OR NEUROLOGICAL CHANGES NOT MENTIONED NO . NEW NUMBNESS OR PAIN PATTERNS NOT MENTIONED AND PERTINENT TO TODAY'S VISIT NO . CARDIOLOGY: NEW CHEST PRESSURE NO . PATIENT DENIES NO . RESPIRATORY: UNEXPLAINABLE COUGH NO . NEW SHORTNESS OF BREATH NO . VITAL SIGNS WT 281.4 LBS, HT 55 IN, BMI 65.40 INDEX, BP 169/80 MM HG, REPEAT BP 148/98 MM HG, HR 82 /MIN, RR 18 /MIN, TEMP 96.5 F, OXYGEN SAT % 96%, SAFE IN ENV? (Y/N) Y, NA INITIALS IN 14:05, REVIEWED BY: AYDEN B/P WAS MANUAL, KEVIN IS AWARE. Araceli RUSSO SMALL ENGINE TECHNICIAN. EXAMINATION GENERAL EXAMINATION: GENERALNO ACUTE DISTRESS, WELL NOURISHED AND HYDRATED. PSYCHAPPROPRIATE MOOD AND AFFECT . LUNGS:CLEAR TO AUSCULTATION BILATERALLY, NO WHEEZES, RHONCHI, RALES. HEART:NO MURMURS, REGULAR RATE AND RHYTHM. ASSESSMENTS PAIN IN LEFT KNEE - M25.562 (PRIMARY) PAIN IN RIGHT KNEE - M25.561 CHRONIC PRESCRIPTION OPIATE USE - Z79.891 TREATMENT PAIN IN LEFT KNEE NOTES: 50-YEAR-OLD FEMALE IN FOR CHRONIC PAIN FOLLOW-UP. GIVEN PRESENTING SYMPTOMS RECOMMENDED CONTINUATION OF CURRENT MEDICATION REGIMEN WITH FOLLOW-UP IN 3 MONTHS. PATIENT HAS EXPRESSED UNDERSTANDING OF AND WAS IN AGREEMENT TREATMENT PLAN. GIVEN TIME TO ASK QUESTIONS AND EXPRESS CONCERNS. , ISTOP REGISTRY REVIEWED AND DEMONSTRATES COMPLLIANCE. (REF # ) BRINGS IN MEDICATIONS WHICH IS APPROPRIATE FOR WHAT WAS DISPENSED. RECENT URINE TOXICOLOGY REVIEWED. NO UNAUTHORIZED MEDICATIONS. NO ILLICIT SUBSTANCES AND PRESCRIBED MEDICATIONS WERE PRESENT. CHRONIC PRESCRIPTION OPIATE USE LAB: [facility] DEANNA RUSSO 08/20/2020 2:58:43 PM > SANDER 08/20/20 @ 1200 DISPOSITION & COMMUNICATION FOLLOW UP 3 MONTHS (REASON: KNEE PAIN ) ELECTRONICALLY SIGNED BY BLAINE GRANGER ON 08/21/2020 AT 01:13 PM EDT DISCLAIMER : THIS IS A VISIT SUMMARY EXTRACTED FROM THE [facility] CHART. IT IS NOT A COPY OF THE [facility] PROGRESS NOTE. LOWELL
== END ==
LOC: M PAIN 14:00
PROVIDERS: ATTEND Family Medicine
DX: M25.562 Pain in left knee (principal); M25.561 Pain in right knee; M17.0 Bilateral primary osteoarthritis of knee; F41.9 Anxiety disorder, unspecified; F32.9 Major depressive disorder, single episode, unspecified; F43.10 Post-traumatic stress disorder, unspecified; G89.29 Other chronic pain; Z87.891 Personal history of nicotine dependence; Z79.891 Long term (current) use of opiate analgesic; Z79.899 Other long term (current) drug therapy; Z88.0 Allergy status to penicillin; Z88.4 Allergy status to anesthetic agent; Z88.8 Allergy status to other drugs, medicaments and biological substances

== ENCOUNTER → 2020-11-12 | Outpatient (CLI) | payer OTHER ==
--- NOTE | 2020-11-14 06:32 | ECWPNPC ---
PATIENT NAME: ALEXEI BARROS : 1970 GENDER: FEMALE VISIT DATE: 11/12/2020 DISCHARGE DATE: 11/12/20 1431 VISIT LOCKED DATE TIME: PHYSICIAN: KEVIN KOTHARI RESOURCE: KEVIN KOTHARI REASON FOR APPOINTMENT 1. ARTHRITIS HISTORY OF PRESENT ILLNESS GENERAL: HPI 50-YEAR-OLD FEMALE IN FOR CHRONIC PAIN FOLLOW-UP. PATIENT FEELS HER CURRENT DOSAGE OF MEDICATION IS INEFFECTIVE IN MANAGING HER PAIN SYMPTOMS. SHE RATES HER PAIN CURRENTLY AT A 7 OUT OF 10 AND DESCRIBES IT ACHING, BURNING, AND CONTINUOUS.. -. FALL RISK SCREENING: SCREENING : NO FALLS REPORTED IN THE LAST YEAR. PAIN SCREENING: PATIENT HAS A COMPLAINT OF ACUTE OR CHRONIC PAIN :YES LOCATION OF PAIN:OTHER: GENERALIZED INTENSITY OF PAIN (SCALE OF 1 TO 10):7 WHAT DOES YOUR PAIN FEEL LIKE:ACHING, BURNING, CONTINOUS, SHARP, STABBING, TENDER, THROBBING, SORE, SHOOTING DURATION:CONTINOUS, CONSTANT, AWAKENS FROM SLEEP PAIN IS INCREASED BY:ACTIVITIES, PROLONGED STANDING PAIN IS DECREASED BY:USE OF PAIN MEDICATIONS, OTHERS LAYING DOWN NURSING NOTE: -. PAIN CENTER INTAKE QUESTIONS: DO YOU HAVE A HISTORY OF MRSA? :NO DO YOU TAKE A BLOOD THINNERS? :NO DO YOU HAVE ANY BLEEDING DISORDERS? :NO ANY NEW NUMBNESS OR WEAKNESS IN YOUR LEGS OR ARMS? :NO ANY PACEMAKER,DEFIBRILLATOR, OR DORSAL COLUMN STIMULATOR? :NO DO YOU HAVE ANY RASHES OR OPEN SORES? :NO ARE YOU ALLERGIC TO IV DYE? :NO ARE YOU DIABETIC? :NO ANY NEW PROBLEMS WITH YOUR MEDICATIONS? :NO HAVE YOU RECEIVED A VACCINE IN THE PAST 30 DAYS? :YES SECOND COVID VACCINATION 11/19/2020 DO YOU PLAN TO RECEIVE A VACCINE IN THE NEXT 21 DAYS? :NO DO YOU NEED ANY PRESCRIPTION? :YES TIZANIDINE AND HYDROCODONE, NEEDS PAPER SCRIPT DO YOU TAKE ANY IMMUNOSUPPRESSIVE MEDICATIONS? :NO DO YOU HAVE ANY KIDNEY OR LIVER DISEASE? :NO IS THERE A CHANCE YOU COULD BE ? :NO ARE YOU BREAST FEEDING? :NO CURRENT MEDICATIONS TAKING METOPROLOL TARTRATE 50 MG TABLET ER 1 TABLET WITH FOOD ORALLY DAILY TAKING PROTONIX 20 MG TABLET DELAYED RELEASE 1 TABLET ORALLY TWICE DAILY TAKING LEXAPRO 10 MG TABLET 1 TABLET ORALLY ONCE A DAY TAKING SINGULAIR 10 MG TABLET 1 TABLETS ORALLY ONCE A DAY TAKING WELLBUTRIN SR 150 MG TABLET EXTENDED RELEASE 12 HOUR 1 TABLET IN THE MORNING ORALLY BID TAKING IBUPROFEN 800MG 1 TAB ORAL THREE TIMES A DAY TAKING HYDROCODONE-ACETAMINOPHEN 7.5-325 MG TABLET 1 TABLET NEEDED ORALLY EVERY 6 HRS MDD 4 110 TABS TO LAST 30 DAYS TAKING HYDROCODONE-ACETAMINOPHEN 7.5-325 MG TABLET 1 TABLET NEEDED ORALLY Q8H PRN MDD3 TAKING TIZANIDINE HCL 4 MG TABLET 1 TABLET NEEDED ORALLY BEFORE BEDTIME MAY REPEAT IN 5 HRS MDD2 NOT-TAKING BIOFLEX - TABLET 3 TABS ORALLY DAILY NOT-TAKING VITAMIN B-12 3000 MCG/ML LIQUID DIRECTED SUBLINGUAL , NOTES: DUPLICATE NOT-TAKING HYDROCODONE-ACETAMINOPHEN 7.5-325 MG TABLET 1 TABLET NEEDED ORALLY EVERY 6 HRS MDD3, NOTES: 0830 DUPLICATE NOT-TAKING NORCO 10MG TABLET ER 1 ORALLY TWICE A DAY NOT-TAKING VYVANSE 20 MG CAPSULE 1 CAPSULE IN THE MORNING ORALLY ONCE A DAY NOT-TAKING MELOXICAM 15 MG TABLET 1 TABLET ORALLY ONCE A DAY NOT-TAKING WELLBUTRIN 100 MG TABLET ORALLY , NOTES: DOSAGE CHANGE NOT-TAKING BUSPIRONE HCL MEDICATION LIST REVIEWED AND RECONCILED WITH THE PATIENT PAST MEDICAL HISTORY ARTHRITIS BILATERAL KNEE ANXIETY AND DEPRESSION PULLED MUSCLE RIGHT LOWER LEG HIGH BLOOD PRESSURE / ELEVATED HEART RATE PTSD CHRONIC PAIN ALLERGIES IODINE: RASH - ALLERGY PENICILLIN (FOR ALLERGIES USE ONLY): ANAPHYLAXIS - ALLERGY DEMEROL: HEART RACED - ALLERGY LIDOCAINE: SEVERE HEART RACING FOR DAYS - ALLERGY SOCIAL HISTORY GENERAL: TOBACCO USE ARE YOU A:FORMER SMOKER 21 YEARS AGO LATEX QUESTIONNAIRE LATEX ALLERGY : HAVE YOU EVER DEVELOPED ANY TYPE OF REACTION AFTER HANDLING LATEX PRODUCTS SUCH RUBBER GLOVES, CONDOMS, DIAPHRAGMS, BALLOONS, SOCKS, OR UNDERWEAR?NO LATEX ALLERGY : HAVE YOU EVER DEVELOPED ANY TYPE OF REACTION DURING OR AFTER DENTAL APPOINTMENT, VAGINAL/RECTAL EXAMINATION, SURGICAL PROCEDURE, OR ANY OTHER EXPOSURE?NO LATEX RISK : HAVE YOU EVER HAD ANY DIFFICULTY BREATHING OR HIVES AFTER EATING OR HANDLING ANY FRUITS, OR VEGETABLES; SUCH KIWI, BANANAS, STONE FRUITS, OR CHESTNUTSNO LATEX RISK : DO YOU HAVE A PREVIOUS PERSONAL HISTORY OF MORE THAN NINE SURGERIES, SPINA BIFIDA, OR REPEATED CATHERIZATIONS? NO LATEX RISK : ARE YOU FREQUENTLY EXPOSED TO LATEX PRODUCTS IN YOUR OCCUPATION?NO DATE ASKED : 11/12/2020 ALCOHOL USE: NO. ALCOHOL SCREENING DID YOU HAVE A DRINK CONTAINING ALCOHOL IN THE PAST YEAR?NO POINTS0 INTERPRETATIONNEGATIVE RECREATIONAL DRUG USE DRUG USE?NO CAFFEINE CAFFEINE USE?NO SHINTO SHINTO NON DEMONIATIONAL LANGUAGE LANGUAGES SPOKEN:BULGARIAN PRIMARY LANGUQGE HUNGARIAN EDUCATION LEVEL OF EDUCATION:FINISHED COLLEGE LEARNING BARRIERS / SPECIAL NEEDS CHANGE FROM LAST VISIT?YES BARRIERS TO LEARNING?NO HEARING IMPAIRED?NO VISION IMPAIRED?YES :CORRECTIVE LENSES COGNITIVELY IMPAIRED?NO READINESS TO LEARN?YES LEARNING PREFERENCES?YES :TAPES/VIDEOS, DEMONSTRATION/VERBAL INSTRUCTION LEARNING CAPABILITIES PRESENT?YES EMOTIONAL BARRIERS?NO SPECIAL DEVICES?YES :CANE CANE WHEN NEEDED APPLE PACKING HEADER NEEDED?NO DOMESTIC VIOLENCE DO YOU FEEL SAFE IN YOUR ENVIRONMENT?YES DIET: DISABLED. EXERCISE: BIKES. MARITAL STATUS: . OTHERS AT HOME: DO YOU FEEL SAFE IN YOUR ENVIRONMENT? 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 IMMUNIZATION PROGRAM DO YOU FEEL SAFE IN YOUR ENVIRONMENT? 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 - PFS REFERRAL NEEDED?NO CLERGY REFERRAL NEEDED?NO PUBLIC HEALTH REFERRAL NEEDED?NO WAS THE PROVIDER NOTIFIED OF ANY PERTINENT INFO? N/A HAS THE PATIENT BEEN EDUCATED REGARDING HIS/HER PLAN OF CARE?YES HAS THE PATIENT BEEN EDUCATED REGARDING PAIN, THE RISK FOR PAIN, THE IMPORTANCE OF EFFECTIVE PAIN MANAGEMENT, AND THE PAIN ASSESSMENT PROCESS?YES ADVANCE DIRECTIVE ADVANCE DIRECTIVE DISCUSSED WITH PATIENT:YES 03/30/2020 PT DOES NOT HAVE ANY ADVANCED DIRECTIVES AND SHE DECLINED HCP INFORMATION AT THIS TIME. AD REVIEW OF SYSTEMS CONSTITUTIONAL: ANY RECENT FEVER NO . CHILLS NO . WEIGHT CHANGE OF UNKNOWN REASONS NO . GASTROENTEROLOGY: NEW UNEXPLAINABLE CHANGES IN BOWEL CONTROL NO . CONSTIPATION NO . GENITOURINARY: ANY NEW CHANGE IN BLADDER CONTROL? NO . NEUROLOGY: NEW ONSET DIZZINESS OR NEUROLOGICAL CHANGES NOT MENTIONED NO . NEW NUMBNESS OR PAIN PATTERNS NOT MENTIONED AND PERTINENT TO TODAY'S VISIT NO . CARDIOLOGY: NEW CHEST PRESSURE NO . PATIENT DENIES NO . RESPIRATORY: UNEXPLAINABLE COUGH NO . NEW SHORTNESS OF BREATH NO . VITAL SIGNS WT 285.2 LBS, HT 55 IN, BMI 66.28 INDEX, BP 174/80 MM HG, REPEAT BP 158/78 MM HG, HR 71 /MIN, RR 18 /MIN, TEMP 98.1 F, OXYGEN SAT % 96%, SAFE IN ENV? (Y/N) YES, REVIEWED BY: CASA [place] RETAKEN. RAHUL PRESTON MA. EXAMINATION GENERAL EXAMINATION: GENERALNO ACUTE DISTRESS, WELL NOURISHED AND HYDRATED. PSYCHAPPROPRIATE MOOD AND AFFECT . LUNGS:CLEAR TO AUSCULTATION BILATERALLY, NO WHEEZES, RHONCHI, RALES. HEART:NO MURMURS, REGULAR RATE AND RHYTHM. ASSESSMENTS PAIN IN LEFT KNEE - M25.562 (PRIMARY), RISK: (NULL) PAIN IN RIGHT KNEE - M25.561, RISK: (NULL) TREATMENT PAIN IN LEFT KNEE NOTES: 50-YEAR-OLD FEMALE IN FOR CHRONIC PAIN FOLLOW-UP. GIVEN PRESENTING SYMPTOMS RECOMMEND INCREASING HYDROCODONE TO 10/325 MG 3 TIMES DAILY WITH FOLLOW-UP IN 3 MONTHS. PATIENT HAS EXPRESSED UNDERSTANDING OF AND WAS IN AGREEMENT WITH TREATMENT PLAN. GIVEN TIME TO ASK QUESTIONS AND EXPRESS CONCERNS. ISTOP REGISTRY REVIEWED AND DEMONSTRATES COMPLLIANCE. (REF # [id number] ) BRINGS IN MEDICATIONS WHICH IS APPROPRIATE FOR WHAT WAS DISPENSED. RECENT URINE TOXICOLOGY REVIEWED. NO UNAUTHORIZED MEDICATIONS. NO ILLICIT SUBSTANCES AND PRESCRIBED MEDICATIONS WERE PRESENT. PROCEDURE CODES [id number] ESTABILISHED PATIENT [facility] CHARGE DISPOSITION & COMMUNICATION FOLLOW UP 3 MONTHS (REASON: KNEE PAIN ) ELECTRONICALLY SIGNED BY BLAINE GRANGER ON 11/13/2020 AT 08:36 AM EDT DISCLAIMER : THIS IS A VISIT SUMMARY EXTRACTED FROM THE [facility] CHART. IT IS NOT A COPY OF THE [facility] PROGRESS NOTE. LOWELL
== END ==
LOC: M PAIN 13:45
PROVIDERS: ATTEND Family Medicine
DX: M25.562 Pain in left knee (principal); M25.561 Pain in right knee; F41.9 Anxiety disorder, unspecified; F32.9 Major depressive disorder, single episode, unspecified; F43.10 Post-traumatic stress disorder, unspecified; G89.29 Other chronic pain; Z87.891 Personal history of nicotine dependence; Z79.891 Long term (current) use of opiate analgesic; Z79.1 Long term (current) use of non-steroidal anti-inflammatories (NSAID); Z79.899 Other long term (current) drug therapy; Z88.0 Allergy status to penicillin; Z88.4 Allergy status to anesthetic agent; Z88.8 Allergy status to other drugs, medicaments and biological substances

== ENCOUNTER → 2021-03-26 | Outpatient (CLI) | payer OTHER | LOC: M PAIN 14:30 | PROVIDERS: ATTEND Anesthesiology | DX: M25.561 Pain in right knee (principal); G89.29 Other chronic pain; M79.2 Neuralgia and neuritis, unspecified; Z86.59 Personal history of other mental and behavioral disorders; Z96.652 Presence of left artificial knee joint; Z87.891 Personal history of nicotine dependence; Z88.0 Allergy status to penicillin; Z88.3 Allergy status to other anti-infective agents; Z88.4 Allergy status to anesthetic agent; Z88.5 Allergy status to narcotic agent; E66.01 Morbid (severe) obesity due to excess calories; Z68.43 Body mass index [BMI] 50.0-59.9, adult; Z79.899 Other long term (current) drug therapy ==

== ENCOUNTER 2021-05-10 09:25 | Outpatient (CLI) | payer OTHER ==
[~2021-05-10 09:25] MED LIST changes: +ALBUTEROL 90 MCG/ACT 8GM HFA INHALER INH PRN; +ALBUTEROL SULFATE 2.5 MG/0.5 ML INH NEB SOLN INH PRN; +EPINEPHrine INJ 1 MG/ML 1ML AMP IM PRN; +NS 1,000 ML IV SCH; +diphenhydrAMINE 50MG/ML VIAL (J1200) IV PRN; +methylPREDNISolone 125MG 2ML VIAL IV PRN
[2021-05-10] MEDS ORDERED: CASIRIVIMAB/IMDEVIMAB 1,200 MG in NS 250 ML IV ONE (09:30)
[2021-05-10 09:43] VITALS: BP 130/70
[2021-05-10 10:13] VITALS: BP 127/62
[2021-05-10 10:43] VITALS: BP 97/57
[2021-05-10 11:45] VITALS: BP 114/56
== END 2021-05-10 11:43 | disposition home or self-care (01) ==
LOC: M OPCLI4 09:25
PROVIDERS: ATTEND Psychiatry & Neurology Psychiatry
DX: U07.1 COVID-19 (principal); Z88.0 Allergy status to penicillin; Z88.8 Allergy status to other drugs, medicaments and biological substances

== ENCOUNTER → 2021-07-15 | Outpatient (CLI) | payer OTHER ==
[~2021-07-15] MED LIST changes: -ALBUTEROL 90 MCG/ACT 8GM HFA INHALER INH PRN; -ALBUTEROL SULFATE 2.5 MG/0.5 ML INH NEB SOLN INH PRN; -EPINEPHrine INJ 1 MG/ML 1ML AMP IM PRN; -NS 1,000 ML IV SCH; -diphenhydrAMINE 50MG/ML VIAL (J1200) IV PRN; -methylPREDNISolone 125MG 2ML VIAL IV PRN
== END ==
LOC: M PAIN 14:15
PROVIDERS: ATTEND Nurse Practitioner Family
DX: M25.561 Pain in right knee (principal); M17.0 Bilateral primary osteoarthritis of knee; F41.9 Anxiety disorder, unspecified; F32.A Depression, unspecified; R03.0 Elevated blood-pressure reading, without diagnosis of hypertension; F43.10 Post-traumatic stress disorder, unspecified; G89.29 Other chronic pain; Z87.891 Personal history of nicotine dependence; Z79.891 Long term (current) use of opiate analgesic; Z79.899 Other long term (current) drug therapy; Z88.0 Allergy status to penicillin; Z88.4 Allergy status to anesthetic agent; Z88.8 Allergy status to other drugs, medicaments and biological substances

== ENCOUNTER → 2021-11-03 | Outpatient (CLI) | payer OTHER | LOC: M PAIN 14:45 | PROVIDERS: ATTEND Nurse Practitioner Family | DX: M25.561 Pain in right knee (principal); G89.29 Other chronic pain; E11.9 Type 2 diabetes mellitus without complications; Z86.59 Personal history of other mental and behavioral disorders; Z87.891 Personal history of nicotine dependence; Z88.0 Allergy status to penicillin; Z88.3 Allergy status to other anti-infective agents; Z88.4 Allergy status to anesthetic agent; Z88.5 Allergy status to narcotic agent; E66.01 Morbid (severe) obesity due to excess calories; Z68.44 Body mass index [BMI] 60.0-69.9, adult; Z79.899 Other long term (current) drug therapy ==

== ENCOUNTER → 2022-01-16 | Outpatient (CLI) | payer OTHER | LOC: M LABSMTC 11:09 | PROVIDERS: ATTEND Orthopaedic Surgery | DX: Z01.812 Encounter for preprocedural laboratory examination (principal); Z20.822 Contact with and (suspected) exposure to COVID-19; M17.11 Unilateral primary osteoarthritis, right knee ==

== ENCOUNTER 2022-01-20 19:48 | Emergency (ER) | payer OTHER ==
[~2022-01-20] VITALS: Ht 162.6 cm; Wt 118.2 kg
[2022-01-20 20:09] VITALS: BP 172/78
[2022-01-20] MEDS ORDERED: PROAAER10 INH (20:37)
[2022-01-20] MEDS ORDERED: METO1TAB7 PO (20:37)
[2022-01-20] MEDS ORDERED: ACET1TAB55 PO (20:37)
[2022-01-20] MEDS ORDERED: IBUP80TA PO (20:37)
[2022-01-20] MEDS ORDERED: ZYLO100T2 PO (20:37)
[2022-01-20] MEDS ORDERED: ASPI1TAB23 PO (20:37)
[2022-01-20] MEDS ORDERED: MONT10TA97 PO (20:37)
[2022-01-20] MEDS ORDERED: CYCL-707 PO (20:37)
[2022-01-20] MEDS ORDERED: HYDR-4517 PO (20:37)
[2022-01-20] MEDS ORDERED: SEMA14TA2 PO (20:37)
[2022-01-20] MEDS ORDERED: OXYC-141 PO (20:37)
[2022-01-20] MEDS ORDERED: TIZA4CAP PO (20:37)
[2022-01-20] MEDS ORDERED: SENN-80 PO (20:37)
[2022-01-20] MEDS ORDERED: PANT40TA29 PO (20:37)
[2022-01-20] MEDS ORDERED: ALPR1TAB3 PO (20:37)
== END 2022-01-20 21:04 | disposition left against medical advice (07) ==
LOC: M ED 19:48 → EDBD 19:48 → M ED 21:04
DX: Z53.29 Procedure and treatment not carried out because of patient's decision for other reasons (principal)

== ENCOUNTER 2022-02-10 10:45 | Outpatient (RCR) | payer OTHER ==
[~2022-02-10 10:45] MED LIST changes: +ACET1TAB55 PO; +ALPR1TAB3 PO; +ASPI1TAB23 PO; +CYCL-707 PO; +HYDR-4517 PO; +IBUP80TA PO; +METO1TAB7 PO; +MONT10TA97 PO; +OXYC-141 PO; +PANT40TA29 PO; +PROAAER10 INH; +SEMA14TA2 PO; +SENN-80 PO; +TIZA4CAP PO; +ZYLO100T2 PO
== END 2022-02-11 ==
LOC: M PT 10:45
PROVIDERS: ATTEND Orthopaedic Surgery
DX: Z47.89 Encounter for other orthopedic aftercare (principal); Z96.651 Presence of right artificial knee joint

== ENCOUNTER → 2022-02-22 | Outpatient (CLI) | payer OTHER | LOC: M PAIN 10:00 | PROVIDERS: ATTEND Nurse Practitioner Family | DX: M25.561 Pain in right knee (principal); G89.29 Other chronic pain; Z86.59 Personal history of other mental and behavioral disorders; Z96.653 Presence of artificial knee joint, bilateral; Z87.891 Personal history of nicotine dependence; Z88.0 Allergy status to penicillin; Z88.3 Allergy status to other anti-infective agents; Z88.4 Allergy status to anesthetic agent; Z88.5 Allergy status to narcotic agent; E66.01 Morbid (severe) obesity due to excess calories; Z68.43 Body mass index [BMI] 50.0-59.9, adult; Z79.899 Other long term (current) drug therapy ==

== ENCOUNTER 2022-02-23 14:01 | Outpatient (RCR) | payer OTHER | END 2022-03-14 | LOC: M PT 14:01 | PROVIDERS: ATTEND Orthopaedic Surgery | DX: Z96.651 Presence of right artificial knee joint (principal) ==

== ENCOUNTER → 2022-03-24 | Outpatient (CLI) | payer OTHER | LOC: M PAIN 10:00 | PROVIDERS: ATTEND Nurse Practitioner Family | DX: M25.561 Pain in right knee (principal); G89.29 Other chronic pain; I10 Essential (primary) hypertension; Z86.59 Personal history of other mental and behavioral disorders; Z96.653 Presence of artificial knee joint, bilateral; Z87.891 Personal history of nicotine dependence; Z88.0 Allergy status to penicillin; Z88.3 Allergy status to other anti-infective agents; Z88.4 Allergy status to anesthetic agent; Z88.8 Allergy status to other drugs, medicaments and biological substances; E66.01 Morbid (severe) obesity due to excess calories; Z68.43 Body mass index [BMI] 50.0-59.9, adult; Z79.899 Other long term (current) drug therapy ==

== ENCOUNTER → 2022-06-23 | Outpatient (REF) | payer OTHER ==
[2022-06-23 16:54] LABS: HEMOGLOBIN A1c 5.6 % (4.0-6.0)
[2022-06-23 17:07] LABS: BLOOD UREA NITROGEN 17 MG/DL (9-23); CALCIUM LEVEL 9.2 MG/DL (8.5-10.1); CARBON DIOXIDE LEVEL 27 MMOL/L (20-31); CHLORIDE LEVEL 101 MMOL/L (98-107); CHOLESTEROL LEVEL 182 MG/DL (<200); CHOLESTEROL RISK RATIO 4.49 (<5); CREATININE FOR GFR 0.73 MG/DL (0.55-1.30); GLOMERULAR FILTRATION RATE > 60.0 (>51); GLUCOSE, FASTING 77 MG/DL (60-100); HDL CHOLESTEROL 40.5 MG/DL (>40); LDL CHOLESTEROL 93.5 MG/DL (<100); NON-HDL-C 142 MG/DL; POTASSIUM SERUM 4.6 MMOL/L (3.5-5.1); SODIUM LEVEL 134 MMOL/L (136-145); TRIGLYCERIDES LEVEL 240 MG/DL (<150)
[2022-06-23 17:09] LABS: THYROID STIMULATING HORMONE 5.377 uIU/ML (0.55-4.78); TOTAL 25(OH) VITAMIN D 21.7 NG/ML (20.0-100.0)
== END ==
LOC: M LAB REF 16:17
PROVIDERS: ATTEND Physician Assistant
DX: E78.5 Hyperlipidemia, unspecified (principal); E11.9 Type 2 diabetes mellitus without complications; E55.9 Vitamin D deficiency, unspecified; E03.9 Hypothyroidism, unspecified

== ENCOUNTER → 2022-08-08 | Outpatient (CLI) | payer OTHER | LOC: M PAIN 09:30 | PROVIDERS: ATTEND Nurse Practitioner Family | DX: M25.561 Pain in right knee (principal); M17.0 Bilateral primary osteoarthritis of knee; F41.9 Anxiety disorder, unspecified; F32.A Depression, unspecified; F43.10 Post-traumatic stress disorder, unspecified; G89.29 Other chronic pain; E11.9 Type 2 diabetes mellitus without complications; E78.00 Pure hypercholesterolemia, unspecified; E03.9 Hypothyroidism, unspecified; K21.9 Gastro-esophageal reflux disease without esophagitis; E55.9 Vitamin D deficiency, unspecified; Z87.891 Personal history of nicotine dependence; Z79.891 Long term (current) use of opiate analgesic; Z79.899 Other long term (current) drug therapy; Z88.0 Allergy status to penicillin; Z88.4 Allergy status to anesthetic agent; Z88.8 Allergy status to other drugs, medicaments and biological substances ==

== ENCOUNTER 2022-09-08 15:15 | Outpatient (RCR) | payer OTHER ==
[~2022-09-08 15:15] MED LIST changes: +SENN-186 PO; -SENN-80 PO
== END 2022-09-11 ==
LOC: M PT 15:15
PROVIDERS: ATTEND Physician Assistant
DX: M25.561 Pain in right knee (principal)

== ENCOUNTER 2022-10-06 15:15 | Outpatient (RCR) | payer OTHER | END 2022-10-12 | LOC: M PT 15:15 | PROVIDERS: ATTEND Physician Assistant | DX: M25.561 Pain in right knee (principal) ==

== ENCOUNTER → 2022-10-07 | Outpatient (CLI) | payer OTHER | LOC: M PAIN 15:15 | PROVIDERS: ATTEND Nurse Practitioner Family | DX: M25.561 Pain in right knee (principal); G89.29 Other chronic pain; M17.0 Bilateral primary osteoarthritis of knee; F41.9 Anxiety disorder, unspecified; F43.10 Post-traumatic stress disorder, unspecified; E11.9 Type 2 diabetes mellitus without complications; E78.5 Hyperlipidemia, unspecified; E03.9 Hypothyroidism, unspecified; K21.9 Gastro-esophageal reflux disease without esophagitis; E55.9 Vitamin D deficiency, unspecified; F32.2 Major depressive disorder, single episode, severe without psychotic features; Z87.891 Personal history of nicotine dependence; Z79.891 Long term (current) use of opiate analgesic; Z79.899 Other long term (current) drug therapy; Z88.0 Allergy status to penicillin; Z88.8 Allergy status to other drugs, medicaments and biological substances ==

== ENCOUNTER → 2022-10-26 | Outpatient (CLI) | payer OTHER | LOC: M EKG 15:09 | PROVIDERS: ATTEND Physician Assistant | DX: R00.2 Palpitations (principal) ==

== ENCOUNTER 2022-10-31 14:30 | Outpatient (RCR) | payer OTHER | END 2022-11-11 | LOC: M PT 14:30 | PROVIDERS: ATTEND Physician Assistant | DX: M25.561 Pain in right knee (principal); Z96.651 Presence of right artificial knee joint ==

== ENCOUNTER → 2022-11-03 | Outpatient (CLI) | payer OTHER | LOC: M TMPAIN 11:30 → M PAIN 11:30 | PROVIDERS: ATTEND Nurse Practitioner Family | DX: M25.561 Pain in right knee (principal); G89.29 Other chronic pain; M17.0 Bilateral primary osteoarthritis of knee; F41.9 Anxiety disorder, unspecified; F32.A Depression, unspecified; F43.10 Post-traumatic stress disorder, unspecified; E78.5 Hyperlipidemia, unspecified; K21.9 Gastro-esophageal reflux disease without esophagitis; E03.9 Hypothyroidism, unspecified; E55.9 Vitamin D deficiency, unspecified; E11.9 Type 2 diabetes mellitus without complications; I10 Essential (primary) hypertension; Z87.891 Personal history of nicotine dependence; Z79.891 Long term (current) use of opiate analgesic; Z79.899 Other long term (current) drug therapy; Z88.8 Allergy status to other drugs, medicaments and biological substances; Z88.0 Allergy status to penicillin; Z88.4 Allergy status to anesthetic agent ==

== ENCOUNTER → 2022-11-22 | Outpatient (REF) | payer OTHER ==
[2022-11-22 18:26] LABS: BLOOD UREA NITROGEN 14 MG/DL (9-23); CALCIUM LEVEL 9.3 MG/DL (8.5-10.1); CARBON DIOXIDE LEVEL 25 MMOL/L (20-31); CHLORIDE LEVEL 103 MMOL/L (98-107); CREATININE FOR GFR 0.62 MG/DL (0.55-1.30); GLOMERULAR FILTRATION RATE > 60.0 (>51); GLUCOSE, FASTING 124 MG/DL (60-100); POTASSIUM SERUM 4.8 MMOL/L (3.5-5.1); SODIUM LEVEL 136 MMOL/L (136-145)
[2022-11-22 18:27] LABS: THYROID STIMULATING HORMONE 3.033 uIU/ML (0.55-4.78)
[2022-11-22 18:28] LABS: RHEUMATOID FACTOR QUANT 27.3 IU/ML (<14)
== END ==
LOC: M LAB REF 16:17
PROVIDERS: ATTEND Physician Assistant
DX: E03.9 Hypothyroidism, unspecified (principal); E11.9 Type 2 diabetes mellitus without complications; E66.9 Obesity, unspecified; R76.0 Raised antibody titer; M25.50 Pain in unspecified joint

== ENCOUNTER → 2022-12-08 | Outpatient (CLI) | payer OTHER | LOC: M PAIN 14:30 | PROVIDERS: ATTEND Nurse Practitioner Family | DX: M25.561 Pain in right knee (principal); M17.0 Bilateral primary osteoarthritis of knee; F41.9 Anxiety disorder, unspecified; F32.9 Major depressive disorder, single episode, unspecified; F43.10 Post-traumatic stress disorder, unspecified; G89.29 Other chronic pain; E78.00 Pure hypercholesterolemia, unspecified; E03.9 Hypothyroidism, unspecified; K21.9 Gastro-esophageal reflux disease without esophagitis; E55.9 Vitamin D deficiency, unspecified; E11.9 Type 2 diabetes mellitus without complications; E78.5 Hyperlipidemia, unspecified; I10 Essential (primary) hypertension; M06.9 Rheumatoid arthritis, unspecified; Z87.891 Personal history of nicotine dependence; Z79.891 Long term (current) use of opiate analgesic; Z79.899 Other long term (current) drug therapy; Z88.0 Allergy status to penicillin; Z88.4 Allergy status to anesthetic agent; Z88.8 Allergy status to other drugs, medicaments and biological substances ==

== ENCOUNTER → 2023-08-09 | Outpatient (CLI) | payer OTHER | LOC: M SLEEP 20:00 | PROVIDERS: ATTEND Nurse Practitioner Adult Health | DX: G47.30 Sleep apnea, unspecified (principal) ==

== ENCOUNTER → 2023-11-02 | Outpatient (CLI) | payer OTHER ==
[2023-11-02 19:57] LABS: HEMOGLOBIN A1c 5.9 % (4.0-6.0)
[2023-11-02 20:02] LABS: ALBUMIN 3.4 G/DL (3.2-5.2); ALKALINE PHOSPHATASE 71 U/L (46-116); ALT/SGPT 36 U/L (7.0-40); AST/SGOT 35 U/L (<34); BILIRUBIN,TOTAL 0.3 MG/DL (0.3-1.2); BLOOD UREA NITROGEN 16 MG/DL (9-23); CALCIUM LEVEL 8.5 MG/DL (8.5-10.1); CARBON DIOXIDE LEVEL 27 MMOL/L (20-31); CHLORIDE LEVEL 106 MMOL/L (98-107); CHOLESTEROL LEVEL 100 MG/DL (<200); CHOLESTEROL RISK RATIO 3.37 (<5); CREATININE FOR GFR 0.65 MG/DL (0.55-1.30); GLOMERULAR FILTRATION RATE > 60.0 (>51); GLUCOSE, FASTING 175 MG/DL (60-100); HDL CHOLESTEROL 29.6 MG/DL (>40); LDL CHOLESTEROL 23.4 MG/DL (<100); NON-HDL-C 70.4 MG/DL; POTASSIUM SERUM 4.2 MMOL/L (3.5-5.1); SODIUM LEVEL 137 MMOL/L (136-145); TOTAL PROTEIN 6.4 G/DL (5.7-8.2); TRIGLYCERIDES LEVEL 235 MG/DL (<150)
[2023-11-02 20:04] LABS: THYROID STIMULATING HORMONE 3.097 uIU/ML (0.55-4.78)
== END ==
LOC: M LAB 18:33
PROVIDERS: ATTEND Family Medicine Addiction Medicine
DX: M25.561 Pain in right knee (principal); E11.9 Type 2 diabetes mellitus without complications

== ENCOUNTER → 2023-11-09 | Outpatient (CLI) | payer OTHER | LOC: M RAD 15:11 | PROVIDERS: ATTEND Family Medicine Addiction Medicine | DX: M54.12 Radiculopathy, cervical region (principal) ==